=== PATIENT | male | born 1960 | race Caucasian/White ===

== ENCOUNTER 2020-07-29 11:04 | Outpatient (REF) | payer MEDICARE, MEDICAID, SELFPAY | END 2020-07-29 11:05 | disposition home or self-care (01) | LOC: HO.LAB 11:04 | PROVIDERS: Visit Provider Internal Medicine | DX: Z20.828 Contact with and (suspected) exposure to other viral communicable diseases (principal) | CPT/HCPCS: C9803; U0003 ==

== ENCOUNTER 2020-08-12 16:31 | Outpatient (REF) | payer MEDICARE, MEDICAID, SELFPAY | END 2020-08-12 16:32 | disposition home or self-care (01) | LOC: HO.LAB 16:31 | PROVIDERS: Visit Provider Internal Medicine | DX: Z20.828 Contact with and (suspected) exposure to other viral communicable diseases (principal) | CPT/HCPCS: C9803; U0003 ==

== ENCOUNTER 2020-08-29 16:41 | Outpatient (REF) | payer MEDICARE, MEDICAID, SELFPAY | END 2020-08-29 16:42 | disposition home or self-care (01) | LOC: HO.LAB 16:41 | PROVIDERS: Visit Provider Internal Medicine | DX: Z20.828 Contact with and (suspected) exposure to other viral communicable diseases (principal) | CPT/HCPCS: C9803; U0003 ==

== ENCOUNTER 2020-12-27 02:36 | Emergency (ER) | payer MEDICARE, MEDICAID, SELFPAY ==
--- NOTE | ~2020-12-27 | CT_ITS ---
EXAMINATION: NONCONTRAST HEAD CT NONCONTRAST MAXILLOFACIAL CT NONCONTRAST CERVICAL SPINE CT INDICATION INFORMATION: Unwitnessed fall COMPARISON: 05/31/2019 TECHNIQUE: Separate noncontrast CT examinations of the head, maxillofacial bones, and cervical spine were performed. Coronal and sagittal images were created for each examination at the technologist workstation. This CT examination was performed using dose optimization techniques as appropriate, variously including the following: *Automated exposure control *Adjustment of mA and/or kV according to patient size (this includes techniques or standardized protocols for targeted exams where dose is matched to indication/reason for exam; i.e. extremities or head) *Use of iterative reconstruction technique DLP: 2364 mGy-cm FINDINGS: Head: There is no evidence of acute intracranial hemorrhage or territorial infarction. No abnormal mass effect or midline shift is seen. [place] to white matter differentiation is well preserved. No extra-axial fluid collections are identified. No hydrocephalus. Small calcification seen in the fourth ventricle, unchanged from prior. Proportional prominence of the ventricles and sulcal spaces is consistent with mild volume loss. There is no abnormal attenuation within the brain parenchyma. No acute soft tissue abnormality. No calvarial fracture. The mastoid air cells are well aerated. Maxillofacial: No acute maxillofacial fractures are seen. The pterygoid plates are intact. The lamina papyracea are intact. The zygomatic arches are intact. The orbital rims are intact. Radiopaque density in the lower lip soft tissues. The frontal, maxillary, ethmoid, and sphenoid sinuses are well aerated. The uncinate process is normal bilaterally. The infundibula and middle meati are patent. The nasal septum deviates to the right. The mandibular heads are well-seated in the condylar fossa. The orbits demonstrate a normal appearance bilaterally. The globes are intact, and there are no suspicious findings to suggest retrobulbar hemorrhage. Cervical spine: Anterior fusion hardware in place from C4-C7. Hardware is intact. Alignment is maintained. There is anatomic alignment of the vertebral bodies and posterior elements. The atlantoaxial and atlantooccipital articulations are intact. Vertebral body heights are maintained. Disc space narrowing at C3-C4 with endplate sclerosis. Mild multilevel facet arthropathy. No evidence of acute fracture. No prevertebral soft tissue swelling. Visualized portions of the lung apices are unremarkable. The thyroid gland is unremarkable. CT/CT cervical spine wo con IMPRESSION: 1. No acute intracranial finding. 2. No acute maxillofacial fracture. 3. No cervical spine fracture or malalignment. Intact fusion hardware.
--- NOTE | 2020-12-27 02:43 | ECG_ITS ---
Test Reason : FALL Blood Pressure : / mmHG Vent. Rate : 088 BPM Atrial Rate : 088 BPM P-R Int : 144 ms QRS Dur : 104 ms QT Int : 374 ms P-R-T Axes : 053 025 051 degrees QTc Int : 452 ms Normal sinus rhythm with sinus arrhythmia Normal ECG When compared with ECG of 01-JUN-2019 12:30, No significant change was found Referred By: Joan Zamora Electronically Signed By:DANIELLA MARTIN MD
[2020-12-27 02:45] VITALS: BP 100/60; BP 106/73; PULSE 84; PULSE 90; RESP 19; TEMP 36.8; O2SAT 97; BMI 26.9
--- NOTE | 2020-12-27 02:55 | ED_ITS ---
HPI - Fall General Chief Complaint: Fall Stated Complaint: fall Time Seen by Provider: 12/27/20 02:43 Source: patient, family (Daughter) and EMS Mode of arrival: EMS History of Present Illness HPI Narrative: 60-year-old male arrives via EMS from home status post unwitnessed fall. Patient states that he has multiple myeloma, does not recall the fall event. As per the daughter she states that she heard her father groaning and went in the kitchen to find him laying on the ground. She endorses that patient was instructed to stop taking his gabapentin and amitriptyline, however she suspects that he has taken it regardless. Otherwise, patient denies any fever, chills, shortness of breath, chest pain, GI symptoms, or symptoms. Related Data Home Medications Medication Instructions Recorded Confirmed atorvastatin 20 mg PO BEDTIME 12/27/20 12/27/20 fluoxetine 40 mg PO QAM 12/27/20 12/27/20 omeprazole 40 mg PO DAILY 12/27/20 12/27/20 topiramate [Topamax] 50 mg PO QPM 12/27/20 12/27/20 Allergies Allergy/AdvReac Type Severity Reaction Status Date / Time acetaminophen [From PERCOCET] Allergy Unknown RASH Verified 12/27/20 04:28 oxycodone [From PERCOCET] Allergy Unknown RASH Verified 12/27/20 04:28 Review of Systems Review of Systems: Pertinent positives and negatives as stated in HPI 10 point review of systems is otherwise negative. PMFSH Past Medical History Source: nursing notes reviewed Social History Social History Alcohol intake: current Alcohol intake frequency: a few times a month Smoking Status: Never smoker Use of substances other than those prescribed or required for medical reasons: No Advance Directives: No Physical Exam Vital Signs: Vital Signs: Last Vital Signs Temp 98.2 F 12/27/20 03:04 Pulse 87 12/27/20 05:55 Resp 16 12/27/20 05:55 BP 132/80 12/27/20 05:55 Pulse Ox 97 12/27/20 05:55 Body Mass Index 26.9 VITAL SIGNS: Reviewed. GENERAL: Well developed, well nourished, in no acute distress. HEAD: Normocephalic/atraumatic, EYES: PERRLA, EOMI intact without pain, no nystagmus EARS: Ext canals without abnormality NOSE: Nares patent bilateral OROPHARYNX: no oral lesions noted, posterior pharynx clear 2-3 teeth are chipped as well as a laceration at the lower lip and under side of chin. NECK: Supple, no adenopathy LUNGS: Normal breath sounds. No adventitious sounds or accessory muscle use. SpO2<97> CARDIOVASCULAR: Regular rate and rhythm without noted murmurs, ABDOMEN: Soft, non-tender, non-distended with bowel sounds. MUSCULOSKELETAL: No tenderness, deformities, or effusions noted on gross inspection. EXTREMITIES: No cyanosis, clubbing or edema. SKIN: Inspection of the skin reveals avulsion at left dorsum hand, hemostatic NEUROLOGIC: Alert and oriented x 4. Strength and sensation to light touch were grossly intact x 4. Course Course Course Narrative: 60-year-old male with history and clinical presentation suggestive of syncope and unclear if secondary to medication but will rule out infection/anemia/arrhythmia as well as CT head/face/cervical spine. Review of all investigations negative for acute findings. Through and through laceration of the base of the lower lip and laceration of submental repaired without complications. Suspect patient has fall in the absence of any acute medical findings is secondary to medication usage that he had been instructed to avoid. Patient was ambulated at bedside without difficulty prior to discharge. Procedures Laceration Laceration 1: Site: face (Chin) Size (cm): 2 Description: linear Depth: [id number] Local Anesthetic: lidocaine 2% Amount of anesthesia used (mL): 2 Pre-repair: wound explored, irrigated extensively and deep structures intact Skin layer closed with: nylon Size (cm): 3-0 Number of sutures: 3 Technique: simple, interrupted Laceration 2: Site: face (Submental) Size (cm): 2 Description: linear Depth: simple, single layer Local Anesthetic: lidocaine 2% Amount of anesthesia used (mL): 1 Pre-repair: wound explored, irrigated extensively and deep structures intact Skin layer closed with: nylon Size (cm): 3-0 Number of sutures: 2 Laceration 3: Site: other (Mouth) Size (cm): 2 Description: linear Depth: [id number] Local Anesthetic: lidocaine 2% Amount of anesthesia used (mL): 2 Pre-repair: wound explored and irrigated extensively Skin layer closed with: other (Chromic gut) Size (cm): 6-0 Number of sutures: 3 Technique: simple, interrupted MDM - Fall Lab Data Result diagrams: 12/27/20 03:32 12/27/20 03:32 Labs: Lab Results 12/27/20 12/27/20 12/27/20 Range/Units 03:32 03:32 03:32 WBC 10.0 (4.8-10.8) X10*3/uL RBC 4.92 (4.60-5.80) X10*6/uL Hgb 14.0 (14.0-18.0) g/dl Hct 42.8 (42-52) % MCV 87.0 (80-98) fL MCH 28.5 (27.0-33.0) pg MCHC 32.7 (31.0-36.0) g/dl RDW 15.6 (11.0-16.0) % Plt Count 216 (160-400) X10*3/uL MPV 9.2 L (9.4-12.4) fL Immature Gran % (Auto) 0.4 (0.0-0.4) % Neut % (Auto) 81.5 H (45-73) % Lymph % (Auto) 10.7 L (20-40) % Treg[place] % (Auto) 7.2 (2-11) % Eos % (Auto) 0.0 (0-4) % Baso % (Auto) 0.2 (0-2) % Lymph # (Auto) 1.1 L (1.2-4.9) X10*3/uL [place] # (Auto) 0.7 (0.1-1.2) X10*3/uL Eos # (Auto) 0.0 (0.0-0.4) X10*3/uL Baso # (Auto) 0.0 (0.0-0.2) X10*3/uL Abs Immat Gran (auto) 0.04 H (0.00-0.03) X10*3/uL Absolute Neuts (auto) 8.1 (2.0-8.3) X10*3/uL Absolute Nucleated RBC 0.000 (0.0-0.012) X10*3/uL Nucleated RBC % (auto) 0.0 (0.0-0.2) /100WBC PT (10.8-13.0) SEC INR (0.9-1.1) APTT (24.1-38.0) SEC Sodium 142 (135-145) mmol/L Potassium 3.9 (3.3-5.1) mmol/L Chloride 109 H (96-108) mmol/L Carbon Dioxide 21 L (22-29) mmol/L Anion Gap 16 (12-20) BUN 26 H (9-16) mg/dL Creatinine 1.37 (0.5-1.4) mg/dL Estim Creat Clear Calc 48.6 Estimated GFR 53 Random Glucose 120 H (60-115) mg/dL Calcium 9.4 (8.4-10.2) mg/dL Total Bilirubin 0.3 (0.0-1.0) mg/dL AST 21 (5-37) U/L ALT 22 (0-40) U/L Alkaline Phosphatase 85 (39-117) U/L Troponin I High Sens (<3.5-35.0) ng/L Total Protein 6.0 L (6.5-8.0) g/dL Albumin 3.9 (3.5-5.0) g/dL Urine Color Urine Appearance Urine pH (5.0-8.0) Ur Specific [place] (1.005-1.025) Urine Protein (NEG-TRACE) MG/DL Urine Glucose (UA) (NEG) MG/DL Urine Ketones (NEG) MG/DL Urine Blood (NEG) Urine Nitrite (NEG) Ur Leukocyte Esterase (NEG) Urine RBC (0) /HPF Urine WBC (0-4) /HPF Ur Squamous Epith Cells /LPF Urine Bacteria /LPF Urine Mucus /LPF Ethyl Alcohol < 10 mg/dL 12/27/20 12/27/20 12/27/20 Range/Units 03:32 03:32 06:25 WBC (4.8-10.8) X10*3/uL RBC (4.60-5.80) X10*6/uL Hgb (14.0-18.0) g/dl Hct (42-52) % MCV (80-98) fL MCH (27.0-33.0) pg MCHC (31.0-36.0) g/dl RDW (11.0-16.0) % Plt Count (160-400) X10*3/uL MPV (9.4-12.4) fL Immature Gran % (Auto) (0.0-0.4) % Neut % (Auto) (45-73) % Lymph % (Auto) (20-40) % Trego % (Auto) (2-11) % Eos % (Auto) (0-4) % Baso % (Auto) (0-2) % Lymph # (Auto) (1.2-4.9) X10*3/uL [place] # (Auto) (0.1-1.2) X10*3/uL Eos # (Auto) (0.0-0.4) X10*3/uL Baso # (Auto) (0.0-0.2) X10*3/uL Abs Immat Gran (auto) (0.00-0.03) X10*3/uL Absolute Neuts (auto) (2.0-8.3) X10*3/uL Absolute Nucleated RBC (0.0-0.012) X10*3/uL Nucleated RBC % (auto) (0.0-0.2) /100WBC PT 11.9 (10.8-13.0) SEC INR 1.0 (0.9-1.1) APTT 26.7 (24.1-38.0) SEC Sodium (135-145) mmol/L Potassium (3.3-5.1) mmol/L Chloride (96-108) mmol/L Carbon Dioxide (22-29) mmol/L Anion Gap (12-20) BUN (9-16) mg/dL Creatinine (0.5-1.4) mg/dL Estim Creat Clear Calc Estimated GFR Random Glucose (60-115) mg/dL Calcium (8.4-10.2) mg/dL Total Bilirubin (0.0-1.0) mg/dL AST (5-37) U/L ALT (0-40) U/L Alkaline Phosphatase (39-117) U/L Troponin I High Sens < 3.5 (<3.5-35.0) ng/L Total Protein (6.5-8.0) g/dL Albumin (3.5-5.0) g/dL Urine Color DARK YELLOW Urine Appearance CLEAR Urine pH 7.0 (5.0-8.0) Ur Specific [place] 1.020 (1.005-1.025) Urine Protein NEG (NEG-TRACE) MG/DL Urine Glucose (UA) NEG (NEG) MG/DL Urine Ketones 5 (NEG) MG/DL Urine Blood TRACE (NEG) Urine Nitrite NEG (NEG) Ur Leukocyte Esterase NEG (NEG) Urine RBC 1-4 (0) /HPF Urine WBC 0-2 (0-4) /HPF Ur Squamous Epith Cells 1+ /LPF Urine Bacteria NONE /LPF Urine Mucus 1+ /LPF Ethyl Alcohol mg/dL ECG Data Attestation: I personally reviewed and interpreted this ECG as follows: Prior ECG tracings: available for review (06/01/2019 no acute changes on comparison) Interpretation: Normal sinus rhythm, HR-88, no evidence of acute ischemia, DC/QTC are within normal limits Discharge Plan Discharge Clinical Impression: Fall, Laceration Patient Disposition: Home, Self-Care Instructions: Care For Your Stitches (ED), Laceration (ED), Abrasion (ED) Additional Instructions: Resume all home medications as prescribed. STOP gabapentin and amitriptyline as you have previously been instructed to do so. Follow-up with your primary care provider in the next 1-2 days for re- evaluation. Sutures should be removed in 5 days, you may cleanse the area gently with soap and water. YOU MUST FOLLOW-UP WITH A DENTIST TODAY. Return to the emergency department if you have any acute worsening of your symptoms. Prescriptions: No Action fluoxetine 40 mg Capsule 40 mg PO QAM RF: 0 atorvastatin 20 mg Tablet 20 mg PO BEDTIME RF: 0 omeprazole 40 mg Capsule,Delayed Release(Dr/Ec) 40 mg PO DAILY RF: 0 topiramate [Topamax] 50 mg Tablet 50 mg PO QPM RF: 0 Referrals: Physician,Unknown [Primary Care Provider] - 2 days
[2020-12-27 03:04] VITALS: BP 106/73; PULSE 82; RESP 18; TEMP 36.8; O2SAT 96
[2020-12-27 03:37] LABS: Basophils Percent Auto 0.2 % (0-2); Hematocrit 42.8 % (42-52); Imm Gran Abs Auto 0.04 X10*3/uL (0.00-0.03); Imm Gran Pct Auto 0.4 % (0.0-0.4); Lymphocytes Absolute Auto 1.1 X10*3/uL (1.2-4.9); Lymphocytes Percent Auto 10.7 % (20-40); MANUAL DIFF FLAG NO; Mean Corpuscular HGB Conc 32.7 g/dl (31.0-36.0); Mean Corpuscular Hemoglobin 28.5 pg (27.0-33.0); Mean Platelet Volume 9.2 fL (9.4-12.4); Monocytes Absolute Auto 0.7 X10*3/uL (0.1-1.2); Monocytes Percent Auto 7.2 % (2-11); Neutrophils Absolute Auto 8.1 X10*3/uL (2.0-8.3); Neutrophils Percent Auto 81.5 % (45-73); Platelet Count 216 X10*3/uL (160-400); Red Blood Count 4.92 X10*6/uL (4.60-5.80); Red Cell Distribution Width 15.6 % (11.0-16.0)
--- NOTE | 2020-12-27 03:38 | PC.NURSE ---
Pt aaox4, resting on stretcher in NAD, breathing with ease on RA. Pt stretcher rails are padded with pillows as no seizure pads were available. Pt labs, head CT and EKG obtained; awaiting results. 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 Pt VSS. Stretcher in lowest locked position, rails raised, call estrada within reach.
[2020-12-27 03:42] LABS: Prothrombin Time 11.9 SEC (10.8-13.0)
[2020-12-27 03:45] LABS: Partial Thromboplastin Time 26.7 SEC (24.1-38.0)
[2020-12-27 04:01] LABS: Ethanol < 10 mg/dL
[2020-12-27 04:05] LABS: Alanine Aminotransferase 22 U/L (0-40); Albumin Level 3.9 g/dL (3.5-5.0); Alkaline Phosphatase 85 U/L (39-117); Anion Gap 16 (12-20); Aspartate Amino Transferase 21 U/L (5-37); Bilirubin Total 0.3 mg/dL (0.0-1.0); Blood Urea Nitrogen 26 mg/dL (9-16); Calcium 9.4 mg/dL (8.4-10.2); Carbon Dioxide 21 mmol/L (22-29); Chloride 109 mmol/L (96-108); Creatinine Clr Calc Pharmacy 48.6; Estimated Glomerular Filt Rate 53; Glucose Random 120 mg/dL (60-115); Potassium 3.9 mmol/L (3.3-5.1); Sodium 142 mmol/L (135-145)
--- NOTE | 2020-12-27 04:08 | PC.NURSE ---
This RN spoke to pt's daughter, Edilia [phone], who states she woke up to her father making some noise. Daughter found pt on kitchen floor after he had sustained the unwitnessed fall with noticeable injury. Per daughter, she believes pt may have taken both gabapentin and amitriptyline for sleep stating his doctor told him to stop taking those but he still has them from when they were prescribed and I think that he takes them when he can't sleep but they make him unsteady on his feet.
[2020-12-27 04:10] LABS: Troponin-I High Sensitivity < 3.5 ng/L (<3.5-35.0)
[2020-12-27] MEDS: Lidocaine HCl 2 % MPF 5 ML VIAL INFILTRATI (05:11)
--- NOTE | 2020-12-27 05:11 | PC.NURSE ---
lido scanned and given to provider for use
[2020-12-27 05:55] VITALS: BP 132/80; PULSE 87; RESP 16; O2SAT 97
[2020-12-27] MEDS: Bacitracin Oint 14 GM TUBE 1 APPL TOPICAL (06:13)
--- NOTE | 2020-12-27 06:25 | PC.NURSE ---
Pt able to stand to provide urine sample in urinal. Pt denies feelings of lightheadedness/dizziness. Pt states I'm just really, really tired. This RN as standby assist though pt able to ambulate independently. Urine sample sent to lab for processing.
[2020-12-27 06:37] LABS: Glucose Urine UA NEG (NEG); Leukocyte Esterase Urine NEG (NEG); Nitrite Urine NEG (NEG); Urine Blood TRACE (NEG); Urine Ketones 5 MG/DL (NEG); Urine Protein NEG (NEG-TRACE)
[2020-12-27 06:41] LABS: Appearance Urine CLEAR; Color Urine DARK YELLOW
[2020-12-27 06:50] LABS: Mucus Urine 1+ /LPF; Squamous Epithelial Cell Urine 1+ /LPF; WBC Urine 0-2 /HPF (0-4)
[2020-12-27 06:53] LABS: Amphetamine Screen Urine Not Detected (Not Detect); Barbiturates, Urine Not Detected (Not Detect); Benzodiazepines Screen Urine POSITIVE (Not Detect); Cannabinoid Screen Urine POSITIVE (Not Detect); Cocaine Screen Urine Not Detected (Not Detect); Opiate Screen Urine Not Detected (Not Detect); Phencyclidine Screen Urine Not Detected (Not Detect)
--- NOTE | 2020-12-27 06:53 | PC.NURSE ---
This RN called pt's daughter Edilia and gave information regarding pt's need to f/u with PCP for suture removal in 5 days, and need for f/u with dentist today d/t chipped tooth. Edilia expresses understanding. Edilia states she is unable to pick father up from ED, will contact her uncle Rodolfo to rock picker patient.
== END 2020-12-27 07:34 | disposition home or self-care (01) ==
PROVIDERS: Emergency Provider Student in an Organized Health Care Education/Training Program
DX: S01.512A Laceration without foreign body of oral cavity, initial encounter (principal); S01.81XA Laceration without foreign body of other part of head, initial encounter; S60.512A Abrasion of left hand, initial encounter; W18.30XA Fall on same level, unspecified, initial encounter; Y93.9 Activity, unspecified; Y92.010 Kitchen of single-family (private) house as the place of occurrence of the external cause; Y99.9 Unspecified external cause status
CPT/HCPCS: 12054; 36415; 70450; 70486; 72125; 80053; 80307; 80320; 81001; 84484; 85025; 85610; 85730; 93005; 99284; 99285

== ENCOUNTER 2021-02-13 22:03 | Emergency (ER) | payer MEDICARE, MEDICAID, SELFPAY ==
--- NOTE | ~2021-02-13 | US_ITS ---
EXAMINATION: US SCROTUM CLINICAL INFORMATION: Left testicular pain for 4 days. COMPARISON: None TECHNIQUE: A sonogram of the scrotum was performed assessing henley-scale appearance and color Doppler flow. Spectral Doppler analysis of the arterial and venous flow were performed in the testes bilaterally. FINDINGS: RIGHT: Right testicle measures 4.3 x 1.9 x 2.4 cm, volume 10 mL. No focal testicular parenchymal lesions are visualized. Spectral Doppler analysis of the arterial and venous flow is normal in the right testis. Right epididymal head is normal in size. There is a 2 mm cyst within the epididymal head. No right hydrocele or varicocele is seen. Right epididymal Doppler flow is normal. LEFT: Left testicle measures 3.7 x 1.8 x 2.0 cm, volume 7.1 mL. The left testicular parenchyma is slightly heterogeneous. No focal testicular parenchymal lesions are visualized. Spectral Doppler analysis of the arterial and venous flow is normal in the left testis. Left epididymal head is normal in size. There is a 6 mm cyst within the epididymal head and a 5 mm cyst within the epididymal body. No left hydrocele or varicocele is seen. Left epididymal Doppler flow is normal. US/US scrotum IMPRESSION: * Nonspecific mild heterogeneity of the left testicular parenchyma, without corresponding abnormality/asymmetry in blood flow. This could represent parenchymal scarring related to previous infectious/inflammatory or posttraumatic insult, or very mild/early orchitis. * Small bilateral epididymal/epididymal head cysts/spermatocele. * No evidence of testicular torsion
--- NOTE | ~2021-02-13 | CT_ITS ---
EXAMINATION: CT ABDOMEN AND PELVIS WITH CONTRAST CLINICAL INFORMATION: Lower abdominal pain COMPARISON: None TECHNIQUE: Multidetector volumetric images were obtained from the superior aspect of the liver through the pubic symphysis following administration 85 mL of Omnipaque 350 intravenous contrast. Sagittal and coronal reformatted images were obtained on the technologist's workstation. Oral contrast: No This CT examination was performed using dose optimization techniques as appropriate, variously including the following: *Automated exposure control *Adjustment of mA and/or kV according to patient size (this includes techniques or standardized protocols for targeted exams where dose is matched to indication/reason for exam; i.e. extremities or head) *Use of iterative reconstruction technique DLP: 516 mGy-cm FINDINGS: LUNG BASES: The visualized lung bases are unremarkable. LIVER, GALLBLADDER, AND BILIARY TREE: The liver is normal in size, shape, and attenuation. No focal hepatic lesion or biliary ductal dilatation is present. Cholecystectomy. PANCREAS: Unremarkable. SPLEEN: Unremarkable. ADRENAL GLANDS: Unremarkable. KIDNEYS AND URETERS: The kidneys are normal in size, shape, and attenuation. There are bilateral simple renal cysts not requiring additional follow-up. No hydronephrosis, hydroureter, or calculi seen. No perinephric stranding. BLADDER: Mild bladder wall thickening. No perivesicular fat stranding. GASTROINTESTINAL TRACT: No intestinal obstruction or inflammation. Status post appendectomy and sigmoid colectomy. Intact anastomosis within the pelvis. There are loops of small bowel within the mid and lower abdomen demonstrating submucosal fat deposition. No perienteric inflammation. ABDOMINAL WALL: No significant hernia is appreciated. LYMPH NODES: Normal. VASCULAR: Aorta is atherosclerotic but normal caliber. Patent venous structures. PELVIC VISCERA: Prostate and seminal vesicles unremarkable. OSSEOUS STRUCTURES: No acute or suspicious osseous abnormalities. CT/CT abdomen pelvis w con IMPRESSION: * No acute findings within the abdomen or pelvis to explain the patient's symptomatology. * Previous sigmoid colectomy with intact anastomosis within the pelvis. * There are multiple loops of small bowel demonstrating submucosal fat deposition. This can be seen as a normal finding in the setting of obesity, but can also been seen in association with inflammatory bowel disease or prior radiation treatment among other etiologies. * Cholecystectomy. * Appendectomy.
--- NOTE | ~2021-02-13 | US_ITS ---
EXAMINATION: US SCROTUM CLINICAL INFORMATION: Left testicular pain for 4 days. COMPARISON: None TECHNIQUE: A sonogram of the scrotum was performed assessing henley-scale appearance and color Doppler flow. Spectral Doppler analysis of the arterial and venous flow were performed in the testes bilaterally. FINDINGS: RIGHT: Right testicle measures 4.3 x 1.9 x 2.4 cm, volume 10 mL. No focal testicular parenchymal lesions are visualized. Spectral Doppler analysis of the arterial and venous flow is normal in the right testis. Right epididymal head is normal in size. There is a 2 mm cyst within the epididymal head. No right hydrocele or varicocele is seen. Right epididymal Doppler flow is normal. LEFT: Left testicle measures 3.7 x 1.8 x 2.0 cm, volume 7.1 mL. The left testicular parenchyma is slightly heterogeneous. No focal testicular parenchymal lesions are visualized. Spectral Doppler analysis of the arterial and venous flow is normal in the left testis. Left epididymal head is normal in size. There is a 6 mm cyst within the epididymal head and a 5 mm cyst within the epididymal body. No left hydrocele or varicocele is seen. Left epididymal Doppler flow is normal. US/US scrotum doppler IMPRESSION: * Nonspecific mild heterogeneity of the left testicular parenchyma, without corresponding abnormality/asymmetry in blood flow. This could represent parenchymal scarring related to previous infectious/inflammatory or posttraumatic insult, or very mild/early orchitis. * Small bilateral epididymal/epididymal head cysts/spermatocele. * No evidence of testicular torsion
[2021-02-13 22:52] VITALS: BP 126/68; PULSE 91; RESP 14; TEMP 37.1; O2SAT 99; BMI 25.9
[2021-02-13 23:00] LABS: Glucose Urine UA NEG (NEG); Leukocyte Esterase Urine NEG (NEG); Nitrite Urine NEG (NEG); Specific Gravity - Urine >= 1.030 (1.005-1.025); Urine Blood 1+ (NEG); Urine Ketones NEG (NEG); Urine Protein NEG (NEG-TRACE)
[2021-02-13 23:02] LABS: Appearance Urine CLEAR; Color Urine YELLOW
[2021-02-13 23:14] LABS: Squamous Epithelial Cell Urine TRACE /LPF; WBC Urine 0-2 /HPF (0-4)
--- NOTE | 2021-02-13 23:53 | ED_ITS ---
HPI - Male Genitourinary General Chief complaint: Urogenital-Male Stated complaint: diff urinating Time Seen by Provider: 02/13/21 23:47 History of Present Illness HPI Narrative: Patient is a 60-year-old male. Previous history of esophageal surgery. Previous history of hernia surgery. Presents today with having lower abdominal pain. [place] into his testicles. No difficulty urinating. Positive BM. No nausea no vomiting. Pain excruciating. There is no fever no chills. No history of similar pains in the past. No cough no congestion or upper respiratory symptoms. No diaphoresis. Patient is from home. Patient claims that he has pain to his bilateral testicles. Is sexually active 1 partner. No penile discharge. Related Data Home Medications Medication Instructions Recorded Confirmed atorvastatin 20 mg PO BEDTIME 12/27/20 12/27/20 fluoxetine 40 mg PO QAM 12/27/20 12/27/20 omeprazole 40 mg PO DAILY 12/27/20 12/27/20 topiramate [Topamax] 50 mg PO QPM 12/27/20 12/27/20 Previous Rx's Medication Instructions Recorded ibuprofen 400 mg PO Q6H PRN #20 tab 02/14/21 levofloxacin 500 mg PO DAILY #10 tab 02/14/21 Allergies Allergy/AdvReac Type Severity Reaction Status Date / Time acetaminophen [From PERCOCET] Allergy Unknown RASH Verified 12/27/20 04:28 oxycodone [From PERCOCET] Allergy Unknown RASH Verified 12/27/20 04:28 Review of Systems Review of Systems: Constitutional: No Weight loss, No Fever, No Chills, No Night Sweats, No Fatigue, No Malaise ENT/Mouth: No Hearing loss, No Ear Pain, No Nasal Congestion, No Sinus Pain, No Hoarseness, No sore throat, No Rhinorrhea, No Swallowing Difficulty Eyes: No Eye Pain, No Swelling, No Redness, No Foreign Body, No Discharge, No Vision Changes Cardiovascular: No Chest Pain, No SOB, No Dyspnea on Exertion, No Orthopnea, No Edema, No Palpitations Respiratory: No Cough, No Sputum, No Wheezing, No Smoke Exposure, No Dyspnea Gastrointestinal: No Nausea, No Vomiting, No Diarrhea, No Constipation, positive for abdominal Pain, No Hematochezia, No Melena Genitourinary: no irregular bleeding, No Dysuria, No Urinary Frequency, No Hematuria, No Urinary Incontinence, No Urgency, No Flank Pain, No Urinary Flow Changes, No Hesitancy. Positive testicular pain Musculoskeletal: No joint pain, No Myalgias, No Joint Swelling Skin: No Skin Lesions, No rash Neuro: No Weakness, No Numbness, No Paresthesias, No Loss of Consciousness, No Dizziness, No Headache Psych: No Anxiety/Panic, No Depression, No SI/HI/AH/VH, No Social Issues, Heme/Lymph: No Bruising, No Bleeding,No Lymphadenopathy Endocrine: No Polyuria, No Polydipsia, No Temperature Intolerance COUNTS INCLUDE 234 BEDS AT THE [facility] Past Medical History Attestation statement: The following information was validated with the patient. Social History Social History Alcohol intake: current Alcohol intake frequency: a few times a month Advance Directives: No Advance Directives Information Provided: No Physical Exam Vital Signs: Vital Signs: Last Vital Signs Temp 98.8 F 02/13/21 22:52 Pulse 73 02/14/21 01:53 Resp 16 02/14/21 01:53 BP 126/68 02/13/21 22:52 Pulse Ox 99 02/13/21 22:52 Body Mass Index 25.9 Appearance: Alert. Oriented X3. No acute distress. Eyes: Pupils equal, round and reactive to light. ENT: Pharynx normal. Neck: Normal inspection. Neck supple. No lymph nodes noted. No crepitus CVS: Normal heart rate and rhythm. Pulses normal. Normal S1 and S2 Respiratory: No respiratory distress. Breath sounds normal. No Wheezing. No rales Abdomen: Soft and nontender. No rigidity. No distention. good BS x4. Positive lower abdominal pain. Genital exam there is pain on palpation bilateral testicle. Cremasteric reflex is intact. There is no discharge on stripping of the penis. Skin: Skin warm and dry. Normal skin color. Normal skin turgor. Extremities: No lower extremity edema. Neurovascular intact to all extremities. No Lacerations. No Rash Neuro: Oriented X 3. No motor deficit. No sensory deficit. Moving all extermities. No slurred speech MDM - Male Genitourinary MDM Narrative Medical decision making narrative: CT of the abdomen was negative for any acute evidence of obstruction. No abscess no perforation. Ultrasound of the scrotum was negative for torsion. There is question of orchitis. Will start patient on levofloxacin. Will have patient follow-up on an outpatient basis. Elevate scrotum. Ice. Motrin for pain. Patient's urine showed no evidence of infection. In stable condition. Lab Data Result diagrams: 02/14/21 00:04 02/14/21 00:04 Labs: Lab Results 02/13/21 02/14/21 02/14/21 Range/Units 22:52 00:04 00:04 WBC 6.3 (4.8-10.8) X10*3/uL RBC 4.49 L (4.60-5.80) X10*6/uL Hgb 12.9 L (14.0-18.0) g/dl Hct 39.7 L (42-52) % MCV 88.4 (80-98) fL MCH 28.7 (27.0-33.0) pg MCHC 32.5 (31.0-36.0) g/dl RDW 14.6 (11.0-16.0) % Plt Count 244 (160-400) X10*3/uL MPV 9.3 L (9.4-12.4) fL Immature Gran % (Auto) 0.2 (0.0-0.4) % Neut % (Auto) 46.6 (45-73) % Lymph % (Auto) 39.5 (20-40) % [place] % (Auto) 8.0 (2-11) % Eos % (Auto) 4.6 H (0-4) % Baso % (Auto) 1.1 (0-2) % Lymph # (Auto) 2.5 (1.2-4.9) X10*3/uL [place] # (Auto) 0.5 (0.1-1.2) X10*3/uL Eos # (Auto) 0.3 (0.0-0.4) X10*3/uL Baso # (Auto) 0.1 (0.0-0.2) X10*3/uL Abs Immat Gran (auto) 0.01 (0.00-0.03) X10*3/uL Absolute Neuts (auto) 2.9 (2.0-8.3) X10*3/uL Absolute Nucleated RBC 0.000 (0.0-0.012) X10*3/uL Nucleated RBC % (auto) 0.0 (0.0-0.2) /100WBC Sodium (135-145) mmol/L Potassium (3.3-5.1) mmol/L Chloride (96-108) mmol/L Carbon Dioxide (22-29) mmol/L Anion Gap (12-20) BUN (9-16) mg/dL Creatinine (0.5-1.4) mg/dL Estim Creat Clear Calc Estimated GFR Random Glucose (60-115) mg/dL Calcium (8.4-10.2) mg/dL Total Bilirubin (0.0-1.0) mg/dL AST (5-37) U/L ALT (0-40) U/L Alkaline Phosphatase (39-117) U/L Total Protein (6.5-8.0) g/dL Albumin (3.5-5.0) g/dL Lipase 40 (8-78) U/L Urine Color YELLOW Urine Appearance CLEAR Urine pH 6.0 (5.0-8.0) Ur Specific [place] >= 1.030 H (1.005-1.025) Urine Protein NEG (NEG-TRACE) MG/DL Urine Glucose (UA) NEG (NEG) MG/DL Urine Ketones NEG (NEG) MG/DL Urine Blood 1+ H (NEG) Urine Nitrite NEG (NEG) Ur Leukocyte Esterase NEG (NEG) Urine RBC 5-9 H (0) /HPF Urine WBC 0-2 (0-4) /HPF Ur Squamous Epith Cells TRACE /LPF Urine Bacteria NONE /LPF 02/14/21 Range/Units 00:04 WBC (4.8-10.8) X10*3/uL RBC (4.60-5.80) X10*6/uL Hgb (14.0-18.0) g/dl Hct (42-52) % MCV (80-98) fL MCH (27.0-33.0) pg MCHC (31.0-36.0) g/dl RDW (11.0-16.0) % Plt Count (160-400) X10*3/uL MPV (9.4-12.4) fL Immature Gran % (Auto) (0.0-0.4) % Neut % (Auto) (45-73) % Lymph % (Auto) (20-40) % [place] % (Auto) (2-11) % Eos % (Auto) (0-4) % Baso % (Auto) (0-2) % Lymph # (Auto) (1.2-4.9) X10*3/uL [place] # (Auto) (0.1-1.2) X10*3/uL Eos # (Auto) (0.0-0.4) X10*3/uL Baso # (Auto) (0.0-0.2) X10*3/uL Abs Immat Gran (auto) (0.00-0.03) X10*3/uL Absolute Neuts (auto) (2.0-8.3) X10*3/uL Absolute Nucleated RBC (0.0-0.012) X10*3/uL Nucleated RBC % (auto) (0.0-0.2) /100WBC Sodium 146 H (135-145) mmol/L Potassium 4.9 D (3.3-5.1) mmol/L Chloride 111 H (96-108) mmol/L Carbon Dioxide 26 (22-29) mmol/L Anion Gap 14 (12-20) BUN 18 H (9-16) mg/dL Creatinine 1.03 (0.5-1.4) mg/dL Estim Creat Clear Calc 64.6 Estimated GFR > 60 Random Glucose 94 (60-115) mg/dL Calcium 9.0 (8.4-10.2) mg/dL Total Bilirubin 0.2 (0.0-1.0) mg/dL AST 23 (5-37) U/L ALT 13 (0-40) U/L Alkaline Phosphatase 77 (39-117) U/L Total Protein 5.8 L (6.5-8.0) g/dL Albumin 3.6 (3.5-5.0) g/dL Lipase (8-78) U/L Urine Color Urine Appearance Urine pH (5.0-8.0) Ur Specific [place] (1.005-1.025) Urine Protein (NEG-TRACE) MG/DL Urine Glucose (UA) (NEG) MG/DL Urine Ketones (NEG) MG/DL Urine Blood (NEG) Urine Nitrite (NEG) Ur Leukocyte Esterase (NEG) Urine RBC (0) /HPF Urine WBC (0-4) /HPF Ur Squamous Epith Cells /LPF Urine Bacteria /LPF Discharge Plan Discharge Clinical Impression: Orchitis Patient Disposition: Home, Self-Care Instructions: Orchitis (ED) Prescriptions: New levofloxacin 500 mg tablet 500 mg PO DAILY Qty: 10 RF: 0 ibuprofen 400 mg tablet 400 mg PO Q6H PRN (Reason: pain) Qty: 20 RF: 0 No Action fluoxetine 40 mg Capsule 40 mg PO QAM RF: 0 atorvastatin 20 mg Tablet 20 mg PO BEDTIME RF: 0 omeprazole 40 mg Capsule,Delayed Release(Dr/Ec) 40 mg PO DAILY RF: 0 topiramate [Topamax] 50 mg Tablet 50 mg PO QPM RF: 0 Referrals: Vianca Estrada MD [Primary Care Provider] - 2 days
[2021-02-14 00:08] VITALS: RESP 16
[2021-02-14] MEDS: HYDROmorphone HCl 0.5 MG/0.5 ML SYRINGE IVPUSH ×2 (00:08→02:46)
[2021-02-14 00:10] LABS: MANUAL DIFF FLAG NO
[2021-02-14 00:11] LABS: Basophils Absolute Auto 0.1 X10*3/uL (0.0-0.2); Basophils Percent Auto 1.1 % (0-2); Eosinophils Absolute Auto 0.3 X10*3/uL (0.0-0.4); Eosinophils Percent Auto 4.6 % (0-4); Hematocrit 39.7 % (42-52); Hemoglobin 12.9 g/dl (14.0-18.0); Imm Gran Abs Auto 0.01 X10*3/uL (0.00-0.03); Imm Gran Pct Auto 0.2 % (0.0-0.4); Lymphocytes Absolute Auto 2.5 X10*3/uL (1.2-4.9); Lymphocytes Percent Auto 39.5 % (20-40); Mean Corpuscular HGB Conc 32.5 g/dl (31.0-36.0); Mean Corpuscular Hemoglobin 28.7 pg (27.0-33.0); Mean Corpuscular Volume 88.4 fL (80-98); Mean Platelet Volume 9.3 fL (9.4-12.4); Monocytes Absolute Auto 0.5 X10*3/uL (0.1-1.2); Neutrophils Absolute Auto 2.9 X10*3/uL (2.0-8.3); Neutrophils Percent Auto 46.6 % (45-73); Platelet Count 244 X10*3/uL (160-400); Red Blood Count 4.49 X10*6/uL (4.60-5.80); Red Cell Distribution Width 14.6 % (11.0-16.0); White Blood Count 6.3 X10*3/uL (4.8-10.8)
[2021-02-14] MEDS: 0.9 % Sodium Chloride 1,000 ML 999 ML IV (00:12)
[2021-02-14 00:32] LABS: Lipase 40 U/L (8-78)
[2021-02-14 00:34] LABS: Alanine Aminotransferase 13 U/L (0-40); Albumin Level 3.6 g/dL (3.5-5.0); Alkaline Phosphatase 77 U/L (39-117); Anion Gap 14 (12-20); Aspartate Amino Transferase 23 U/L (5-37); Bilirubin Total 0.2 mg/dL (0.0-1.0); Blood Urea Nitrogen 18 mg/dL (9-16); Carbon Dioxide 26 mmol/L (22-29); Chloride 111 mmol/L (96-108); Creatinine Clr Calc Pharmacy 64.6; Estimated Glomerular Filt Rate > 60; Glucose Random 94 mg/dL (60-115); Potassium 4.9 mmol/L (3.3-5.1); Sodium 146 mmol/L (135-145); Total Protein 5.8 g/dL (6.5-8.0)
[2021-02-14] MEDS: iohexoL 350 MG/ML 100 ML INFUS..BTL 85 ML IV (01:05)
[2021-02-14 01:53] VITALS: PULSE 73; RESP 16
[2021-02-14] MEDS: levoFLOXacin 500 MG TABLET PO (02:45)
[2021-02-14 02:46] VITALS: RESP 16
== END 2021-02-14 03:03 | disposition home or self-care (01) ==
PROVIDERS: Emergency Provider Emergency Medicine Emergency Medical Services; PCP Internal Medicine
DX: N45.2 Orchitis (principal); R10.30 Lower abdominal pain, unspecified; N50.812 Left testicular pain; N50.811 Right testicular pain
CPT/HCPCS: 36415; 74177; 76870; 80053; 81001; 81003; 83690; 85025; 93975; 96361; 96374; 99284; J1170; Q9967

== ENCOUNTER 2021-09-19 12:59 | Outpatient (REF) | payer MEDICARE, MEDICAID, SELFPAY | END 2021-09-19 13:00 | disposition home or self-care (01) | LOC: HO.LAB 12:59 | PROVIDERS: PCP Nurse Practitioner Acute Care; Visit Provider Nurse Practitioner Acute Care | DX: Z13.89 Encounter for screening for other disorder (principal) ==

== ENCOUNTER 2021-09-25 11:06 | Outpatient (REF) | payer MEDICARE, MEDICAID, SELFPAY ==
[2021-09-25 11:34] LABS: MANUAL DIFF FLAG NO
[2021-09-25 11:47] LABS: Basophils Absolute Auto 0.1 X10*3/uL (0.0-0.2); Basophils Percent Auto 0.8 % (0-2); Eosinophils Absolute Auto 0.2 X10*3/uL (0.0-0.4); Eosinophils Percent Auto 3.5 % (0-4); Hematocrit 46.1 % (42.0-52.0); Hemoglobin 14.8 g/dl (14.0-18.0); Imm Gran Abs Auto 0.02 X10*3/uL (0.00-0.03); Imm Gran Pct Auto 0.3 % (0.0-0.4); Lymphocytes Absolute Auto 1.8 X10*3/uL (1.2-4.9); Lymphocytes Percent Auto 27.2 % (20-40); Mean Corpuscular HGB Conc 32.1 g/dl (31.0-36.0); Mean Corpuscular Hemoglobin 28.8 pg (27.0-33.0); Mean Corpuscular Volume 89.7 fL (80.0-98.0); Mean Platelet Volume 9.3 fL (9.4-12.4); Monocytes Absolute Auto 0.4 X10*3/uL (0.1-1.2); Monocytes Percent Auto 5.9 % (2-11); Neutrophils Percent Auto 62.3 % (45-73); Platelet Count 239 X10*3/uL (160-400); Red Blood Count 5.14 X10*6/uL (4.60-5.80); Red Cell Distribution Width 14.6 % (11.0-16.0); White Blood Count 6.5 X10*3/uL (4.8-10.8)
[2021-09-25 11:52] LABS: Estimated Average Glucose 100 mg/dL; Hemoglobin A1c % 5.1 %
[2021-09-25 12:21] LABS: Alanine Aminotransferase 19 U/L (0-40); Alkaline Phosphatase 80 U/L (39-117); Anion Gap 11 (12-20); Aspartate Amino Transferase 19 U/L (5-37); Bilirubin Total 0.5 mg/dL (0.0-1.0); Blood Urea Nitrogen 15 mg/dL (9-16); Calcium 9.7 mg/dL (8.4-10.2); Carbon Dioxide 29 mmol/L (22-29); Chloride 106 mmol/L (96-108); Cholesterol 220 mg/dL; Estimated Glomerular Filt Rate > 60; Glucose Fasting 94 mg/dL (60-99); HDL Cholesterol 43 mg/dL; LDL Cholesterol Calculated 143 mg/dl; Potassium 4.4 mmol/L (3.3-5.1); Sodium 142 mmol/L (135-145); Total Protein 6.7 g/dL (6.5-8.0); Triglycerides 170 mg/dL
[2021-09-25 12:42] LABS: Prostate Specific Antigen Scr 2.12 ng/mL (<0.05-4.0)
[2021-09-25 13:15] LABS: Folate 16.6 ng/mL (> or = 4.0); Vitamin B12 491 pg/mL (200-900)
[2021-09-30 13:15] LABS: Vitamin D 25-OH, D2 <4 ng/mL; Vitamin D 25-OH, D3 14 ng/mL; Vitamin D 25-OH, Total 14 ng/mL (30-100)
== END 2021-09-25 11:07 | disposition home or self-care (01) ==
LOC: HO.LAB 11:06
PROVIDERS: Visit Provider Nurse Practitioner Acute Care
DX: Z12.5 Encounter for screening for malignant neoplasm of prostate (principal); E78.00 Pure hypercholesterolemia, unspecified
CPT/HCPCS: 36415; 80053; 80061; 82306; 82607; 82746; 83036; 84153; 84443; 85025

== ENCOUNTER 2021-10-13 09:03 | Outpatient (REF) | payer MEDICARE, MEDICAID, SELFPAY ==
--- NOTE | ~2021-10-13 | XR_ITS ---
EXAMINATION: XR RIBS, BILATERAL CLINICAL INFORMATION: Chondrocostal junction syndrome. COMPARISON: Chest x-ray 05/31/2019 TECHNIQUE: A frontal radiograph of the chest and 4 views of the bilateral ribs were acquired. FINDINGS: Lungs are clear. No consolidation, pneumothorax, or pleural effusion. The cardiomediastinal silhouette and pulmonary vasculature are normal. There is a healed fracture of the right ninth posterolateral rib. The remainder of the osseous structures are intact. Degenerative changes are present in the dorsal spine and postsurgical changes are evident in the lower cervical spine. XR/XR ribs BI min 4V w CXR1V IMPRESSION: 1. Healed fracture of the right posterior lateral ninth rib. 2. No active cardiopulmonary disease. 3. Degenerative changes in the dorsal spine and postsurgical changes in the cervical spine.
== END 2021-10-13 09:04 | disposition home or self-care (01) ==
LOC: HO.XRAY 09:03
PROVIDERS: PCP Nurse Practitioner Acute Care; Visit Provider Nurse Practitioner Acute Care
DX: M94.0 Chondrocostal junction syndrome [Tietze] (principal)
CPT/HCPCS: 71111

== ENCOUNTER 2022-03-06 10:46 | Outpatient (REF) | payer MEDICARE, MEDICAID, SELFPAY ==
--- NOTE | ~2022-03-06 | XR_ITS ---
EXAMINATION: XR SHOULDER, LEFT CLINICAL INFORMATION: M25.512 - Pain in left shoulder COMPARISON: None TECHNIQUE: Left shoulder is imaged in 4 views. FINDINGS: No fracture, dislocation, or destructive process. The glenohumeral joint appears normal. The acromioclavicular alignment is normal. There are degenerative changes acromioclavicular joint with some mineralization in the superior joint capsular structures. No erosive change. No visible rotator cuff calcifications. XR/XR shoulder LT min 2V IMPRESSION: -Degenerative changes acromioclavicular joint. -Glenohumeral joint unremarkable. No visible rotator cuff calcifications.
== END 2022-03-06 10:47 | disposition home or self-care (01) ==
LOC: HO.XRAY 10:46
PROVIDERS: PCP Internal Medicine; Visit Provider Internal Medicine
DX: M25.512 Pain in left shoulder (principal)
CPT/HCPCS: 73030

== ENCOUNTER → 2022-04-04 13:41 | Outpatient (BNVA) | payer MEDICARE, MEDICAID, SELFPAY | PROVIDERS: PCP Internal Medicine; Visit Provider Anesthesiology | DX: C90.01 Multiple myeloma in remission (principal); M54.50 Low back pain, unspecified; M96.1 Postlaminectomy syndrome, not elsewhere classified; G89.4 Chronic pain syndrome; M54.2 Cervicalgia; M47.816 Spondylosis without myelopathy or radiculopathy, lumbar region | CPT/HCPCS: 99202 ==

== ENCOUNTER 2022-05-01 21:40 | Emergency (ER) | payer MEDICARE, MEDICAID, SELFPAY ==
[2022-05-01 21:47] VITALS: BP 133/85; PULSE 80; RESP 18; TEMP 36.4; O2SAT 96; BMI 20.6
== END 2022-05-02 00:43 | disposition left against medical advice (07) ==
PROVIDERS: Emergency Provider Emergency Medicine; PCP Internal Medicine
DX: M54.50 Low back pain, unspecified (principal)
CPT/HCPCS: 99281

== ENCOUNTER 2022-05-25 10:35 | Day surgery (SDC) | payer MEDICARE, MEDICAID, SELFPAY ==
--- NOTE | 2022-05-24 10:21 | P.CONAN_ITS ---
Documented by User: Parul Rothman NP 05/24/22 10:30 HPI - Anesthesia Eval Consult details Narrative: 61yo M for Bilateral Diagnostic Lumar Medial Branch Block L3-L4-DR L5 Hx of multiple myeloma, repeat bone marrow bx in December shows no sign of disease. PMFSH Active Problems Active Problems: All Active Problems (Updated 04/04/22 @ 15:27 by Wolfgang Garibay MD) Gout (Acute) Spondylosis of lumbar region without myelopathy or radiculopathy (Acute) Chronic pain syndrome (Acute) Postlaminectomy syndrome, lumbar (Acute) Multiple myeloma in remission (Acute) Left shoulder pain (Acute) Nicotine dependence (Acute) Anxiety (Acute) Severe lumbar pain (Acute) Allergic rhinitis (Acute) Cervical pain (neck) (Acute) Severe chronic rhinitis (Acute) Costal chondritis (Acute) Persistent insomnia (Acute) Vitamin D deficiency (Acute) Encounter to establish care (Acute) Rheumatoid arthritis (Acute) Multiple myeloma (Acute) Generalized anxiety disorder (Acute) GERD (gastroesophageal reflux disease) (Acute) Disc degeneration, lumbosacral (Acute) Hypercholesterolemia (Acute) Migraines (Acute) Depression (Acute) Sciatica associated with disorder of lumbar spine (Acute) Past Medical History Medical History Depression Disc degeneration, lumbosacral Generalized anxiety disorder GERD (gastroesophageal reflux disease) Gout Hypercholesterolemia Migraines Multiple myeloma Rheumatoid arthritis Family History Family History Mother Diabetes mellitus Father Stroke Surgical History Surgical History History of cataract surgery History of esophageal surgery History of lumbar laminectomy for spinal cord decompression History of surgery on right wrist Social History Social History Housing: Apartment Alcohol intake: never Patient Tobacco Use Status: Current everyday Tobacco user Tobacco use type: Cigarette Cigarettes Per Day: 10 Years Smoked: 30 Smoked in Last 30 Days: Yes e-Cigarette/Vaping Use: Never Used Second Hand Smoke Exposure: No Use of substances other than those prescribed or required for medical reasons: No Are you DNR?: No Advance Directives: No Advance Directives Information Provided: Yes service: No Current occupational status: disabled Cognitive needs: No Hearing needs: No Vision needs: Yes (pt had eye surg. so he doesnt need glasses) Meds Allergies Allergy/AdvReac Type Severity Reaction Status Date / Time oxycodone [From PERCOCET] Allergy Unknown RASH Verified 05/22/22 14:25 Home Medications Medication Instructions Recorded Confirmed Last Taken Type acetaminophen 650 mg 650 mg PO Q12H PRN Pain 02/22/22 05/22/22 Unknown History tablet,extended release (Mapap Arthritis Pain) quetiapine 100 mg tablet 100 - 200 mg PO BEDTIME PRN anxiety 02/22/22 05/22/22 Unknown History sertraline 100 mg tablet (Zoloft) 1.5 tab PO DAILY 05/22/22 05/22/22 Unknown History Exam Exam Date and Time: May 24, 2022 1021 Pertinent Lab Results Pertinent Lab Results: Laboratory Tests 09/25/21 09/25/21 11:32 11:32 WBC 6.5 Hgb 14.8 Hct 46.1 Plt Count 239 Sodium 142 Potassium 4.4 Chloride 106 Carbon Dioxide 29 BUN 15 Creatinine 0.81 Labs at outside facility 12/2021 CBC and WNL Assessment and Plan Assessment Anesthesia Assessment: Chart Reviewed Documented by User: Chad Starr MD 05/25/22 13:12 [facility] Past Medical History Medical History Depression Disc degeneration, lumbosacral Generalized anxiety disorder GERD (gastroesophageal reflux disease) Gout Hypercholesterolemia Migraines Multiple myeloma Rheumatoid arthritis Family History Family History Mother Diabetes mellitus Father Stroke Family history of problems with anesthesia: No Surgical History Surgical History History of cataract surgery History of esophageal surgery History of lumbar laminectomy for spinal cord decompression History of surgery on right wrist History of Problems with Anesthesia: No Social History Social History Housing: Apartment Alcohol intake: never Patient Tobacco Use Status: Current everyday Tobacco user Tobacco use type: Cigarette Cigarettes Per Day: 10 Years Smoked: 30 Smoked in Last 30 Days: Yes e-Cigarette/Vaping Use: Never Used Second Hand Smoke Exposure: No Use of substances other than those prescribed or required for medical reasons: No Are you DNR?: No Advance Directives: No Advance Directives Information Provided: Yes service: No Current occupational status: disabled Cognitive needs: No Hearing needs: No Vision needs: Yes (pt had eye surg. so he doesnt need glasses) Meds Allergies Allergy/AdvReac Type Severity Reaction Status Date / Time oxycodone [From PERCOCET] Allergy Unknown RASH Verified 05/22/22 14:25 Home Medications Medication Instructions Recorded Confirmed Last Taken Type acetaminophen 650 mg 650 mg PO Q12H PRN Pain 02/22/22 05/22/22 Unknown History tablet,extended release (Mapap Arthritis Pain) quetiapine 100 mg tablet 100 - 200 mg PO BEDTIME PRN anxiety 02/22/22 05/22/22 Unknown History sertraline 100 mg tablet (Zoloft) 1.5 tab PO DAILY 05/22/22 05/22/22 Unknown History Exam Airway Mallampati Class: I TM Dist: >3cm Neck ROM: Full Loose/Missing/Broken Teeth: Yes and Upper (Rrr) Heart: rrr Lungs: clear Assessment and Plan Final Anesthetic Review Family History of Problems with Anesthesia: No History of Problems with Anesthesia: No NPO: Yes ASA Class: III Final Preanesthetic Review: No Changes in Pt Med Stat, Meds/Allgs Chart Reviewed, Consent Obtained/Reviewed and Anes Risks/Benef Reviewed Patient Risk: Intermediate Procedure Risk: Low Anesthetic Plan Anesthetic Plan: MAC: Disposition: Standard PACU
--- NOTE | ~2022-05-25 | FL_ITS ---
EXAMINATION: XR FLUOROSCOPY WITH IMAGES CLINICAL INFORMATION: Diagnostic Lumbar Medial Branch Block COMPARISON: CT abdomen and pelvis 02/14/2021 TECHNIQUE: Fluoroscopy performed by Dr. Wolfgang Garibay. Fluoroscopy time: 0.6 minutes. Cumulative Dose: 4.90 mGy. DAP: 1.33 Gy-cm2. Images: 7. FINDINGS: There are spinal needles overlying the bilateral outer L3, L4, and L5 neural foramen. There is contrast seen in the respective nerve sheaths. Some early transforaminal epidural extension is suggested. No visible vascular communication. There are degenerative disc changes lumbar spine with variable disc narrowing and vertebral spurring. FL/FL guidance in OR IMPRESSION: Fluoroscopy for pain management procedures.
--- NOTE | 2022-05-25 07:52 | MHC.SHP ---
Pre-Procedural Eval Section A Date of Service: 05/25/22 The patient is an INPATIENT: No Changes since office visit: Yes Patient answered all questions The History & Physical has been completed within 30 days and I have reviewed it.: No Section B Chief Complaint: Spondylosis without myelopathy or radiculopathy, Details of Present Illness: as above Relevant Family History (Specify if Yes): No Relevant Social History: None Present Medications: see Short Stay Collaborative assessment Medical History: No relevant PMH History of Previous Operations: Relevant previous surgery/procedure and date(s) Allergies: Allergies Allergy/AdvReac Type Severity Reaction Status Date / Time oxycodone [From PERCOCET] Allergy Unknown RASH Verified 05/22/22 14:25 Review of Systems Sugical H&P ROS: Negative: Constitution, Cardiovascular, Respiratory, Neurological, Psychiatric, Hem-Onc, Allergic/Immunologic, Gastrointestinal, Genitourinary, Musculoskeletal, Integumentary, Endocrine and Eyes/Ears/Nose/Throat Exam Surgical H&P Exam: Normal: HEENT, Normal: Heart, Normal: Lungs, Normal: Extremities, Normal: Abdomen, Normal: Skin and Normal: Neurological Plan Diagnosis/Plan: Unchanged I have reviewed the history and physical and performed a pertinent physical examination on my patient. No changes have occurred unless specified.
[2022-05-25 11:43] VITALS: BMI 20.6
[2022-05-25 11:49] VITALS: BP 121/74; PULSE 63; RESP 16; TEMP 36.7; O2SAT 99
[2022-05-25] MEDS: Lactated Ringers 1,000 ML 100 ML IVCONT (12:04)
--- NOTE | 2022-05-25 13:49 | PM.OP ---
Brief Operative Note Date of Service: 05/25/22 Pre-op diagnosis: spondylosis lumbar without myelopathy or radiculopathy Post-op diagnosis: same Procedure: Diagnostic MBB L3- L4 -DRL5 bilateral Surgeon: Wolfgang Garibay MD Anesthesia: MAC Was an Public [employer] Commissioner used for this Procedure?: No Estimated blood loss (mL): 1 Pathology: none sent Condition: stable Disposition: PACU
[2022-05-25 13:52] VITALS: BP 104/64; PULSE 78; RESP 16; TEMP 36.6; O2SAT 96
--- NOTE | 2022-05-25 13:52 | P.OP_ITS ---
Operative Note Operative Note Date of Service: 05/25/22 Narrative: diagnostic bilateral medial branch block L3-L4 does ramus L5. After explaining informed consent of the patient he was taking to the operating room where she was positioned prone rupture thickening able. [employer] [place] [employer] monitors were applied and the patient was deeply sedated. Time-out was performed delineating the name and date of of the patient site and side of the procedure risk inherited to procedure and Operating room. The lower back of the patient was Prepped with ChloraPrep and draped with utility drapes. C-arm was brought over the operating field and square picture o
[2022-05-25 14:08] VITALS: BP 125/83; PULSE 62; RESP 16; TEMP 36.6; O2SAT 100
== END 2022-05-25 14:35 | disposition home or self-care (01) ==
PROVIDERS: PCP Internal Medicine; Visit Provider Anesthesiology
PROC: (CPT 64493; principal; 2022-05-25 12:10)
DX: M47.816 Spondylosis without myelopathy or radiculopathy, lumbar region (principal); M54.50 Low back pain, unspecified; M96.1 Postlaminectomy syndrome, not elsewhere classified; G89.4 Chronic pain syndrome; M54.2 Cervicalgia; M79.605 Pain in left leg; M79.604 Pain in right leg; F32.A Depression, unspecified; F41.1 Generalized anxiety disorder; C90.01 Multiple myeloma in remission; M06.9 Rheumatoid arthritis, unspecified; E78.00 Pure hypercholesterolemia, unspecified; G43.909 Migraine, unspecified, not intractable, without status migrainosus; Z79.899 Other long term (current) drug therapy; Z88.8 Allergy status to other drugs, medicaments and biological substances; F17.210 Nicotine dependence, cigarettes, uncomplicated
CPT/HCPCS: 64493; 64494; J2250; J2795; J3300

== ENCOUNTER → 2022-05-28 10:42 | Outpatient (BNVA) | payer MEDICARE, MEDICAID, SELFPAY | PROVIDERS: PCP Internal Medicine; Visit Provider Anesthesiology | DX: C90.01 Multiple myeloma in remission (principal); M54.50 Low back pain, unspecified; M96.1 Postlaminectomy syndrome, not elsewhere classified; G89.4 Chronic pain syndrome; M54.2 Cervicalgia; M47.816 Spondylosis without myelopathy or radiculopathy, lumbar region | CPT/HCPCS: 99212 ==

== ENCOUNTER 2022-06-04 14:00 | Outpatient (RCR) | payer MEDICARE, MEDICAID, SELFPAY ==
--- NOTE | 2022-05-18 13:53 | MHC.PT.EP ---
[facility] [place] [facility] [place] [facility] [place] Office [address] [phone] F: [phone] F: [phone] F: [phone] F: [phone] Physical Therapy Plan of Care Date of Evaluation: Date of Surgery: NA Diagnosis: Pain in L shoulder Assessment: Robert is a 61 year old male who is referred to PT for pain in L shoulder . He reports of having pain in B shoulder, neck and L UE for the last 2 years. He denies any trauma or fall however states that his pain has gotten worse with time. On PT examination he presents with TTP over B UT, B levator scap, cervical spine, B AC joint and R shoulder joint line, 9/10 pain at rest which gets worse activities, decreased shoulder ROM, decreased shoulder and scap muscle strength, and altered posture. Due to these impairments he has pain with ADLs and takes longer to complete them. He would benefit from skilled PT to address the aforementioned impairments and improve tolerance to functional activities. Frequency and Duration: The patient will be seen 2/week for 6 weeks Short Term Goals: 1. Pt will have 50% decrease in pain which will enable him to sleep through the night and wake up with a pain no more than 5/10 in 2 weeks. 2. Pt will be able to move shoulder through all planes of motion with a pain no more than 3/10 which will enable him to dress his upper body in 3 weeks. Nursing Home Goals: 1. Pt will demonstrate an increase in shoulder and scap muscle strength by 1 grade which will enable him to reach without pain in 5 weeks. 2. Pt will be independent with HEP for symptom management and maintenance following d/c in 6 weeks. Treatment Plan: Modalities to reduce pain, spasms and effusion. Manual therapy to restore motion and function. Therapeutic exercise to improve strength and flexibility. Neuromuscular re-education for posture and balance. Therapeutic activities to return to functional activities of daily living. Electronically signed by: Colleen Keller PT DPT Please sign and return to therapist. Thank you for your referral.
--- NOTE | 2022-06-18 08:35 | MHC.PT.DC ---
[facility] [place] Office [place] Office [place] Office [address] Cheyanne Maradiaga [address] [facility] [phone] F: [phone] F: [phone] F: [phone] F: [phone] Physical Therapy Discharge Report Diagnosis: Pain in L shoulder Date of Surgery: NA Date of Evaluation: 05/18/22 Date of Discharge: 06/18/22 Treatments to Date: 5 Cancellations to Date: 0 No Shows to Date: Discharge Status: Patient Elected to Stop Discharge Summary: Robert wilson/jose himself from his PT stating his pain has changed and thinks there is a nerve involvement. Electronically signed by: Colleen Keller, PT DPT Please sign and return to therapist. Thank you for your referral.
== END 2022-06-18 08:36 | disposition home or self-care (01) ==
LOC: HO.PT 14:00
PROVIDERS: PCP Internal Medicine; Visit Provider Internal Medicine
DX: M25.512 Pain in left shoulder (principal)
CPT/HCPCS: 97110; 97112; 97161

== ENCOUNTER 2022-11-01 09:31 | Day surgery (SDC) | payer MEDICARE, MEDICAID, SELFPAY ==
--- NOTE | ~2022-11-01 | FL_ITS ---
EXAMINATION: XR FLUOROSCOPY WITH IMAGES CLINICAL INFORMATION: Spinal cord stimulator trial COMPARISON: Chest and rib radiographs 10/13/2021 TECHNIQUE: Fluoroscopy Supervised By: Dr. Wolfgang Garibay. Fluoroscopy Time: 4.9 minutes. Cumulative Dose: 77.7 mGy. DAP: 16.0 Gycm2. Images: 4. FINDINGS: There are 2 spinal stimulator electrodes seen ascending the posterior spinal canal. The electrode tips are at level of mid thoracic spine. There is no visible kinking or defect of the leads. AP view has additional wire-like artifacts presumably gauze pads overlying the patient, not seen on lateral view. There are multilevel degenerative changes thoracic spine again noted and mild wedging mid thoracic vertebrae. FL/FL guidance in OR IMPRESSION: Fluoroscopy for pain management procedure.
--- NOTE | 2022-11-01 08:35 | MHC.SHP ---
Pre-Procedural Eval Section A Date of Service: 11/01/22 The patient is an INPATIENT: No Changes since office visit: Yes Patient answered all questions The History & Physical has been completed within 30 days and I have reviewed it.: No Section B Chief Complaint: Postlaminectomy syndrome, Multiple myeloma Details of Present Illness: As above Relevant Family History (Specify if Yes): No Relevant Social History: None Present Medications: see Short Stay Collaborative assessment Medical History: Significant History (Multiple myeloma) History of Previous Operations: Relevant previous surgery/procedure and date(s) Allergies: Allergies Allergy/AdvReac Type Severity Reaction Status Date / Time oxycodone [From PERCOCET] Allergy Unknown RASH Verified 10/22/22 09:24 gabapentin AdvReac Mild inadequate Verified 10/22/22 09:24 response meloxicam AdvReac Mild inadequate Verified 10/22/22 09:24 response pregabalin AdvReac Mild inadequate Verified 10/22/22 09:24 response Review of Systems Sugical H&P ROS: Negative: Constitution, Cardiovascular, Respiratory, Neurological, Psychiatric, Hem-Onc, Allergic/Immunologic, Gastrointestinal, Genitourinary, Musculoskeletal, Integumentary, Endocrine and Eyes/Ears/Nose/Throat Exam Surgical H&P Exam: Normal: HEENT, Normal: Heart, Normal: Lungs, Normal: Extremities, Normal: Abdomen, Normal: Skin and Normal: Neurological Exam Comment: Recent mid- September CBC-normal platelets, recent PT/ INR, PTT-normal coagulation profile. Plan Diagnosis/Plan: Unchanged I have reviewed the history and physical and performed a pertinent physical examination on my patient. No changes have occurred unless specified. Time Spent With Patient Time: Total time managing care of this patient today ____ minutes.
[2022-11-01 10:13] VITALS: BMI 23.3
[2022-11-01 10:23] VITALS: BP 102/65; PULSE 58; RESP 16; TEMP 36.5; O2SAT 96
[2022-11-01] MEDS: Lactated Ringers 1,000 ML 50 ML IVCONT (10:44)
--- NOTE | 2022-11-01 11:53 | PC.NURSE ---
PER MD ALEJO DOESNT WANT THE MRSA SCREEN
[2022-11-01 13:30] VITALS: BP 135/81; PULSE 55; RESP 16; TEMP 36.6; O2SAT 99
--- NOTE | 2022-11-01 13:30 | P.CONAN_ITS ---
HPI - Anesthesia Eval Consult details Narrative: 61 M for SCS trial REPLACED BY [facility] Active Problems Active Problems: All Active Problems (Updated 10/29/22 @ 11:49 by Valeria Cason PA-C) Multiple myeloma in remission (Acute) Bilateral carotid artery stenosis (Acute) Pure hypercholesterolemia (Acute) Barretts esophagus (Acute) GERD (gastroesophageal reflux disease) (Acute) SUSAN (obstructive sleep apnea) (Acute) Nicotine dependence, cigarettes, uncomplicated (Acute) Allergic rhinitis (Acute) Gout (Acute) Vitamin D deficiency (Acute) Anxiety (Acute) Mild recurrent major depression (Acute) Persistent insomnia (Acute) Migraines (Acute) Chronic pain syndrome (Acute) Postlaminectomy syndrome, lumbar (Acute) Spondylosis of lumbar region without myelopathy or radiculopathy (Acute) Left shoulder pain (Acute) Cervical pain (neck) (Acute) Hyperhidrosis (Acute) Past Medical History Medical History Anxiety Barretts esophagus Chronic pain syndrome GERD (gastroesophageal reflux disease) Gout Migraines Mild recurrent major depression Multiple myeloma in remission Nicotine dependence, cigarettes, uncomplicated SUSAN (obstructive sleep apnea) Postlaminectomy syndrome, lumbar Pure hypercholesterolemia Family History Family History Mother Diabetes mellitus Father Stroke Family history of problems with anesthesia: No Surgical History Surgical History History of appendectomy (~2012) History of bone marrow biopsy (~12/2021) History of cataract surgery (~01/2021) History of cholecystectomy (~01/2017) History of colonoscopy History of colostomy reversal (~2012) History of endoscopy History of esophageal hernia repair History of fusion of cervical spine (~07/2012) History of lumbar laminectomy for spinal cord decompression (~10/2021) History of surgery on right wrist (~1989) History of tonsillectomy History of Problems with Anesthesia: No Social History Social History Housing: Apartment Alcohol intake: never Patient Tobacco Use Status: Current everyday Tobacco user Tobacco use type: Cigarette Cigarettes Per Day: 10 Years Smoked: 30 e-Cigarette/Vaping Use: Never Used Second Hand Smoke Exposure: No Use of substances other than those prescribed or required for medical reasons: No Are you DNR?: No Advance Directives: No Advance Directives Information Provided: Yes Recently lost weight without trying: Yes How much weight loss: 24-33 pounds Nutrition Risks: No Nutritional Risk service: No Current occupational status: disabled Cognitive needs: No Hearing needs: No Vision needs: Yes (pt had eye surg. so he doesnt need glasses) Meds Allergies Allergy/AdvReac Type Severity Reaction Status Date / Time oxycodone [From PERCOCET] Allergy Intermediate RASH Verified 11/01/22 10:12 Active Medications: Current Medications Lactated Ringer's (Lr) 1,000 mls @ 50 mls/hr IVCONT .Q20H TRINIDAD Last Admin: 11/01/22 10:44 Dose: 50 mls/hr Exam Exam Date and Time: November 01, 2022 1330 Height,Weight and Vital Signs: Height 5 ft 5 in Weight 140 lb Last Vital Signs Temp 98 F 11/01/22 13:30 Pulse 55 11/01/22 13:30 Resp 16 11/01/22 13:30 BP 135/81 11/01/22 13:30 Pulse Ox 99 11/01/22 13:30 O2 Del Method 11/01/22 13:30 Airway Mallampati Class: II TM Dist: >3cm Neck ROM: Full Loose/Missing/Broken Teeth: Yes Assessment and Plan Assessment Anesthesia Assessment: Anesthesia Plan Discussed and Chart Reviewed Final Anesthetic Review Family History of Problems with Anesthesia: No History of Problems with Anesthesia: No NPO: Yes ASA Class: III Final Preanesthetic Review: No Changes in Pt Med Stat, Meds/Allgs Chart Reviewed, Consent Obtained/Reviewed and Anes Risks/Benef Reviewed Patient Risk: Intermediate Procedure Risk: Low Anesthetic Plan Anesthetic Plan: MAC: Disposition: Standard PACU
--- NOTE | 2022-11-01 13:32 | P.BOP_ITS ---
Brief Operative Note Date of Service: 11/01/22 Pre-op diagnosis: postlaminectomy syndrome, lower back pain, multiple myeloma in remission. Post-op diagnosis: same Procedure: Trial of [employer] SCS. Implants: none permanent Surgeon: Wolfgang Garibay MD Anesthesia: MAC Was an Dance Entertainer used for this Procedure?: No Estimated blood loss (mL): 3 Condition: stable Disposition: PACU
--- NOTE | 2022-11-01 13:34 | W.PM.OPN ---
Operative Note Operative Note Date of Service: 11/01/22 Narrative: Robert is a very pleasant 61 y.o. gentleman who came today into the operating room for trial of spinal cord stimulator [employer] for the treatment of postlaminectomy syndromeand pain in the axial spine with radiation into b/l LE secondary to multiple myeloma. Preoperatively patient received cefazolin 2 g approximately 10 minutes before the procedure. After obtaining informed consent the patient was brought to the operating room, HE was positioned prone on operating table, [place] [employer] monitors were applied and the patient was moderately sedated. Time-out was performed delineating correct site, side, the nature of the procedure, patient's allergy, preoperative antibiotic if needed. All operating room staff was participating in OR time-out procedure. Patient's entire back was prepped with Chloraprep twice and draped with full body fenestrated laparoscopy drape. Sterilely draped C-arm was brought over operating field and square picture of the T12-L1 L2 and L3 vertebrae were demonstrated on the screen. Attention FIRST was concentrated on the L1-L2 epidural interspace. The location of the projection of the right pedicle center of the L3 vertebra was found on the skin using C-arm. This location was injected with mixture of lidocaine 2% and ropivaciane 0.5% - 5 cc. After that 11 blade was used to make a marck on the skin. 10 cm 14 gauge introducer epidural needle was inserted through the marck and advanced to L1-L2 epidural interspace. The advancement of the needle was performed on anterior posterior and lateral views. Loss of resistance to air technique were used to locate epidural space., epidural lead was inserted through the needle and it was advanced to top of T7 vertebra projection slightly right to the midline. . After that the location of the projection of the LEFT pedicle center of the L3 vertebra was found on the skin using C-arm. This location was injected with mixture of lidocaine 2% and Marcaine 0.5% 5 cc. After that 11 blade was used to make a marck on the skin. 10 cm 14 gauge introducer epidural needle was inserted through the marck and advanced to L1- L2 epidural interspace. The advancement of the needle was performed on anterior posterior and lateral views. Guitar wire and loss of resistance to air technique were used to locate epidural space. When guitar wire was spread in the epidural fashion, epidural lead was inserted through the needle and advanced to the top of T7 epidural interspace slightly left to the existing electrode. On the lateral view the patient had the leads positioned in the posterior epidural space. Impedance was checked and was satisfactory . at this moment patient was awaken of the epidural leads were connected to the testing wires and trial stimulation was performed. Patient was reporting stimulation corresponding to his low back and b/l lower extremity pain. some adjustment of the epidural leads position was made and we ended up eventually with the left side inserted electrode sitting slightly left of the midline and the right inserted electrode was positioned slightly right to the spinous process. Impedance was checked and it was found to be satisfactory. Posterior lead placement was verified by lateral x-ray The stimulation was found to be corresponding to the patient's pain. The needles were withdrawn, the stylette wires were removed from the epidural leads. The anchoring devices were dislodged on the leads and advanced to the level of the skin. The anchoring devices were sutured with two 0-0 Silk sutures per each anchor to the skin of the patient. The central fixation screw of each anchor was rotated until three clicks were heard. The leads were connected to testing device. Bacitracin ointment was applied to the entrance point of bilateral wires. Sterile dressing was applied to the patient's back. The testing device was also taped to the patient's back. the patient tolerated procedure well he was awaken and taken outside of the operating room to recovery room. he recovered uneventfully.
[2022-11-01 13:45] VITALS: BP 136/76; PULSE 56; RESP 14; O2SAT 100
[2022-11-01 14:00] VITALS: BP 132/76; PULSE 53; RESP 14; TEMP 36.7; O2SAT 99
== END 2022-11-01 14:20 | disposition home or self-care (01) ==
PROVIDERS: PCP Internal Medicine; Visit Provider Anesthesiology
PROC: (CPT 63650; principal; 2022-11-01 11:50)
DX: M96.1 Postlaminectomy syndrome, not elsewhere classified (principal); M47.816 Spondylosis without myelopathy or radiculopathy, lumbar region; M54.50 Low back pain, unspecified; C90.01 Multiple myeloma in remission; G89.4 Chronic pain syndrome; M10.9 Gout, unspecified; G43.909 Migraine, unspecified, not intractable, without status migrainosus; F32.A Depression, unspecified; F41.1 Generalized anxiety disorder; Z88.8 Allergy status to other drugs, medicaments and biological substances; F17.210 Nicotine dependence, cigarettes, uncomplicated; E78.00 Pure hypercholesterolemia, unspecified; M54.2 Cervicalgia
CPT/HCPCS: 63650 ×2; C1713; C1778; J0690; J2795

== ENCOUNTER → 2022-11-07 10:45 | Outpatient (BNVA) | payer MEDICARE, MEDICAID, SELFPAY | PROVIDERS: PCP Internal Medicine; Visit Provider Anesthesiology | DX: C90.01 Multiple myeloma in remission (principal); M54.50 Low back pain, unspecified; M96.1 Postlaminectomy syndrome, not elsewhere classified; M54.2 Cervicalgia; M47.816 Spondylosis without myelopathy or radiculopathy, lumbar region; G89.4 Chronic pain syndrome | CPT/HCPCS: 99212 ==

== ENCOUNTER 2022-11-16 22:00 | Emergency (ER) | payer MEDICARE, MEDICAID, SELFPAY ==
--- NOTE | ~2022-11-16 | XR_ITS ---
EXAMINATION: XR SHOULDER, RIGHT CLINICAL INFORMATION: Injury COMPARISON: None available. TECHNIQUE: Three views of the right shoulder. FINDINGS: No fracture or dislocation. The glenohumeral joint is well aligned. The acromioclavicular joint is intact. Chronic appearing fragmentation. The visualized lung is clear. The visualized ribs are intact. Partially visualized cervical fusion hardware. XR/XR shoulder RT min 2V IMPRESSION: No acute fracture or malalignment.
[2022-11-16 22:04] VITALS: BP 113/72; PULSE 84; RESP 16; TEMP 36.4; O2SAT 95; BMI 23.6
[2022-11-17] MEDS: oxyCODONE HCl Immed Release 5 MG TABLET PO (00:32)
--- NOTE | 2022-11-17 00:39 | ED_ITS ---
HPI - Extremity Problem General Chief complaint: Extremity Injury, Upper Stated complaint: Shoulder inj Time Seen by Provider: 11/16/22 23:24 Source: patient Mode of arrival: ambulatory Limitations: no limitations History of Present Illness HPI Narrative: Patient comes to the emergency room complaining of a right upper arm pain. Patient states that he was at work, lifting something heavy, suddenly he heard a loud pop and since then he has been having trouble moving his arm. Patient states that after the initial injury, he worked for 3 more hours. Got home, pain got worse. Patient states the pain is mostly over the typical area, but the pain radiates towards the elbow and the shoulder Related Data Previous Rx's Medication Instructions Recorded gabapentin 800 mg tablet 800 mg PO TID 30 days #90 tabs 10/08/22 orthopedic mattress #1 ea 10/10/22 pregabalin 75 mg capsule 75 mg PO BID 30 days #60 caps 10/26/22 cephalexin 500 mg capsule 1,000 mg PO Q8H 6 days #36 caps 11/01/22 oxycodone 5 mg tablet 5 mg PO BID PRN pain #7 tabs 11/17/22 Allergies Allergy/AdvReac Type Severity Reaction Status Date / Time oxycodone [From PERCOCET] Allergy Intermediate RASH Verified 11/07/22 11:38 Review of Systems Review of Systems: Constitutional : No Weight loss, No Fever, No Chills, No Night Sweats, No Fatigue, No Malaise ENT/Mouth : No Hearing loss, No Ear Pain, No Nasal Congestion, No Sinus Pain, No Hoarseness, No sore throat, No Rhinorrhea, No Swallowing Difficulty Eyes: No Eye Pain, No Swelling, No Redness, No Foreign Body, No Discharge, No Vision Changes Cardiovascular : No Chest Pain, No SOB, No Dyspnea on Exertion, No Orthopnea, No Edema, No Palpitations Respiratory : No Cough, No Sputum, No Wheezing, No Smoke Exposure, No Dyspnea Gastrointestinal : No Nausea, No Vomiting, No Diarrhea, No Constipation, No abdominal Pain, No Hematochezia, No Melena Genitourinary : no irregular bleeding, No Dysuria, No Urinary Frequency, No Hematuria, No Urinary Incontinence, No Urgency, No Flank Pain, No Urinary Flow Changes, No Hesitancy Musculoskeletal : Complaining of right biceps muscle pain Skin : No Skin Lesions, No rash Neuro : No Weakness, No Numbness, No Paresthesias, No Loss of Consciousness, No Dizziness, No Headache Psych : No Anxiety/Panic, No Depression, No SI/HI/AH/VH, No Social Issues, Heme/Lymph: No Bruising, No Bleeding,No Lymphadenopathy Endocrine : No Polyuria, No Polydipsia, No Temperature Intolerance [facility] Past Medical History Medical History Anxiety Barretts esophagus Chronic pain syndrome GERD (gastroesophageal reflux disease) Gout Migraines Mild recurrent major depression Multiple myeloma in remission Nicotine dependence, cigarettes, uncomplicated SUSAN (obstructive sleep apnea) Postlaminectomy syndrome, lumbar Pure hypercholesterolemia Surgical History History of appendectomy (~2012) History of bone marrow biopsy (~12/2021) History of cataract surgery (~01/2021) History of cholecystectomy (~01/2017) History of colonoscopy History of colostomy reversal (~2012) History of endoscopy History of esophageal hernia repair History of fusion of cervical spine (~07/2012) History of lumbar laminectomy for spinal cord decompression (~10/2021) History of surgery on right wrist (~1989) History of tonsillectomy Family History Family History Mother Diabetes mellitus Father Stroke Social History Social History Housing: Apartment Alcohol intake: never Patient Tobacco Use Status: Current everyday Tobacco user Tobacco use type: Cigarette Cigarettes Per Day: 10 Years Smoked: 30 e-Cigarette/Vaping Use: Never Used Second Hand Smoke Exposure: No Advance Directives: No Advance Directives Information Provided: No service: No Current occupational status: disabled Cognitive needs: No Hearing needs: No Vision needs: Yes (pt had eye surg. so he doesnt need glasses) Physical Exam Vital Signs: Vital Signs: Last Vital Signs Temp 97.6 F 11/16/22 22:04 Pulse 84 11/16/22 22:04 Resp 16 11/16/22 22:04 BP 113/72 11/16/22 22:04 Pulse Ox 95 11/16/22 22:04 O2 Del Method 11/16/22 22:04 BMI result Body Mass Index 23.6 Const: Other: Appearance: Alert. Oriented X3. No acute distress. Eyes: Pupils equal, round and reactive to light. ENT: Pharynx normal. Neck: Normal inspection. Neck supple. No lymph nodes noted. No crepitus CVS: Normal heart rate and rhythm. Pulses normal. Normal S1 and S2 Respiratory: No respiratory distress. Breath sounds normal. No Wheezing. No rales Abdomen: Soft and nontender. No rigidity. No distention. Skin: Skin warm and dry. Normal skin color. Normal skin turgor. Extremities: Patient unable to extend fully the right arm due to pain in the biceps. The right bicipital muscle look contracted. Neuro: Oriented X 3. No motor deficit. No sensory deficit. Moving all extremities. No slurred speech. CN 2 through 12 grossly intact Psych: calm, cooperative, normal affect Course Course Course Narrative: -I discussed the physical exam with the patient, bicipital tendon rupture is suspected. Patient was given p.o. oxycodone, a sling, patient instructed to follow-up with orthopedics. Medications Administered Discontinued Medications Generic Name Dose Route Start Last Admin Trade Name Freq PRN Reason Stop Dose Admin Oxycodone HCl 5 mg 11/17/22 00:26 11/17/22 00:32 Oxycodone Hcl Immed Release 5 Mg Tablet PO 11/17/22 00:27 5 mg ONCE ONE Administration Medical Decision Making Medical Decision Making [facility] Narrative: Patient likely has a bicipital tendon rupture. Differential Diagnosis Differential Diagnoses: The differential diagnosis associated with the presentation includes (Both muscle, bicipital tendon rupture, contusion) Independent Interpretation I performed an independent interpretation of an: Plain X-Ray (Interpretation of x-ray of the shoulder: No acute abnormality, no dislocation or fracture) Radiology Impression Discussion of test interpretation with radiology: I have reviewed the radiologist's reading. Radiologist Impression: No fracture or dislocation. The glenohumeral joint is well aligned. The acromioclavicular joint is intact. Chronic appearing fragmentation. The visualized lung is clear. The visualized ribs are intact. Partially visualized cervical fusion hardware.? XR/XR shoulder RT min 2V IMPRESSION: No acute fracture or malalignment. Discharge Plan Discharge Clinical Impression: Biceps tendon rupture Patient Disposition: Home, Self-Care Instructions: Tendon Rupture (ED) Additional Instructions: Please follow-up with your primary care physician tomorrow. If you have any worsening or new symptoms, please return to the emergency room or call 911 Prescriptions: New oxycodone 5 mg tablet 5 mg PO BID PRN (Reason: pain) Qty: 7 0RF Rx Instructions: Partial Fill upon patient request. No Action gabapentin 800 mg tablet 800 mg PO TID 30 Days Qty: 90 1RF (DME) orthopedic mattress See Rx Instructions .Route .MEDSUPPLY Qty: 1 0RF Rx Instructions: As directed pregabalin 75 mg capsule 75 mg PO BID 30 Days Qty: 60 0RF cephalexin 500 mg capsule 1,000 mg PO Q8H 6 Days Qty: 36 0RF Rx Instructions: take OTC probiotics 25 billion cultures in between the doses of the antibiotics Referrals: Nabeel Hernandez PA-C [[employer] [employer]] - 11/19/22 Stand Alone Forms: Work/School Release
== END 2022-11-17 01:01 | disposition home or self-care (01) ==
PROVIDERS: Emergency Provider Emergency Medicine; PCP Internal Medicine
DX: S46.211A Strain of muscle, fascia and tendon of other parts of biceps, right arm, initial encounter (principal); X50.0XXA Overexertion from strenuous movement or load, initial encounter; F17.210 Nicotine dependence, cigarettes, uncomplicated; Y93.9 Activity, unspecified; Y92.9 Unspecified place or not applicable; Y99.0 Civilian activity done for income or pay
CPT/HCPCS: 73030; 99283

== ENCOUNTER → 2022-11-22 09:56 | Outpatient (BNVA) | payer MEDICARE, SELFPAY | PROVIDERS: PCP Internal Medicine; Visit Provider Physician Assistant | DX: S46.211A Strain of muscle, fascia and tendon of other parts of biceps, right arm, initial encounter (principal) | CPT/HCPCS: 99202 ==

== ENCOUNTER 2022-11-23 08:56 | Day surgery (SDC) | payer MEDICARE, MEDICAID, SELFPAY ==
[2022-11-20 14:55] VITALS: BMI 23.3
--- NOTE | 2022-11-22 10:33 | HO.ANESPROP2 ---
Documented by User: Parul Rothman NP 11/22/22 10:34 HPI - Anesthesia Eval Consult details Narrative: 62yo M for Spinal cord Stimulator Implant PMF Active Problems Active Problems: All Active Problems (Updated 11/18/22 @ 00:01 by Genaro Cuello) Multiple myeloma in remission (Acute) Bilateral carotid artery stenosis (Acute) Pure hypercholesterolemia (Acute) Barretts esophagus (Acute) GERD (gastroesophageal reflux disease) (Acute) SUSAN (obstructive sleep apnea) (Acute) Nicotine dependence, cigarettes, uncomplicated (Acute) Allergic rhinitis (Acute) Gout (Acute) Vitamin D deficiency (Acute) Anxiety (Acute) Mild recurrent major depression (Acute) Persistent insomnia (Acute) Migraines (Acute) Chronic pain syndrome (Acute) Postlaminectomy syndrome, lumbar (Acute) Spondylosis of lumbar region without myelopathy or radiculopathy (Acute) Left shoulder pain (Acute) Cervical pain (neck) (Acute) Hyperhidrosis (Acute) Past Medical History Medical History Anxiety Barretts esophagus Chronic pain syndrome GERD (gastroesophageal reflux disease) Gout Migraines Mild recurrent major depression Multiple myeloma in remission Nicotine dependence, cigarettes, uncomplicated SUSAN (obstructive sleep apnea) Postlaminectomy syndrome, lumbar Pure hypercholesterolemia Family History Family History Mother Diabetes mellitus Father Stroke Family history of problems with anesthesia: No Surgical History Surgical History History of appendectomy (~2012) History of bone marrow biopsy (~12/2021) History of cataract surgery (~01/2021) History of cholecystectomy (~01/2017) History of colonoscopy History of colostomy reversal (~2012) History of endoscopy History of esophageal hernia repair History of fusion of cervical spine (~07/2012) History of lumbar laminectomy for spinal cord decompression (~10/2021) History of surgery on right wrist (~1989) History of tonsillectomy History of Problems with Anesthesia: No Social History Social History Housing: Apartment Alcohol intake: never Patient Tobacco Use Status: Current everyday Tobacco user Tobacco use type: Cigarette Cigarettes Per Day: 7 Years Smoked: 30 e-Cigarette/Vaping Use: Never Used Date Education Initiated: 11/23/22 Second Hand Smoke Exposure: No Use of substances other than those prescribed or required for medical reasons: No Are you DNR?: No Advance Directives: No Advance Directives Information Provided: Yes service: No Current occupational status: disabled Cognitive needs: No Hearing needs: No Vision needs: Yes (pt had eye surg. so he doesnt need glasses) Meds Allergies Allergy/AdvReac Type Severity Reaction Status Date / Time oxycodone [From PERCOCET] Allergy Intermediate RASH Verified 11/22/22 10:25 Exam Exam Date and Time: November 22, 2022 1033 Height,Weight and Vital Signs: Height 5 ft 5 in Weight 63.503 kg Assessment and Plan Assessment Anesthesia Assessment: Chart Reviewed Final Anesthetic Review Family History of Problems with Anesthesia: No History of Problems with Anesthesia: No Documented by User: Liliya Malagon MD 11/23/22 10:16 PMF Past Medical History Medical History Anxiety Barretts esophagus Chronic pain syndrome GERD (gastroesophageal reflux disease) Gout Migraines Mild recurrent major depression Multiple myeloma in remission Nicotine dependence, cigarettes, uncomplicated SUSAN (obstructive sleep apnea) Postlaminectomy syndrome, lumbar Pure hypercholesterolemia Family History Family History Mother Diabetes mellitus Father Stroke Surgical History Surgical History History of appendectomy (~2012) History of bone marrow biopsy (~12/2021) History of cataract surgery (~01/2021) History of cholecystectomy (~01/2017) History of colonoscopy History of colostomy reversal (~2012) History of endoscopy History of esophageal hernia repair History of fusion of cervical spine (~07/2012) History of lumbar laminectomy for spinal cord decompression (~10/2021) History of surgery on right wrist (~1989) History of tonsillectomy Social History Social History Housing: Apartment Alcohol intake: never Patient Tobacco Use Status: Current everyday Tobacco user Tobacco use type: Cigarette Cigarettes Per Day: 7 Years Smoked: 30 e-Cigarette/Vaping Use: Never Used Date Education Initiated: 11/23/22 Second Hand Smoke Exposure: No Use of substances other than those prescribed or required for medical reasons: No Are you DNR?: No Advance Directives: No Advance Directives Information Provided: Yes service: No Current occupational status: disabled Cognitive needs: No Hearing needs: No Vision needs: Yes (pt had eye surg. so he doesnt need glasses) Meds Allergies Allergy/AdvReac Type Severity Reaction Status Date / Time oxycodone [From PERCOCET] Allergy Intermediate RASH Verified 11/22/22 10:25 Exam Airway Mallampati Class: II TM Dist: >3cm Neck ROM: Full Heart: rrr Lungs: cta Assessment and Plan Assessment Anesthesia Assessment: Anesthesia Plan Discussed Final Anesthetic Review NPO: Yes ASA Class: III Final Preanesthetic Review: No Changes in Pt Med Stat, Meds/Allgs Chart Reviewed, Consent Obtained/Reviewed and Anes Risks/Benef Reviewed Patient Risk: Intermediate Procedure Risk: Intermediate Anesthetic Plan Anesthetic Plan: MAC: Disposition: Standard PACU
--- NOTE | ~2022-11-23 | FL_ITS ---
EXAMINATION: XR FLUOROSCOPY WITH IMAGES CLINICAL INFORMATION: Spinal cord stimulator implant. COMPARISON: None available. TECHNIQUE: Fluoroscopy Supervised By: Dr. Wolfgang Garibay. Fluoroscopy Time: 4.2 minutes Cumulative Dose: 52 mGy-cm DAP: 13 uGy-cm2 Images: 5 FINDINGS: Images demonstrate leads projecting over the lower thoracic spinal canal. FL/FL guidance in OR IMPRESSION: Fluoroscopy guidance for spinal cord stimulator implant.
[2022-11-23 09:54] VITALS: BMI 23.6
[2022-11-23 09:57] VITALS: BP 107/58; PULSE 63; RESP 19; TEMP 36.3; O2SAT 97
--- NOTE | 2022-11-23 10:05 | HO.ANESPROP2 ---
HPI - Anesthesia Eval Consult details Narrative: 62 yr old for scs implant PMFSH Active Problems Active Problems: All Active Problems (Updated 11/22/22 @ 10:38 by Norma Ferris) Rupture of right proximal biceps tendon (Acute) Multiple myeloma in remission (Acute) Bilateral carotid artery stenosis (Acute) Pure hypercholesterolemia (Acute) Barretts esophagus (Acute) GERD (gastroesophageal reflux disease) (Acute) SUSAN (obstructive sleep apnea) (Acute) Nicotine dependence, cigarettes, uncomplicated (Acute) Allergic rhinitis (Acute) Gout (Acute) Vitamin D deficiency (Acute) Anxiety (Acute) Mild recurrent major depression (Acute) Persistent insomnia (Acute) Migraines (Acute) Chronic pain syndrome (Acute) Postlaminectomy syndrome, lumbar (Acute) Spondylosis of lumbar region without myelopathy or radiculopathy (Acute) Left shoulder pain (Acute) Cervical pain (neck) (Acute) Hyperhidrosis (Acute) Past Medical History Medical History Anxiety Barretts esophagus Chronic pain syndrome GERD (gastroesophageal reflux disease) Gout Migraines Mild recurrent major depression Multiple myeloma in remission Nicotine dependence, cigarettes, uncomplicated SUSAN (obstructive sleep apnea) Postlaminectomy syndrome, lumbar Pure hypercholesterolemia Family History Family History Mother Diabetes mellitus Father Stroke Family history of problems with anesthesia: No Surgical History Surgical History History of appendectomy (~2012) History of bone marrow biopsy (~12/2021) History of cataract surgery (~01/2021) History of cholecystectomy (~01/2017) History of colonoscopy History of colostomy reversal (~2012) History of endoscopy History of esophageal hernia repair History of fusion of cervical spine (~07/2012) History of lumbar laminectomy for spinal cord decompression (~10/2021) History of surgery on right wrist (~1989) History of tonsillectomy History of Problems with Anesthesia: No Social History Social History Housing: Apartment Alcohol intake: never Patient Tobacco Use Status: Current everyday Tobacco user Tobacco use type: Cigarette Cigarettes Per Day: 7 Years Smoked: 30 e-Cigarette/Vaping Use: Never Used Date Education Initiated: 11/23/22 Second Hand Smoke Exposure: No Use of substances other than those prescribed or required for medical reasons: No Are you DNR?: No Advance Directives: No Advance Directives Information Provided: Yes service: No Current occupational status: disabled Cognitive needs: No Hearing needs: No Vision needs: Yes (pt had eye surg. so he doesnt need glasses) Meds Allergies Allergy/AdvReac Type Severity Reaction Status Date / Time oxycodone [From PERCOCET] Allergy Intermediate RASH Verified 11/22/22 10:25 Active Medications: Current Medications Albuterol Sulfate (Albuterol Sulfate (0.083%) 2.5 Mg/3 Ml Vial.Neb) 2.5 mg INHALE ONCE PRN PRN Reason: Shortness of Breath/Wheezing Lactated Ringer's (Lr) 1,000 mls @ 100 mls/hr IVCONT .Q10H [place] Exam Exam Date and Time: November 23, 2022 1005 Height,Weight and Vital Signs: Height 5 ft 5 in Weight 64.41 kg Last Vital Signs Temp 97.4 F 11/23/22 09:57 Pulse 63 11/23/22 09:57 Resp 19 11/23/22 09:57 BP 107/58 L 11/23/22 09:57 Pulse Ox 97 11/23/22 09:57 O2 Del Method Room Air 11/23/22 09:57 Airway Mallampati Class: II TM Dist: >3cm Neck ROM: Full Heart: nrrr Lungs: cta Assessment and Plan Assessment Anesthesia Assessment: Anesthesia Plan Discussed and Chart Reviewed Final Anesthetic Review Family History of Problems with Anesthesia: No History of Problems with Anesthesia: No NPO: Yes ASA Class: III Final Preanesthetic Review: No Changes in Pt Med Stat, Meds/Allgs Chart Reviewed, Consent Obtained/Reviewed and Anes Risks/Benef Reviewed Patient Risk: Intermediate Procedure Risk: Intermediate Anesthetic Plan Anesthetic Plan: MAC: Disposition: Standard PACU
[2022-11-23] MEDS: Lactated Ringers 1,000 ML 100 ML IVCONT (10:11)
--- NOTE | 2022-11-23 10:55 | P.HPSUR_ITS ---
Pre-Procedural Eval Section A Date of Service: 11/23/22 The patient is an INPATIENT: No Changes since office visit: Yes Patient answered all questions The History & Physical has been completed within 30 days and I have reviewed it.: No Section B Chief Complaint: Multiple myeloma in remission,Chronic pain syndrom Details of Present Illness: as above Relevant Family History (Specify if Yes): No Relevant Social History: None Present Medications: see Short Stay Collaborative assessment Medical History: Significant History History of Previous Operations: No relevant previous surgery Allergies: Allergies Allergy/AdvReac Type Severity Reaction Status Date / Time oxycodone [From PERCOCET] Allergy Intermediate RASH Verified 11/22/22 10:25 Review of Systems Sugical H&P ROS: Negative: Constitution, Cardiovascular, Respiratory, Neurological, Psychiatric, Hem-Onc, Allergic/Immunologic, Gastrointestinal, Genitourinary, Integumentary, Endocrine and Eyes/Ears/Nose/Throat and Yes, Specify: Musculoskeletal (multiple myeloma in remission) Exam Surgical H&P Exam: Normal: HEENT, Normal: Heart, Normal: Lungs, Normal: Ext remities, Normal: Abdomen, Normal: Skin and Normal: Neurological Plan I have reviewed the history and physical and performed a pertinent physical examination on my patient. No changes have occurred unless specified. Time Spent With Patient Time: Total time managing care of this patient today ____ minutes.
--- NOTE | 2022-11-23 11:06 | P.OP_ITS ---
Operative Note Operative Note Date of Service: 11/23/22 Narrative: Robert is a very pleasant 62 y.o male who came today into the operating room for implantation of spinal cord stimulator for the treatment of chronic pain syndrome secondary multiple myeloma. Although his disease is in remission now he is suffering from lower back pain with radiation of the pain in bilateral lower extremities more to the left and less to the right. Preoperatively? patient received ?cefazolin 2 g approximately 30 minutes before the procedure. After obtaining informed consent the patient was brought to the operating room, HE was positioned prone on theOR table, ? [place] [employer] monitors were applied and patient was sedated. ?Time-out was performed delineating correct site, side, the nature of the procedure, patient's allergy, preoperative antibiotic if needed.? All operating room staff was participating in OR time-out procedure. Patient's entire back was prepped with ChloraPrep twice and draped with full body fenestrated drape and ioban film.? Sterilely draped C-arm was brought over operating field and square picture of? T12-L1 and [id number] as were demonstrated on the screen.? The skin was? infiltrated with the mixture of lidocaine 2% and ropivacaine 0.5% in the projection of m L2 and L3? spinouse procesess.?? After that? number 10 Blade scalpel was used to perform strict midline 7 cm? long incision.? the incision was widened and deepened until the pr evertebral fascia was reached. Thorough hemostasis was obtained,? After that attention? was concentrated on the L1-L2 epidural interspace.? The location of the projection of the right pedicle center of the? L3 vertebra was found on the fascia using C-arm.? This location was injected with mixture of lidocaine 2% and Marcaine 0.5% 5 cc.? ? 10 cm 14 gauge? introducer epidural needle was inserted through the prevertebral fascia and advanced to? L1- L2 epidural interspace.? The advancement of the needle was performed on anterior posterior and lateral views.? Guitar wire and loss of resistance technique were used to locate epidural space.? When guitar wire was spread in the epidural fashion, epidural lead was inserted through the needle and it was advanced to the posterior epidural space.The lead was advanced strictly on the midline? approximately to the? top of T8 vertebra in the posterior epidural space. ? After that location of the projection of the LEFT pedicle center of the L3 vertebra was found using C-arm.? This location was injected with mixture of lidocaine 2% and Marcaine 0.5% 5 cc.?10 cm 14 gauge? introducer epidural needle was inserted through the fascia and advanced to L1- L2 epidural interspace.? The advancement of the needle was performed on anterior posterior and lateral views.? Guitar wire and loss of resistance technique were used to locate epidural space.? When guitar wire was spread in the epidural fashion, epidural lead was inserted through the needle and it was advanced to the posterior epidural space.The lead was advanced strictly on the midline? approximately to the?top of T8 vertebra in the posterior epidural space. .?On the lateral view the leads were demonstrated in the posterior epidural space. At this moment the patient was awaken, the cables were connected to the epidural leads and testing was performed. The minor adjustment of the electrodes positions were made based on the tests results until the stimulation pattern was satisfactory and corresponding to the patient's sensation of pain. ? After satisfactory position of the leads were established the needles were withdrawn, the stylette wires were removed from the epidural leads.? The anchoring devices were dislodged on the leads and advanced to the level of the prevertebral fascia.?After that the anchoring devices were sutured to the prevertebral fascia using Tycron 0-0 sutures - 2 sutures per each anchoroing device?. The fixation scews were locked until 3 clicks heard. The wound was irrigated with vancomycin containing saline and packed with the 4x4 soaked with the same saline solution. After that attention was concentrated on the right? upper buttock of the patient ? were the decision was made to implant the battery.? 3 cm below the top of the right iliac crest horizontal incision was made 6.5 cm long using 10 blade scalpel, hemostasis was performed using? electric cautery..? Using sharp and dull dissection pocket for the battery was formed in caudad direction from the incision.? Thorough hemostasis was performed.? After that the? wound pocket was? irrigated with vancomycin containing normal saline and tunneling device was used to connect midline incision and upper buttock incision.? The epidural leads were dislodged from midline incision to the buttock incision through the tunneling device.? After that they were connected to the [employer] battery? and impedance was checked? and found to be satisfactory with all leads connected.? There were no electrodes with low impedance noted.? Anchoring? screws were fixed on the back of the battery.? Tycron of 0- 0 sutures were applied to the superior lateral and superior medial corners of the upper portion of the pocket? wound and after that the anchoring sutures were connected to the anchoring orifices on the battery.? The leads were gathered behind the body of the battery and battery was dislodged into the? subcutaneous pocket wound.? The sutures were tied and? irrigation was repeated.? After that?0-0 Polysorb sutures?were used to close the? both wounds and the 0-2 polisorb sutures were used to apptoximate the level of the skin , [place] were applied to the skin and bacitracin ointment was applied to the staple lines. The sterile dressing comprised of several 4x4 for each wound was affixed to the skin using tegaderm. The patient was transfered supine on the stretcher,? awaken, transferred stable to the PACU.? ?
[2022-11-23 13:30] VITALS: BP 123/71; PULSE 59; RESP 17; TEMP 37; O2SAT 99
[2022-11-23 13:45] VITALS: BP 130/87; PULSE 54; RESP 18; O2SAT 99
--- NOTE | 2022-11-23 13:59 | P.BOP_ITS ---
Brief Operative Note Date of Service: 11/23/22 Pre-op diagnosis: multiple myeloma Post-op diagnosis: same Procedure: implantation of [employer] SCS Implants: 2 epidural 8 contact leads and IPG alpha Surgeon: Wolfgang Garibay MD Anesthesia: MAC Was an Agricultural Education Instructor used for this Procedure?: No Estimated blood loss (mL): 12 Pathology: none sent Condition: stable Disposition: PACU
== END 2022-11-23 14:15 | disposition home or self-care (01) ==
PROVIDERS: PCP Internal Medicine; Visit Provider Anesthesiology
PROC: (CPT 63685; principal; 2022-11-23 10:20)
DX: C90.01 Multiple myeloma in remission (principal); G89.4 Chronic pain syndrome; M96.1 Postlaminectomy syndrome, not elsewhere classified; M47.816 Spondylosis without myelopathy or radiculopathy, lumbar region; M54.50 Low back pain, unspecified; M79.662 Pain in left lower leg; M79.661 Pain in right lower leg; M54.2 Cervicalgia; M10.9 Gout, unspecified; R06.02 Shortness of breath; F41.1 Generalized anxiety disorder; F33.0 Major depressive disorder, recurrent, mild; G43.909 Migraine, unspecified, not intractable, without status migrainosus; G47.33 Obstructive sleep apnea (adult) (pediatric); E78.00 Pure hypercholesterolemia, unspecified; K21.9 Gastro-esophageal reflux disease without esophagitis; K22.70 Barrett's esophagus without dysplasia; Z79.899 Other long term (current) drug therapy; Z88.8 Allergy status to other drugs, medicaments and biological substances; Z79.890 Hormone replacement therapy; F17.210 Nicotine dependence, cigarettes, uncomplicated
CPT/HCPCS: 63685; 63650 ×2; C1713; C1778; C1787; C1820; J0690; J2795; J3370

== ENCOUNTER → 2022-11-29 11:15 | Outpatient (BNVA) | payer MEDICARE, SELFPAY | PROVIDERS: PCP Internal Medicine; Visit Provider Nurse Practitioner Family | DX: Z48.01 Encounter for change or removal of surgical wound dressing (principal); M96.1 Postlaminectomy syndrome, not elsewhere classified; G89.4 Chronic pain syndrome; M54.50 Low back pain, unspecified; M54.2 Cervicalgia; M47.816 Spondylosis without myelopathy or radiculopathy, lumbar region; C90.01 Multiple myeloma in remission; Z96.82 Presence of neurostimulator | CPT/HCPCS: 99212 ==

== ENCOUNTER → 2022-12-06 08:30 | Outpatient (BNVA) | payer MEDICARE, MEDICAID, SELFPAY | PROVIDERS: PCP Internal Medicine; Visit Provider Nurse Practitioner Family | DX: M54.50 Low back pain, unspecified (principal); M96.1 Postlaminectomy syndrome, not elsewhere classified; M54.2 Cervicalgia; M47.816 Spondylosis without myelopathy or radiculopathy, lumbar region; S46.211D Strain of muscle, fascia and tendon of other parts of biceps, right arm, subsequent encounter; C90.01 Multiple myeloma in remission; G89.4 Chronic pain syndrome; Z96.89 Presence of other specified functional implants | CPT/HCPCS: 99212 ==

== ENCOUNTER 2022-12-14 14:05 | Outpatient (REF) | payer MEDICARE, SELFPAY ==
--- NOTE | ~2022-12-14 | CT_ITS ---
EXAMINATION: CT CHEST SCREENING CLINICAL INFORMATION: F17.210 - Nicotine dependence, cigarettes, uncomplicated. Current smoker. 44 pack years. COMPARISON: CT chest noncontrast 05/11/2018, CT abdomen and pelvis with contrast 02/14/2021. TECHNIQUE: Multidetector volumetric CT imaging of the chest is performed without contrast using low dose technique. Additional 2D coronal and sagittal reformatted images and axial 3D maximum intensity projection (MIP) images are generated on the CT workstation. This CT examination was performed using dose optimization techniques as appropriate, variously including the following: *Automated exposure control *Adjustment of mA and/or kV according to patient size (this includes techniques or standardized protocols for targeted exams where dose is matched to indication/reason for exam; i.e. extremities or head) *Use of iterative reconstruction technique DLP: 59.0 mGy-cm FINDINGS: LUNGS: Central airways are clear and there is no endobronchial lesion or bronchiectasis. No airspace consolidation or groundglass opacity. No mass or nodule. There is linear stranding adjacent to the lower left cardiac border consistent with areolar tissue. MEDIASTINUM: Heart size normal. No pericardial effusion. Thoracic aorta normal in caliber. No hilar or mediastinal adenopathy. CORONARY ARTERY CALCIFICATION: Present. PLEURA: There is no pleural effusion. No pleural mass or thickening. AXILLA: No lymphadenopathy. UPPER ABDOMEN: Left upper pole cyst water attenuation for each view 5 x 6 cm, prior measurement 4.5 x 5.1 cm 2018. No significant change in exophytic left upper pole hyperdense hemorrhagic cyst 1.9 cm, 85 HU on non-contrast exam (2018: 1.4 cm and 81 HU). No additional imaging follow-up recommended. OSSEOUS STRUCTURES: No acute bony abnormality. Spinal stimulator leads present mid thoracic region. Fusion hardware cervical spine. CT/CT lung screening IMPRESSION: -No pulmonary mass, nodule, or adenopathy. ASSESSMENT: Lung-RADS category 1: Negative RECOMMENDATION: Routine annual low-dose CT screening in 12 months.
== END 2022-12-14 14:06 | disposition home or self-care (01) ==
LOC: HO.CT 14:05
PROVIDERS: PCP Internal Medicine; Visit Provider Physician Assistant Medical
DX: Z12.2 Encounter for screening for malignant neoplasm of respiratory organs (principal); F17.210 Nicotine dependence, cigarettes, uncomplicated
CPT/HCPCS: 71271; G0296

== ENCOUNTER → 2022-12-19 11:23 | Outpatient (BNVA) | payer MEDICARE, SELFPAY | PROVIDERS: PCP Internal Medicine; Visit Provider Anesthesiology | DX: M96.1 Postlaminectomy syndrome, not elsewhere classified (principal); M47.816 Spondylosis without myelopathy or radiculopathy, lumbar region; M54.2 Cervicalgia; G89.4 Chronic pain syndrome; C90.01 Multiple myeloma in remission | CPT/HCPCS: 99212 ==

== ENCOUNTER → 2022-12-31 15:27 | Outpatient (BNVA) | payer MEDICARE, MEDICAID, SELFPAY | PROVIDERS: PCP Internal Medicine; Visit Provider Anesthesiology | DX: M54.50 Low back pain, unspecified (principal); M54.2 Cervicalgia; M47.816 Spondylosis without myelopathy or radiculopathy, lumbar region; M96.1 Postlaminectomy syndrome, not elsewhere classified; G06.1 Intraspinal abscess and granuloma; G89.4 Chronic pain syndrome; C90.01 Multiple myeloma in remission | CPT/HCPCS: 99212 ==

== ENCOUNTER 2023-01-01 14:19 | Outpatient (REF) | payer MEDICARE, MEDICAID, SELFPAY ==
--- NOTE | ~2023-01-01 | CT_ITS ---
EXAMINATION: CT THORACIC SPINE CLINICAL INFORMATION: CT imaging of thoracic spine requested for evaluation of intraspinal abscess and granuloma. COMPARISON: Noncontrast lung cancer screening chest CT from 12/14/2022. TECHNIQUE: Multidetector CT imaging examination of the thoracic spine performed with intravenous administration of 85 mL Omnipaque 350. This CT examination was performed using dose optimization techniques as appropriate, variously including the following: *Automated exposure control *Adjustment of mA and/or kV according to patient size (this includes techniques or standardized protocols for targeted exams where dose is matched to indication/reason for exam; i.e. extremities or head) *Use of iterative reconstruction technique DLP: 432 mGy-cm FINDINGS: Streak artifact is produced by the C4-C7 anterior fusion hardware. Also, there are spinal electrodes that enter the posterior canal at L1-L2 and ascend along the posterior canal, electrodes located at T7/T8 level. Thoracic vertebra have well preserved height and alignment. No fracture or subluxation. No erosions at vertebral endplates. No suspicious lytic or osteoblastic lesion. There is skeletal hyperostosis with bulky multilevel anterior ligament ossification of the thoracic spine. The paraspinal muscles have normal attenuation. No paraspinal fluid collection or abscess. Also, no evidence of epidural abscess. No evidence of thoracic disc herniation. No thoracic spinal canal stenosis. Mild centrilobular and paraseptal emphysema. The lungs are partially included in [id number]-[id number] and were more thoroughly evaluated on the recent chest CT of 12/14/2022. No pleural effusion. No acute findings in the visualized portion of the mediastinum. There is three-vessel coronary artery atherosclerotic calcification. Thyroid gland is unremarkable. Small hiatal hernia is noted. 3.9 cm simple cyst of the upper pole of the left kidney is partially included in the [id number]. No renal imaging follow-up is recommended for a simple cyst. 2 cm proteinaceous cyst of the left kidney is partially included in the doluc-ce-ydad. No renal imaging follow-up recommended. CT/CT thoracic spine w IV con IMPRESSION: No acute abnormalities in the thoracic spine compared to 12/14/2022. No evidence of discitis, osteomyelitis or spinal abscess.
[2023-01-01 14:54] LABS: Anion Gap 9 (12-20); Blood Urea Nitrogen 17 mg/dL (9-16); Calcium 9.6 mg/dL (8.4-10.2); Carbon Dioxide 30 mmol/L (22-29); Chloride 107 mmol/L (96-108); Estimated Glomerular Filt Rate > 60; Glucose Random 105 mg/dL (60-115); Potassium 4.1 mmol/L (3.3-5.1); Sodium 142 mmol/L (135-145)
[2023-01-01] MEDS: iohexoL 350 MG/ML 100 ML INFUS..BTL IV (16:39)
== END 2023-01-01 14:20 | disposition home or self-care (01) ==
LOC: HO.CT 14:19
PROVIDERS: PCP Internal Medicine; Visit Provider Anesthesiology
DX: C90.01 Multiple myeloma in remission (principal); G06.1 Intraspinal abscess and granuloma
CPT/HCPCS: 36415; 72129; 80048; Q9967

== ENCOUNTER → 2023-01-02 12:04 | Outpatient (BNVA) | payer MEDICARE, SELFPAY | PROVIDERS: PCP Internal Medicine; Visit Provider Anesthesiology | DX: G89.4 Chronic pain syndrome (principal); M96.1 Postlaminectomy syndrome, not elsewhere classified; M47.816 Spondylosis without myelopathy or radiculopathy, lumbar region; M54.50 Low back pain, unspecified; M54.2 Cervicalgia; G06.1 Intraspinal abscess and granuloma; C90.01 Multiple myeloma in remission | CPT/HCPCS: 99212 ==

== ENCOUNTER → 2023-01-04 08:52 | Outpatient (BNVA) | payer MEDICARE, MEDICAID, SELFPAY | PROVIDERS: PCP Internal Medicine; Visit Provider Physician Assistant | DX: S46.211D Strain of muscle, fascia and tendon of other parts of biceps, right arm, subsequent encounter (principal) | CPT/HCPCS: 99212 ==

== ENCOUNTER → 2023-01-30 14:26 | Outpatient (BNVA) | payer MEDICARE, MEDICAID, SELFPAY | PROVIDERS: PCP Internal Medicine; Visit Provider Anesthesiology | DX: G89.4 Chronic pain syndrome (principal); M96.1 Postlaminectomy syndrome, not elsewhere classified; M47.816 Spondylosis without myelopathy or radiculopathy, lumbar region; M54.2 Cervicalgia; M54.50 Low back pain, unspecified; G06.1 Intraspinal abscess and granuloma; C90.01 Multiple myeloma in remission | CPT/HCPCS: 99212 ==

== ENCOUNTER 2023-11-27 13:01 | Outpatient (AMB) | payer OTHER, MEDICAID, SELFPAY ==
--- NOTE | 2023-11-27 16:05 | MHC.OFFVIS ---
Intake Vital Signs 11/27/23 16:11 Height 5 ft 5 in Weight 140 lb BMI 23.3 BP 138/82 Blood Pressure Location Lt brachial Position Sitting Respiration 16 Pulse 95 Pulse Source Pulse Oximeter Pulse Oximetry (%) 97 Oxygen Delivery Method Room Air Intake Visit Reasons: Increasing Pain Intake Note: Patient comes in for increasing pain. Allergies oxycodone [From PERCOCET] Allergy (Intermediate, Verified 11/27/23 16:08) RASH HPI HPI Comments History of Present Illness Details Robert is here in my office after 1 year of absence. He reported continuous moderate improvement of the bilateral lower extremities pain after the adjustment he received from [facility] in 2022. However recently he stated that his pain in bilateral lower extremities starting to get worse. At the same time he reports severe widespread pain all over the body with pain in the cervical area/cervical spine pain in bilateral shoulders as well as stiffness of bilateral hands in the morning. He was told by his PCP that he is most likely suffering from gout however he does not remember if any confirmatory studies were ordered for him. He also reports numbness and bilateral tingling in bilateral upper extremities, weakness and awkwardness of bilateral upper extremities including hands. He requests me to send him for MRI of the cervical spine. The patient is claustrophobic. I would have to send him to open MRI at [facility]. Abdirahman from [employer] was working today on the patient's device. He explained to the patient the best way to charge the device. He also adjusted the stimulation the way patient feels good stimulation in bilateral lower extremities. The patient reported more acceptable level of pain after session with the [employer] motor vehicle field representative. In the past she received [employer] SCS and he reported good coverage on the left and less substantial coverage on the right. Third electrode insertion was offered to the patient however now it is on the background because I might need in the future those 2 outlets in his battery which are vacant to use for the cervical spine stimulation in the future. Prior: 61 years old gentleman who presents in my office with complains on lower back pain with radiation into bilateral lower extremities. He reports severity of the pain 9/10 He reports that pain starts in the lower back and radiates on the posterior surfaces of bilateral lower legs to the level of the lower ankles. Does not report radiation of the pain into the feet. He reports that he has problem started and 8 months ago. H This patient reports that he cannot go to MRI because of his anxiety however referral note from Dr. Walton office consists of multiple referrals to the MRIs in the past. He was subject of the epidural steroid injections in the past 1 in the neck and 1 in the back. Reports that none of the epidural steroid injections were helpful for him. He reports that he had surgery with Dr. Parrish which was related to lumbar spinal stenosis of the says surgery actually aggravated his pain and did not help his pain at all. His past medical history is very extensive, he has headaches he is suffering from migraines he has shortness of breath the history of pancreatitis he was suffering from gout arthritis however never received treatment for gout and he is under observational oncologist with multiple myeloma since 2008 therefore he has a cancer patient. Reports that his multiple myeloma at this time is stable per he smokes cigarettes half a pack a day for many years. [facility] Medical History Anxiety Barretts esophagus Chronic pain syndrome GERD (gastroesophageal reflux disease) Gout Migraines Mild recurrent major depression Multiple myeloma in remission Nicotine dependence, cigarettes, uncomplicated SUSAN (obstructive sleep apnea) Postlaminectomy syndrome, lumbar Pure hypercholesterolemia Surgical History History of appendectomy (~2012) History of bone marrow biopsy (~12/2021) History of cataract surgery (~01/2021) History of cholecystectomy (~01/2017) History of colonoscopy History of colostomy reversal (~2012) History of endoscopy History of esophageal hernia repair History of fusion of cervical spine (~07/2012) History of lumbar laminectomy for spinal cord decompression (~10/2021) History of surgery on right wrist (~1989) History of tonsillectomy Family History Mother Diabetes mellitus Father Stroke Social History Housing: Apartment Alcohol intake: never Patient Tobacco Use Status: Current everyday Tobacco user Tobacco use type: Cigarette Cigarettes Per Day: 7 Years Smoked: (onset 23yo, x 39yrs, max 2ppd, mainly 1ppd, now 1/2ppd - 40pyh) e-Cigarette/Vaping Use: Never Used Second Hand Smoke Exposure: No service: No Current occupational status: disabled Cognitive needs: No Hearing needs: No Vision needs: Yes (pt had eye surg. so he doesnt need glasses) Review of Systems Const All systems reviewed & are unremarkable except as noted in HPI and below ENT Reports Normal hearing present Neuro Reports Normal hearing present, Denies Abnormal speech present, Denies confusion and Denies Sensory deficit (Neuro) Psych Denies confusion Physical Exam Vital Signs: Last Vital Signs Pulse 95 11/27/23 16:11 Resp 16 11/27/23 16:11 BP 138/82 11/27/23 16:11 Pulse Ox 97 11/27/23 16:11 Oxygen Delivery Method Room Air 11/27/23 16:11 BMI result Body Mass Index 23.3 Const General: No confusion Nutritional Appearance: average body habitus Orientation/consciousness: No confusion Limitations: no limitations Eyes General: appearance normal, both eyes and all related structures Pupils: Equal, round and reactive pupils present EOM: EOMs intact bilaterally Neck Neck: Yes full ROM Chest Chest palpation & inspection: normal inspection of the chest Resp Effort & Inspection: normal respiratory effort, able to speak in complete sentences, normal respiratory pattern, no audible wheezes and no cough Cardio Jugular venous distension: no JVD GI Inspection: Yes normal to inspection Back/Spine/Pelvis Other: Able to stand on bilateral tiptoes in bilateral feet without difficulties. Able to stand on heels without difficulty. tenderness on percussion and palpation of spinous processes T8 through T11. Unable to take a deep breath. Neuro General: No confusion Cranial nerves: Yes Equal, round and reactive pupils present and Yes Normal hearing present Speech: No Abnormal speech present Gait exam (Neuro): Normal gait present Motor exam (neuro): 5/5 motor strength present throughout Sensory Exam: No Sensory deficit (Neuro) Extrem General: No pedal edema Results Reviewed Results Reviewed: EXAMINATION: CT THORACIC SPINE 01/01/2023 CLINICAL INFORMATION: CT imaging of thoracic spine requested for evaluation of intraspinal abscess and granuloma.? COMPARISON: Noncontrast lung cancer screening chest CT from 12/14/2022.? ? FINDINGS: Streak artifact is produced by the C4-C7 anterior fusion hardware. Also, there are spinal electrodes that enter the posterior canal at L1-L2 and ascend along the posterior canal, electrodes located at T7/T8 level. Thoracic vertebra have well preserved height and alignment. No fracture or subluxation. No erosions at vertebral endplates. No suspicious lytic or osteoblastic lesion. There is skeletal hyperostosis with bulky multilevel anterior ligament ossification of the thoracic spine. The paraspinal muscles have normal attenuation. No paraspinal fluid collection or abscess. Also, no evidence of epidural abscess.? No evidence of thoracic disc herniation. No thoracic spinal canal stenosis.? Mild centrilobular and paraseptal emphysema. The lungs are partially included in [id number]-ec-[id number] and were more thoroughly evaluated on the recent chest CT of 12/14/2022. No pleural effusion. No acute findings in the visualized portion of the mediastinum. There is three-vessel coronary artery atherosclerotic calcification. Thyroid gland is unremarkable. Small hiatal hernia is noted. 3.9 cm simple cyst of the upper pole of the left kidney is partially included in the uqgpy-ib-swhx. No renal imaging follow-up is recommended for a simple cyst. 2 cm proteinaceous cyst of the left kidney is partially included in the fwrat-hl-iswf. No renal imaging follow-up recommended. Impression: No acute abnormalities in the thoracic spine compared to 12/14/2022. No evidence of discitis, osteomyelitis or spinal abscess. 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) Code(s): C90.01 - Multiple myeloma in remission (4) Severe lumbar pain: Code(s): M54.50 - Low back pain, unspecified (5) Postlaminectomy syndrome, lumbar: Code(s): M96.1 - Postlaminectomy syndrome, not elsewhere classified (6) Chronic pain syndrome: Code(s): G89.4 - Chronic pain syndrome (7) Cervical pain (neck): Code(s): M54.2 - Cervicalgia (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 In 2022 he had complaints on pain in the right lower extremity while good pain relieve on the left lower extremity by action of the spinal cord stimulator. Unfortunately the procedure was performed to treat the left-sided pain. However [employer] SCS motor vehicle field representative was able today to spread the stimulation bilaterally. At the same time today he complains on widespread pain and stiffness in bilateral upper hands. He complains on pain in the neck. He is multiple myeloma patient although in remission. Rheumatoid arthritis versus gout arthritis come to my mind to explain widespread pain in morning stiffness of the hands. I will refer him to Rheumatology. He requests me to send him to MRI of the cervical spine. I will send him to [facility] for open MRI because he has claustrophobia. At the same time he can not go for 3 [facility] MRI because of the [employer] SCS. He needs to make sure that the devices fully charged before going to the MRI machine. If open MRI at [facility] is more than 1.5 [place] we need to find another facility with open MRI and appropriate power level. Orders: Orders MR cervical spine wo con Today C90.01 - Multiple myeloma in remission, M50.20 - Other cervical disc displacement, unspecified cervical region, M50.30 - Other cervical disc degeneration, unspecified cervical region Referrals Rheumatology Referral M06.9 - Rheumatoid arthritis, unspecified, M10.9 - Gout, unspecified Patient Instructions: I here by testify that I spent 45 minutes in conversation with this patient as well as planning his care evaluating his prior records and organizing this note. 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
[2023-11-27 16:11] VITALS: BP 138/82; PULSE 95; RESP 16; O2SAT 97; BMI 23.3
== END 2023-11-27 13:41 | disposition home or self-care (01) ==
PROVIDERS: PCP Internal Medicine; Visit Provider Anesthesiology
DX: M06.9 Rheumatoid arthritis, unspecified (principal); M10.9 Gout, unspecified; C90.01 Multiple myeloma in remission; M54.50 Low back pain, unspecified; M96.1 Postlaminectomy syndrome, not elsewhere classified; G89.4 Chronic pain syndrome; M54.2 Cervicalgia; M47.816 Spondylosis without myelopathy or radiculopathy, lumbar region; M50.20 Other cervical disc displacement, unspecified cervical region; M50.30 Other cervical disc degeneration, unspecified cervical region
CPT/HCPCS: 99215

== ENCOUNTER → 2023-11-27 13:01 | Outpatient (BNVA) | payer OTHER, MEDICAID, SELFPAY | PROVIDERS: PCP Internal Medicine; Visit Provider Anesthesiology | DX: M06.9 Rheumatoid arthritis, unspecified (principal); M50.30 Other cervical disc degeneration, unspecified cervical region; M47.816 Spondylosis without myelopathy or radiculopathy, lumbar region; M54.50 Low back pain, unspecified; G89.4 Chronic pain syndrome; M96.1 Postlaminectomy syndrome, not elsewhere classified; M10.9 Gout, unspecified; C90.01 Multiple myeloma in remission | CPT/HCPCS: 99212 ==

== ENCOUNTER 2023-12-11 08:42 | Outpatient (AMB) | payer OTHER, MEDICAID, SELFPAY ==
--- NOTE | 2023-12-11 08:52 | A.OFFVIS_ITS ---
Intake Vital Signs 12/11/23 09:24 Height 5 ft 5 in Weight 127 lb 4 oz BMI 21.2 BP 122/66 Blood Pressure Location Lt brachial Position Sitting Respiration 16 Pulse 71 Pulse Source Pulse Oximeter Pulse Oximetry (%) 99 Oxygen Delivery Method Room Air Intake Visit Reasons: OPIOID CONTRACT Intake Note: Patient comes in to discuss opioid contract. Reports 01/09. Allergies oxycodone [From PERCOCET] Allergy (Intermediate, Verified 12/11/23 09:24) RASH HPI HPI Comments History of Present Illness Details Robert is here in my office to sign opioid contract. Prolonged and very difficult conversation was held with the patient. He had multiple questions to ask. I explained to him opioid consent, opioid contract, opioid information page. He appears to be interested in Belbuca. I will prescribe him Belbuca 75 micro g b.i.d. after his admits his UDS and UDS will be ready. I will see him 1st time in this office 2 weeks after prescription. I will continue to see him once in 2 months while on Belbuca. We will see if he has no side effects. Adherence to dental hygiene was explained to him. Careful explanation was given to him about side effects and complications of chronic opioid therapy. As of the MRI of the cervical spine the only place where he canhave this procedure to be done is actually in [facility]. He told me that he will look for another facility closer to his home here in [facility], but if he will not find appropriate place he will go there Javed king reported continuous moderate improvement of the bilateral lower extremities pain after the adjustment he received from [employer] in 2022. However recently he stated that his pain in bilateral lower extremities starting to get worse. At the same time he reports severe widespread pain all over the body with pain in the cervical area/cervical spine pain in bilateral shoulders as well as stiffness of bilateral hands in the morning. He was told by his PCP that he is most likely suffering from gout however he does not remember if any confirmatory studies were ordered for him. He also reports numbness and bilateral tingling in bilateral upper extremities, weakness and awkwardness of bilateral upper extremities including hands. He requests me to send him for MRI of the cervical spine. The patient is claustrophobic. I would have to send him to open MRI at [facility]. In the past she received [employer] and he reported good coverage on the left and less substantial coverage on the right. Third electrode insertion was offered to the patient however now it is on the background because I might need in the future those 2 outlets in his battery which are vacant to use for the cervical spine stimulation in the future. Prior: 61 years old gentleman who presents in my office with complains on lower back pain with radiation into bilateral lower extremities. He reports severity of the pain 10 He reports that pain starts in the lower back and radiates on the posterior surfaces of bilateral lower legs to the level of the lower ankles. Does not report radiation of the pain into the feet. He reports that he has problem started and 8 months ago. H This patient reports that he cannot go to MRI because of his anxiety however referral note from Dr. Walton office consists of multiple referrals to the MRIs in the past. He was subject of the epidural steroid injections in the past 1 in the neck and 1 in the back. Reports that none of the epidural steroid injections were helpful for him. He reports that he had surgery with Dr. Parrish which was related to lumbar spinal stenosis of the says surgery actually aggravated his pain and did not help his pain at all. His past medical history is very extensive, he has headaches he is suffering from migraines he has shortness of breath the history of pancreatitis he was suffering from gout arthritis however never received treatment for gout and he is under observational oncologist with multiple myeloma since 2008 therefore he has a cancer patient. Reports that his multiple myeloma at this time is stable per he smokes cigarettes half a pack a day for many years. [facility] Medical History Anxiety Barretts esophagus Chronic pain syndrome GERD (gastroesophageal reflux disease) Gout Migraines Mild recurrent major depression Multiple myeloma in remission Nicotine dependence, cigarettes, uncomplicated SUSAN (obstructive sleep apnea) Postlaminectomy syndrome, lumbar Pure hypercholesterolemia Surgical History History of appendectomy (~2012) History of bone marrow biopsy (~12/2021) History of cataract surgery (~01/2021) History of cholecystectomy (~01/2017) History of colonoscopy History of colostomy reversal (~2012) History of endoscopy History of esophageal hernia repair History of fusion of cervical spine (~07/2012) History of lumbar laminectomy for spinal cord decompression (~10/2021) History of surgery on right wrist (~1989) History of tonsillectomy Family History Mother Diabetes mellitus Father Stroke Social History Housing: Apartment Alcohol intake: never Patient Tobacco Use Status: Current everyday Tobacco user Tobacco use type: Cigarette Cigarettes Per Day: 7 Years Smoked: (onset 23yo, x 39yrs, max 2ppd, mainly 1ppd, now 1/2ppd - 40pyh) e-Cigarette/Vaping Use: Never Used Second Hand Smoke Exposure: No service: No Current occupational status: disabled Cognitive needs: No Hearing needs: No Vision needs: Yes (pt had eye surg. so he doesnt need glasses) Review of Systems Const All systems reviewed & are unremarkable except as noted in HPI and below ENT Reports Normal hearing present Neuro Reports Normal hearing present, Denies Abnormal speech present, Denies confusion and Denies Sensory deficit (Neuro) Psych Denies confusion Physical Exam Vital Signs: Last Vital Signs Pulse 71 12/11/23 09:24 Resp 16 12/11/23 09:24 BP 122/66 12/11/23 09:24 Pulse Ox 99 12/11/23 09:24 Oxygen Delivery Method Room Air 12/11/23 09:24 BMI result Body Mass Index 21.2 Const General: No confusion Nutritional Appearance: average body habitus Orientation/consciousness: No confusion Limitations: no limitations Eyes General: appearance normal, both eyes and all related structures Pupils: Equal, round and reactive pupils present EOM: EOMs intact bilaterally Neck Neck: Yes full ROM Chest Chest palpation & inspection: normal inspection of the chest Resp Effort & Inspection: normal respiratory effort, able to speak in complete sentences, normal respiratory pattern, no audible wheezes and no cough Cardio Jugular venous distension: no JVD GI Inspection: Yes normal to inspection Back/Spine/Pelvis Other: Able to stand on bilateral tiptoes in bilateral feet without difficulties. Able to stand on heels without difficulty. tenderness on percussion and palpation of spinous processes T8 through T11. Unable to take a deep breath. Neuro General: No confusion Cranial nerves: Yes Equal, round and reactive pupils present and Yes Normal hearing present Speech: No Abnormal speech present Gait exam (Neuro): Normal gait present Motor exam (neuro): 5/5 motor strength present throughout Sensory Exam: No Sensory deficit (Neuro) Extrem General: No pedal edema Results Reviewed Results Reviewed: EXAMINATION: CT THORACIC SPINE 01/01/2023 CLINICAL INFORMATION: CT imaging of thoracic spine requested for evaluation of intraspinal abscess and granuloma.? COMPARISON: Noncontrast lung cancer screening chest CT from 12/14/2022.? ? FINDINGS: Streak artifact is produced by the C4-C7 anterior fusion hardware. Also, there are spinal electrodes that enter the posterior canal at L1-L2 and ascend along the posterior canal, electrodes located at T7/T8 level. Thoracic vertebra have well preserved height and alignment. No fracture or subluxation. No erosions at vertebral endplates. No suspicious lytic or osteoblastic lesion. There is skeletal hyperostosis with bulky multilevel anterior ligament ossification of the thoracic spine. The paraspinal muscles have normal attenuation. No paraspinal fluid collection or abscess. Also, no evidence of epidural abscess.? No evidence of thoracic disc herniation. No thoracic spinal canal stenosis.? Mild centrilobular and paraseptal emphysema. The lungs are partially included in [id number] and were more thoroughly evaluated on the recent chest CT of 12/14/2022. No pleural effusion. No acute findings in the visualized portion of the mediastinum. There is three-vessel coronary artery atherosclerotic calcification. Thyroid gland is unremarkable. Small hiatal hernia is noted. 3.9 cm simple cyst of the upper pole of the left kidney is partially included in the [id number]. No renal imaging follow-up is recommended for a simple cyst. 2 cm proteinaceous cyst of the left kidney is partially included in the [id number]. No renal imaging follow-up recommended. Impression: No acute abnormalities in the thoracic spine compared to 12/14/2022. No evidence of discitis, osteomyelitis or spinal abscess. 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) Code(s): C90.01 - Multiple myeloma in remission (4) Severe lumbar pain: Code(s): M54.50 - Low back pain, unspecified (5) Postlaminectomy syndrome, lumbar: Code(s): M96.1 - Postlaminectomy syndrome, not elsewhere classified (6) Chronic pain syndrome: Code(s): G89.4 - Chronic pain syndrome (7) Cervical pain (neck): Code(s): M54.2 - Cervicalgia (8) Spondylosis of lumbar region without myelopathy or radiculopathy: Code(s): M47.816 - Spondylosis without myelopathy or radiculopathy, lumbar region (9) 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 In 2022 he had complaints on pain in the right lower extremity while good pain relieve on the left lower extremity by action of the spinal cord stimulator. At the same time today he complains on widespread pain and stiffness in bilateral upper hands. He complains on pain in the neck. He is multiple myeloma patient although in remission. Rheumatoid arthritis versus gout arthritis come to my mind to explain widespread pain in morning stiffness of the hands. I will refer him to Rheumatology. He came today for opioid contract initiation. See description above. I will start him on Belbuca 75 micro g b.i.d. as soon as UDS is ready. Appointment after the prescription in 2 weeks. He requests me to send him to MRI of the cervical spine. He wants open MRI because he has claustrophobia. Local facility at [facility] does not have appropriate MRI for me and him. He needs to travel to [facility] to get the procedure done at [facility] facility. He stated today that he will look for facility nearby, if he will not be able to find it he will travel to the address provided to him. Patient Instructions: I here by testify that I spent 55 minutes in conversation with this patient as well as evaluating his prior records, evaluating his prior diagnostic studies, organizing his note and planning his future care. 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
[2023-12-11 09:24] VITALS: BP 122/66; PULSE 71; RESP 16; O2SAT 99; BMI 21.2
== END 2023-12-11 09:55 | disposition home or self-care (01) ==
PROVIDERS: PCP Internal Medicine; Visit Provider Anesthesiology
DX: M06.9 Rheumatoid arthritis, unspecified (principal); M10.9 Gout, unspecified; C90.01 Multiple myeloma in remission; M54.50 Low back pain, unspecified; M96.1 Postlaminectomy syndrome, not elsewhere classified; G89.4 Chronic pain syndrome; M54.2 Cervicalgia; M47.816 Spondylosis without myelopathy or radiculopathy, lumbar region; M50.20 Other cervical disc displacement, unspecified cervical region; M50.30 Other cervical disc degeneration, unspecified cervical region
CPT/HCPCS: 99215

== ENCOUNTER → 2023-12-11 08:42 | Outpatient (BNVA) | payer OTHER, MEDICAID, SELFPAY | PROVIDERS: PCP Internal Medicine; Visit Provider Anesthesiology | DX: M06.9 Rheumatoid arthritis, unspecified (principal); M10.9 Gout, unspecified; M54.50 Low back pain, unspecified; M96.1 Postlaminectomy syndrome, not elsewhere classified; M54.2 Cervicalgia; M47.816 Spondylosis without myelopathy or radiculopathy, lumbar region; M50.20 Other cervical disc displacement, unspecified cervical region; M50.30 Other cervical disc degeneration, unspecified cervical region; C90.01 Multiple myeloma in remission; G89.4 Chronic pain syndrome | CPT/HCPCS: 99212 ==

== ENCOUNTER 2023-12-18 10:06 | Outpatient (AMB) | payer OTHER, MEDICAID, SELFPAY ==
[2023-12-18 10:11] VITALS: BP 124/70; PULSE 73; O2SAT 98; BMI 20.5
--- NOTE | 2023-12-18 10:11 | MHC.OFFVIS ---
Intake Vital Signs 12/18/23 10:11 Height 5 ft 5 in Weight 123 lb 0.287 oz BMI 20.5 BP 124/70 Blood Pressure Location Rt brachial Position Sitting Pulse 73 Pulse Source Pulse Oximeter Pulse Oximetry (%) 98 Oxygen Delivery Method Room Air Intake Visit Reasons: RA/CM Intake Note: New pt presents today for RA consult, internally referred by pain mgmt. Lots of nerve pain from neck down to arms. MRI recommended pt is claustrophobic States pain mgmt could find big machine so he was referred here. Reports gout bl hand pain, xrays done at [facility]. Constantly dropping things [employer] Re[employer] Operator Required: No Accompanied by: Self / Same As Patient Allergies oxycodone [From PERCOCET] Allergy (Intermediate, Verified 12/18/23 10:15) RASH Medication List - Last Reconciled 12/18/23 by Yoni Hough MD cyclobenzaprine 5 mg PO TID PRN duloxetine 60 mg PO DAILY gabapentin 800 mg PO TID glycopyrrolate 1 mg PO BID mirtazapine 15 mg PO BEDTIME pregabalin 75 mg PO BID 30 days tamsulosin mg PO DAILY trazodone 150 mg PO BEDTIME HPI HPI Comments History of Present Illness Details This is a 63-year-old male who presents for evaluation of bilateral hand pain and stiffness. He was evaluated before by Dr. Hernandez in 2019 and no evidence of an autoimmune rheumatic disease was found. States that he gets bilateral hand pain and swelling intermittently. Most severe is the left 3rd and 4th fingers. States that he had an x-ray and was told that he has some kind of pseudogout he states that he is constantly dropping things. He is s/p carpal tunnel release left hand a while ago and it did not help and he did not pursue it for the right hand. He denies any history of kidney stones. He is unaware of any family history of an autoimmune rheumatic disease [facility] Medical History SUSAN (obstructive sleep apnea) Barretts esophagus Nicotine dependence, cigarettes, uncomplicated Pure hypercholesterolemia Mild recurrent major depression Gout Chronic pain syndrome Postlaminectomy syndrome, lumbar Multiple myeloma in remission Anxiety Migraines GERD (gastroesophageal reflux disease) Surgical History History of esophageal hernia repair History of colonoscopy History of fusion of cervical spine (~07/2012) History of colostomy reversal (~2012) History of endoscopy History of tonsillectomy History of cholecystectomy (~01/2017) History of appendectomy (~2012) History of bone marrow biopsy (~12/2021) History of lumbar laminectomy for spinal cord decompression (~10/2021) History of cataract surgery (~01/2021) History of surgery on right wrist (~1989) Family History Mother Diabetes mellitus Father Stroke Social History Housing: Apartment Alcohol intake: never Patient Tobacco Use Status: Current everyday Tobacco user Tobacco use type: Cigarette Cigarettes Per Day: 7 Years Smoked: (onset 23yo, x 39yrs, max 2ppd, mainly 1ppd, now 1/2ppd - 40pyh) e-Cigarette/Vaping Use: Never Used Second Hand Smoke Exposure: No service: No Current occupational status: disabled Cognitive needs: No Hearing needs: No Vision needs: Yes (pt had eye surg. so he doesnt need glasses) Review of Systems Const Reports fatigue, Denies fever(s), Reports weakness and Reports weight loss Eyes Reports dry eyes and Reports itchy eyes ENT Reports dry mouth, Reports hearing loss and Reports hoarseness Musc Reports arthralgias and Reports stiffness Skin/Breast Reports unusual bruising Neuro Reports Sensory deficit (Neuro) and Reports weakness Psych Reports abnormal sleep pattern, Reports anxiety and Reports depression Endo Reports fatigue Aller/Immun Reports itchy eyes Physical Exam Vital Signs: Last Vital Signs Pulse 73 12/18/23 10:11 BP 124/70 12/18/23 10:11 Pulse Ox 98 12/18/23 10:11 Oxygen Delivery Method Room Air 12/18/23 10:11 BMI result Body Mass Index 20.5 Const General: cooperative, healthy appearing and comfortable Nutritional Appearance: thin Orientation/consciousness: patient oriented x3 Limitations: no limitations HEENT Head: Yes normocephalic and Yes atraumatic Mouth: moist mucous membranes Resp Effort & Inspection: normal respiratory effort and able to speak in complete sentences Skin General skin exam: no rashes or lesions noted Neuro General: patient oriented x3 Sensory Exam: Sensory deficit (Neuro) Extrem Other: Significant osteoarthritic changes of both hands with no active synovitis Prominent Heberden's and Dion's nodes 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 On exam he has prominent osteoarthritis of both hands. Per patient he was told that his x-rays showed pseudogout I reviewed patient's bilateral hand x-rays from 2019 which showed chondrocalcinosis which is a sign of generalized osteoarthritis as well as pseudogout. Patient does not give a clear history suggestive of pseudogout. Previous serologies and inflammatory markers were normal. Referred patient to occupational therapy. Patient can consider evaluation by hand surgeon Discussed symptoms and signs that are suggestive of pseudogout and patient can return as needed Plan I spent 29 minutes reviewing patient's chart, evaluating patient, placing orders,, counseling patient and documenting in the chart Orders: Orders OT Evaluation and Treatment Today M19.041 - Primary osteoarthritis, right hand, M19.042 - Primary osteoarthritis, left hand Coding Level of Care Code New Pt Level 3 (32991) Diagnoses Primary osteoarthritis of both hands M19.041; M19.042 Osteoarthritis type: primary
== END 2023-12-18 10:51 | disposition home or self-care (01) ==
PROVIDERS: PCP Internal Medicine; Visit Provider Student in an Organized Health Care Education/Training Program
DX: M19.041 Primary osteoarthritis, right hand (principal); M19.042 Primary osteoarthritis, left hand
CPT/HCPCS: 99203

== ENCOUNTER → 2023-12-18 10:06 | Outpatient (BNVA) | payer OTHER, MEDICAID, SELFPAY | PROVIDERS: PCP Internal Medicine; Visit Provider Student in an Organized Health Care Education/Training Program | DX: M19.041 Primary osteoarthritis, right hand (principal); M19.042 Primary osteoarthritis, left hand; F40.240 Claustrophobia | CPT/HCPCS: 99202 ==

== ENCOUNTER 2024-01-06 08:12 | Outpatient (AMB) | payer OTHER, SELFPAY ==
--- NOTE | 2024-01-06 08:38 | A.OFFVIS_ITS ---
Vital Signs 01/06/24 08:43 Height 5 ft 5 in Weight 123 lb BMI 20.5 BP 132/76 Blood Pressure Location Lt brachial Position Sitting Respiration 16 Pulse 66 Pulse Source Pulse Oximeter Pulse Oximetry (%) 98 Oxygen Delivery Method Room Air Intake Visit Reasons: risk assessment/ uds results Intake Note: Patient comes in for follow up. Reports pain 04/11. Allergies oxycodone [From PERCOCET] Allergy (Intermediate, Verified 01/06/24 08:43) RASH HPI Comments Details: Robert is here in my office to sign opioid contract. We performed Opioid Assessment addiction risk today as well as PHQ score. He is total score is 32 and therefore it is elevated, his risk of addiction is severe. I explained to him that Belbuca or tramadol, maybe even tapentadol the only medications we will be able to prescribe him. I explained to him that straight forward me opioid agonists such as morphine and hydrocodone hydromorphone would be a poor choice for him. Also we discussed his cannabis consumption. [place] is a legal state for cannabis consumption therefore the only requirement for him I would have is that when he purchase cannabis a dispensary to provide me a receipt if his UDS will be scheduled. Again prolonged conversation was held with the patient. We decided that I will start him on Belbuca 75 micro g b.i.d. for 1 month only and see how this will or will not affect his pain and more importantly to see if he has any side effects of the medication. I explained to him about dental hygiene with this medication. I also explained to him about side effects of this medications other than dental issues. I explained to him the nature of opioid therapy. I explained to him that we possibly can gently escalate medication Belbuca if he has no side effects of the medication. As of the MRI of the cervical spine the only place where he can have this procedure to be done is actually in [facility]. He told me that he will look for another facility closer to his home here in [facility], but if he will not find appropriate place he will go there Javed king reported continuous moderate improvement of the bilateral lower extremities pain after the adjustment he received from [employer] in 2022. However recently he stated that his pain in bilateral lower extremities starting to get worse. At the same time he reports severe widespread pain all over the body with pain in the cervical area/cervical spine pain in bilateral shoulders as well as stiffness of bilateral hands in the morning. He was told by his PCP that he is most likely suffering from gout however he does not remember if any confirmatory studies were ordered for him. He also reports numbness and bilateral tingling in bilateral upper extremities, weakness and awkwardness of bilateral upper extremities including hands. He requests me to send him for MRI of the cervical spine. The patient is claustrophobic. I would have to send him to open MRI at [facility]. In the past she received [employer] SCS and he reported good coverage on the left and less substantial coverage on the right. Third electrode insertion was offered to the patient however now it is on the background because I might need in the future those 2 outlets in his battery which are vacant to use for the cervical spine stimulation in the future. Prior: 61 years old gentleman who presents in my office with complains on lower back pain with radiation into bilateral lower extremities. He reports severity of the pain 9/10 He reports that pain starts in the lower back and radiates on the posterior surfaces of bilateral lower legs to the level of the lower ankles. Does not report radiation of the pain into the feet. He reports that he has problem started and 8 months ago. H This patient reports that he cannot go to MRI because of his anxiety however referral note from Dr. Walton office consists of multiple referrals to the MRIs in the past. He was subject of the epidural steroid injections in the past 1 in the neck and 1 in the back. Reports that none of the epidural steroid injections were helpful for him. He reports that he had surgery with Dr. Parrish which was related to lumbar spinal stenosis of the says surgery actually aggravated his pain and did not help his pain at all. His past medical history is very extensive, he has headaches he is suffering from migraines he has shortness of breath the history of pancreatitis he was suffering from gout arthritis however never received treatment for gout and he is under observational oncologist with multiple myeloma since 2008 therefore he has a cancer patient. Reports that his multiple myeloma at this time is stable per he smokes cigarettes half a pack a day for many years. [facility] Medical History SUSAN (obstructive sleep apnea) Barretts esophagus Nicotine dependence, cigarettes, uncomplicated Pure hypercholesterolemia Mild recurrent major depression Gout Chronic pain syndrome Postlaminectomy syndrome, lumbar Multiple myeloma in remission Anxiety Migraines GERD (gastroesophageal reflux disease) Surgical History History of esophageal hernia repair History of colonoscopy History of fusion of cervical spine (~07/2012) History of colostomy reversal (~2012) History of endoscopy History of tonsillectomy History of cholecystectomy (~01/2017) History of appendectomy (~2012) History of bone marrow biopsy (~12/2021) History of lumbar laminectomy for spinal cord decompression (~10/2021) History of cataract surgery (~01/2021) History of surgery on right wrist (~1989) Family History Mother Diabetes mellitus Father Stroke Social History Housing: Apartment Alcohol intake: never Patient Tobacco Use Status: Current everyday Tobacco user Tobacco use type: Cigarette Cigarettes Per Day: 7 Years Smoked: (onset 23yo, x 39yrs, max 2ppd, mainly 1ppd, now 1/2ppd - 40pyh) e-Cigarette/Vaping Use: Never Used Second Hand Smoke Exposure: No service: No Current occupational status: disabled Cognitive needs: No Hearing needs: No Vision needs: Yes (pt had eye surg. so he doesnt need glasses) Review of Systems Const All systems reviewed & are unremarkable except as noted in HPI and below ENT Reports Normal hearing present Neuro Reports Normal hearing present, Denies Abnormal speech present, Denies confusion and Denies Sensory deficit (Neuro) Psych Denies confusion Physical Exam Vital Signs: Last Vital Signs Pulse 66 01/06/24 08:43 Resp 16 01/06/24 08:43 BP 132/76 01/06/24 08:43 Pulse Ox 98 01/06/24 08:43 Oxygen Delivery Method Room Air 01/06/24 08:43 BMI result Body Mass Index 20.5 Const General: No confusion Nutritional Appearance: average body habitus Orientation/consciousness: No confusion Limitations: no limitations Eyes General: appearance normal, both eyes and all related structures Pupils: Equal, round and reactive pupils present EOM: EOMs intact bilaterally Neck Neck: Yes full ROM Chest Chest palpation & inspection: normal inspection of the chest Resp Effort & Inspection: normal respiratory effort, able to speak in complete sentences, normal respiratory pattern, no audible wheezes and no cough Cardio Jugular venous distension: no JVD GI Inspection: Yes normal to inspection Back/Spine/Pelvis Other: Able to stand on bilateral tiptoes in bilateral feet without difficulties. Able to stand on heels without difficulty. tenderness on percussion and palpation of spinous processes T8 through T11. Unable to take a deep breath. 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) Code(s): C90.01 - Multiple myeloma in remission Category: Medical (4) Severe lumbar pain: Code(s): M54.50 - Low back pain, unspecified Category: Medical (5) Postlaminectomy syndrome, lumbar: Code(s): M96.1 - Postlaminectomy syndrome, not elsewhere classified Category: Medical (6) Chronic pain syndrome: Code(s): G89.4 - Chronic pain syndrome Category: Medical (7) Cervical pain (neck): Code(s): M54.2 - Cervicalgia Category: Medical (8) Spondylosis of lumbar region without myelopathy or radiculopathy: Code(s): M47.816 - Spondylosis without myelopathy or radiculopathy, lumbar region Category: Medical (9) 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 In 2022 he had complaints on pain in the right lower extremity while good pain relieve on the left lower extremity by action of the spinal cord stimulator. At the same time today he complains on widespread pain and stiffness in bilateral upper hands. He complains on pain in the neck. He is multiple myeloma patient although in remission. He went to [facility] and he was diagnosed with degenerative osteoarthritis. He came today for opioid contract initiation. See descriptionabove. I will start him on Belbuca 75 micro g b.i.d. his UDS is ready and negative for illicit substances. His opioid addiction score is elevated to 32 and other opioid medications but Belbuca would not be indicated for him. I might consider Nucynta or tramadol in the future if Belbuca has side effects however I would not be interested in prescribing him regular opioid medications such as hydromorphone, hydrocodone, morphine. All of this was carefully explained to the patient. He expressed understanding. We will see him in 14 days. We will perform film count and we will make a next prescription for 2 months. Medications: New buprenorphine HCl (Belbuca) 75 mcg buccal Q12H 30 days PRN 60 ea 0RF pain MDD 2 films Patient Instructions: I here by testify that I spent 35 minutes in conversation with this patient as well as planning his care and organizing this note. 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
[2024-01-06 08:43] VITALS: BP 132/76; PULSE 66; RESP 16; O2SAT 98; BMI 20.5
== END 2024-01-06 09:28 | disposition home or self-care (01) ==
PROVIDERS: PCP Internal Medicine; Visit Provider Anesthesiology
DX: M06.9 Rheumatoid arthritis, unspecified (principal); M10.9 Gout, unspecified; C90.01 Multiple myeloma in remission; M54.50 Low back pain, unspecified; M96.1 Postlaminectomy syndrome, not elsewhere classified; G89.4 Chronic pain syndrome; M54.2 Cervicalgia; M47.816 Spondylosis without myelopathy or radiculopathy, lumbar region; M50.20 Other cervical disc displacement, unspecified cervical region; M50.30 Other cervical disc degeneration, unspecified cervical region
CPT/HCPCS: 99214

== ENCOUNTER → 2024-01-06 08:12 | Outpatient (BNVA) | payer OTHER, SELFPAY | PROVIDERS: PCP Internal Medicine; Visit Provider Anesthesiology | DX: M06.9 Rheumatoid arthritis, unspecified (principal); M10.9 Gout, unspecified; M54.50 Low back pain, unspecified; M96.1 Postlaminectomy syndrome, not elsewhere classified; M54.2 Cervicalgia; M47.816 Spondylosis without myelopathy or radiculopathy, lumbar region; M50.20 Other cervical disc displacement, unspecified cervical region; M50.30 Other cervical disc degeneration, unspecified cervical region; C90.01 Multiple myeloma in remission; G89.4 Chronic pain syndrome | CPT/HCPCS: 99212 ==

== ENCOUNTER 2024-01-06 14:00 | Outpatient (RCR) | payer OTHER, SELFPAY ==
--- NOTE | 2023-12-25 15:16 | MHC.OT.EP ---
[address] [phone] Occupational Therapy Plan of Care Patient Name: Robert Anguiano Date of Evaluation: 12/25/23 Diagnosis: OA OF B/L HANDS Pain Location: L D3/D4 PIPj > ALL DIGITS 7/10 AT REST 10/10 WITH USE R MF > ALL DIGITS 9/10 AT REST, 10/10 WITH USE Pain Score: 7-10/10 Pain Scale Used: Numeric (0 - 10) Aggravating Factors: LIFTING/ GRABBING AND HOLDING ITEMS Alleviating Factors: HAS TRIED DICLOFENAC WITHOUT SIGNIFICANT IMPROVEMENTS, TYLENOL, GABBAPENTON Assessment: MR ANGUIANO REPORTS ABOUT A ONE YEAR HISTORY OF B/L HAND PAIN AND STIFFNESS. HE HAS OA IN B/L HANDS WITH VISIBLE HERBERDEN NODULES. HE EXPERIENCES DIFFICULTIES WITH ENGAGING IN DAILY ACTIVITIES WITH HIGH PAIN, >7/10. HE STATES HE ENJOYS CLEANING HIS HOME ON A DAILY BASIS YET HAS PAIN. A 100% LIMITATION IS REPORTED PER THE QUICK DASH ASSESSMENT. ONGOING SKILLED OT IS WARRANTED TO ADDRESS PATIENT EDUCATION, INCLUDING JOINT PROTECTION STRATEGIES WELL EXPLORING ADAPTIVE EQUIPMENT AND ADAPTIVE TECHNIQUES. OT WILL ALSO ADDRESS AREAS MENTIONED BELOW TO MAXIMIZE INDEPENDENCE. Frequency and Duration: The patient will be seen 1X/WEEK FOR 6 WEEKS Short Term Goals: IND HEP IND EDEMA MANAGEMENT STRATEGIES Pt TO PRACTICE WITH AE/AT FOR IMPROVING IND WITH ADLs IND JT PROTECTION STRATEGIES/ ACTIVITY MODIFICATIONS IND USE OF HEAT MODALITIES, EXPLORE HOME PARAFFIN UNIT Intermediate Goals: INCREASE B/L HAND STRENGTH ( R 35, L 25 ) POUNDS QUICK DASH <70% REPORT <5/10 PAIN WITH LIFTING >5 POUNDS FOR ADLs/IADLs Treatment Plan: Therapeutic Exercise Therapeutic Activity Home Exercise Program Splinting Neuro Re-ed Patient Education Desensitization/Sensory Re-ed Edema Control ADL Training Ultrasound NMES Iontophoresis Paraffin Fluidotherapy MHP Cold Packs Joint Mobilization Soft Tissue Mobilization Kinesiotaping Other (see comments) Electronically Signed By: BEENA MOSS OTR/L Please Sign and return to therapist. Thank you once again for your referral.
--- NOTE | 2024-01-22 14:20 | MHC.OT.DC ---
[address] [phone] F: [phone] Occupational Therapy Discharge Note Patient Name: Robert Anguiano Provider: Yoni Hough Diagnosis: OA OF B/L HANDS Date of Evaluation: 12/25/23 Date of Discharge: 01/22/24 Treatments to Date: 2 Cancellations to Date: 0 No Shows to Date: 0 Discharge Status: Patient Elected to Stop Discharge Summary: MR ANGUIANO WAS SEEN FOR OA OF B/L HANDS. HE REPORTED RELIEF WITH USE OF HEAT. NO EDEMA WAS NOTED. Pt WISHING TO DISCONTINUE OT SERVICES AFTER TWO SESSIONS. RECOMMEND MD FOLLOW-UP. Electronically Signed By: BEENA MOSS OTR/Valeria Reviewed/agree with student documentation: N/A Therapist: Please Sign and return to therapist, thank you for your referral.
== END 2024-01-22 14:20 | disposition home or self-care (01) ==
LOC: HO.OT 14:00
PROVIDERS: PCP Internal Medicine; Visit Provider Student in an Organized Health Care Education/Training Program
DX: M19.041 Primary osteoarthritis, right hand (principal); M19.042 Primary osteoarthritis, left hand
CPT/HCPCS: 97018; 97110; 97166

== ENCOUNTER 2024-01-23 09:23 | Outpatient (AMB) | payer OTHER, SELFPAY ==
--- NOTE | 2024-01-23 09:42 | MHC.OFFVIS ---
Vital Signs 01/23/24 09:52 Height 5 ft 5 in Weight 122 lb 2 oz BMI 20.3 BP 110/60 Blood Pressure Location Lt brachial Position Sitting Respiration 14 Pulse 70 Pulse Source Pulse Oximeter Pulse Oximetry (%) 99 Oxygen Delivery Method Room Air Intake Visit Reasons: 2 week opioid follow up Intake Note: Patient comes in for two weeks follow up. Reports pain /. Allergies oxycodone [From PERCOCET] Allergy (Intermediate, Verified 01/23/24 09:51) RASH HPI Comments Details: Robert is back in my office to discuss continuation of the opioid contract. He reports that buprenorphine causes blotches on his arms and forearms. He reports no help from buprenorphine. Unfortunately because his total opioid addiction risk score is equal to 32 I will not be able to prescribe him any other opioids. I offered him duloxetine, unfortunately patient reported upset stomach on duloxetine. I discussed with him possibility of in the future prescribing ketamine oral for his pain control provided that our compounding pharmacy will go back online. He will not be prescribed anything today. He will be calling this office and ask if compounding pharmacy will be back online. Then I will be able to prescribe him ketamine pills. Prior: As of the MRI of the cervical spine the only place where he can have this procedure to be done is actually in [facility]. He told me that he will look for another facility closer to his home here in [facility], but if he will not find appropriate place he will go there Javed king reported continuous moderate improvement of the bilateral lower extremities pain after the adjustment he received from [employer] in 2022. However recently he stated that his pain in bilateral lower extremities starting to get worse. At the same time he reports severe widespread pain all over the body with pain in the cervical area/cervical spine pain in bilateral shoulders as well as stiffness of bilateral hands in the morning. He was told by his PCP that he is most likely suffering from gout however he does not remember if any confirmatory studies were ordered for him. He also reports numbness and bilateral tingling in bilateral upper extremities, weakness and awkwardness of bilateral upper extremities including hands. He requests me to send him for MRI of the cervical spine. The patient is claustrophobic. I would have to send him to open MRI at [facility]. In the past she received [employer] SCS and he reported good coverage on the left and less substantial coverage on the right. Third electrode insertion was offered to the patient however now it is on the background because I might need in the future those 2 outlets in his battery which are vacant to use for the cervical spine stimulation in the future. Prior: 61 years old gentleman who presents in my office with complains on lower back pain with radiation into bilateral lower extremities. He reports severity of the pain 9/10 He reports that pain starts in the lower back and radiates on the posterior surfaces of bilateral lower legs to the level of the lower ankles. Does not report radiation of the pain into the feet. He reports that he has problem started and 8 months ago. H This patient reports that he cannot go to MRI because of his anxiety however referral note from Dr. Walton office consists of multiple referrals to the MRIs in the past. He was subject of the epidural steroid injections in the past 1 in the neck and 1 in the back. Reports that none of the epidural steroid injections were helpful for him. He reports that he had surgery with Dr. Parrish which was related to lumbar spinal stenosis of the says surgery actually aggravated his pain and did not help his pain at all. His past medical history is very extensive, he has headaches he is suffering from migraines he has shortness of breath the history of pancreatitis he was suffering from gout arthritis however never received treatment for gout and he is under observational oncologist with multiple myeloma since 2008 therefore he has a cancer patient. Reports that his multiple myeloma at this time is stable per he smokes cigarettes half a pack a day for many years. [facility] Medical History SUSAN (obstructive sleep apnea) Barretts esophagus Nicotine dependence, cigarettes, uncomplicated Pure hypercholesterolemia Mild recurrent major depression Gout Chronic pain syndrome Postlaminectomy syndrome, lumbar Multiple myeloma in remission Anxiety Migraines GERD (gastroesophageal reflux disease) Surgical History History of esophageal hernia repair History of colonoscopy History of fusion of cervical spine (~07/2012) History of colostomy reversal (~2012) History of endoscopy History of tonsillectomy History of cholecystectomy (~01/2017) History of appendectomy (~2012) History of bone marrow biopsy (~12/2021) History of lumbar laminectomy for spinal cord decompression (~10/2021) History of cataract surgery (~01/2021) History of surgery on right wrist (~1989) Family History Mother Diabetes mellitus Father Stroke Social History Housing: Apartment Alcohol intake: never Patient Tobacco Use Status: Current everyday Tobacco user Tobacco use type: Cigarette Cigarettes Per Day: 7 Years Smoked: (onset 23yo, x 39yrs, max 2ppd, mainly 1ppd, now 1/2ppd - 40pyh) e-Cigarette/Vaping Use: Never Used Second Hand Smoke Exposure: No service: No Current occupational status: disabled Cognitive needs: No Hearing needs: No Vision needs: Yes (pt had eye surg. so he doesnt need glasses) Review of Systems Const All systems reviewed & are unremarkable except as noted in HPI and below ENT Reports Normal hearing present Neuro Reports Normal hearing present, Denies Abnormal speech present, Denies confusion and Denies Sensory deficit (Neuro) Psych Denies confusion Physical Exam Vital Signs: Last Vital Signs Pulse 70 01/23/24 09:52 Resp 14 01/23/24 09:52 BP 110/60 01/23/24 09:52 Pulse Ox 99 01/23/24 09:52 Oxygen Delivery Method Room Air 01/23/24 09:52 BMI result Body Mass Index 20.3 Const General: No confusion Nutritional Appearance: average body habitus Orientation/consciousness: No confusion Limitations: no limitations Eyes General: appearance normal, both eyes and all related structures Pupils: Equal, round and reactive pupils present EOM: EOMs intact bilaterally Neck Neck: Yes full ROM Chest Chest palpation & inspection: normal inspection of the chest Resp Effort & Inspection: normal respiratory effort, able to speak in complete sentences, normal respiratory pattern, no audible wheezes and no cough Cardio Jugular venous distension: no JVD GI Inspection: Yes normal to inspection Back/Spine/Pelvis Other: Able to stand on bilateral tiptoes in bilateral feet without difficulties. Able to stand on heels without difficulty. tenderness on percussion and palpation of spinous processes T8 through T11. Unable to take a deep breath. 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) Code(s): C90.01 - Multiple myeloma in remission Category: Medical (4) Severe lumbar pain: Code(s): M54.50 - Low back pain, unspecified Category: Medical (5) Postlaminectomy syndrome, lumbar: Code(s): M96.1 - Postlaminectomy syndrome, not elsewhere classified Category: Medical (6) Chronic pain syndrome: Code(s): G89.4 - Chronic pain syndrome Category: Medical (7) Cervical pain (neck): Code(s): M54.2 - Cervicalgia Category: Medical (8) Spondylosis of lumbar region without myelopathy or radiculopathy: Code(s): M47.816 - Spondylosis without myelopathy or radiculopathy, lumbar region Category: Medical (9) 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. In 2022 he had complaints on pain in the right lower extremity while good pain relieve on the left lower extremity by action of the spinal cord stimulator. Currently his multiple myeloma is in remission. I started him on Belbuca but he had side effects. His opioid addiction score is elevated to 32 and I will not be able to prescribe him any other opioid medications. I certainly would stay away from mu agonist. I offered him duloxetine but he stated that he has severe stomach upset on this medication. Ketamine oral was discussed with the patient. That only can happen when compounding pharmacy will go back online. On top of everything his insurance company does not cover the cost of Belbuca. Unfortunately at this time I can not offer this patient anything else. Patient Instructions: I here by testify that I spent 33 minutes in conversation with this patient as well as planning his care and organizing this note. 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
[2024-01-23 09:52] VITALS: BP 110/60; PULSE 70; RESP 14; O2SAT 99; BMI 20.3
== END 2024-01-23 10:26 | disposition home or self-care (01) ==
PROVIDERS: PCP Internal Medicine; Visit Provider Anesthesiology
DX: M06.9 Rheumatoid arthritis, unspecified (principal); M10.9 Gout, unspecified; C90.01 Multiple myeloma in remission; M54.50 Low back pain, unspecified; M96.1 Postlaminectomy syndrome, not elsewhere classified; G89.4 Chronic pain syndrome; M54.2 Cervicalgia; M47.816 Spondylosis without myelopathy or radiculopathy, lumbar region; M50.20 Other cervical disc displacement, unspecified cervical region; M50.30 Other cervical disc degeneration, unspecified cervical region
CPT/HCPCS: 99214

== ENCOUNTER → 2024-01-23 09:23 | Outpatient (BNVA) | payer OTHER, SELFPAY | PROVIDERS: PCP Internal Medicine; Visit Provider Anesthesiology | DX: Z51.81 Encounter for therapeutic drug level monitoring (principal); F11.20 Opioid dependence, uncomplicated; M06.9 Rheumatoid arthritis, unspecified; M10.9 Gout, unspecified; M54.50 Low back pain, unspecified; M96.1 Postlaminectomy syndrome, not elsewhere classified; M54.2 Cervicalgia; M47.816 Spondylosis without myelopathy or radiculopathy, lumbar region; M50.20 Other cervical disc displacement, unspecified cervical region; M50.30 Other cervical disc degeneration, unspecified cervical region; C90.01 Multiple myeloma in remission; G89.4 Chronic pain syndrome | CPT/HCPCS: 99212 ==

== ENCOUNTER 2025-02-25 13:50 | Outpatient (AMB) | payer OTHER, SELFPAY ==
[2025-02-25 14:15] VITALS: BP 128/72; PULSE 68; RESP 18; O2SAT 100; BMI 19.6
--- NOTE | 2025-02-25 14:15 | MHC.OFFVIS ---
Vital Signs 02/25/25 14:15 Height 5 ft 5 in Weight 118 lb BMI 19.6 BP 128/72 Blood Pressure Location Lt brachial Position Sitting Respiration 18 Pulse 68 Pulse Source Pulse Oximeter Pulse Oximetry (%) 100 Oxygen Delivery Method Room Air Intake Visit Reasons: Uncontrolled Chronic pain/[employer] Required: No Allergies oxycodone (From PERCOCET) Allergy (Intermediate, Verified 02/25/25 14:16) RASH HPI Comments Details: Robert is back in my office with a reports that his spinal cord stimulator is no longer functions. He reports that he has pain in the lower back aggravated when his spinal cord stimulator is working however it helps him tolerate his pain in the lower extremities better. When he turns of the spinal cord stimulator the pain in bilateral lower extremities becomes unbearable. We discussed situation at hands. Currently he allowed his device to be completely lost with the charge. There is no possibility to recharge this device in the office. It would be requiring 2 days of continuous charging to bring the charge of the device close to the numbers needed for effective stimulation. I explained to the patient that he has to do the charges and then try to turn the machine on. If the issue of the axial back pain is getting aggravated with machine action we can offer him non opioid intrathecal pain pump. I am thinking about bupivacaine pain pump in the abdominal positioned. Unfortunately patient is still a smoker and this reduces the effectiveness of neuromodulation devices for him. In the past we tried to admit him to the opioid program. Unfortunately because his total opioid addiction risk score is equal to 32 I will not be able to prescribe him any other opioids. I offered him duloxetine, unfortunately patient reported upset stomach on duloxetine. Ketamine pills were offered to the patient however it is impractical and impossible to prescribe those to the patient. Prior: As of the MRI of the cervical spine the only place where he can have this procedure to be done is actually in [facility]. He told me that he will look for another facility closer to his home here in [facility], but if he will not find appropriate place he will go there H In the past she received [employer] SCS and he reported good coverage on the left and less substantial coverage on the right. Third electrode insertion was offered to the patient however now it is on the background because I might need in the future those 2 outlets in his battery which are vacant to use for the cervical spine stimulation in the future. complains on lower back pain with radiation into bilateral lower extremities. He reports severity of the pain 9/10 He reports that pain starts in the lower back and radiates on the posterior surfaces of bilateral lower legs to the level of the lower ankles. Does not report radiation of the pain into the feet. He reports that he has problem started and 8 months ago. H This patient reports that he cannot go to MRI because of his anxiety however referral note from Dr. Walton office consists of multiple referrals to the MRIs in the past. He was subject of the epidural steroid injections in the past 1 in the neck and 1 in the back. Reports that none of the epidural steroid injections were helpful for him. He reports that he had surgery with Dr. Parrish which was related to lumbar spinal stenosis of the says surgery actually aggravated his pain and did not help his pain at all. [facility] Medical History SUSAN (obstructive sleep apnea) Barretts esophagus Nicotine dependence, cigarettes, uncomplicated Pure hypercholesterolemia Mild recurrent major depression Gout Chronic pain syndrome Postlaminectomy syndrome, lumbar Multiple myeloma in remission Anxiety Migraines GERD (gastroesophageal reflux disease) Surgical History History of esophageal hernia repair History of colonoscopy History of fusion of cervical spine (~07/2012) History of colostomy reversal (~2012) History of endoscopy History of tonsillectomy History of cholecystectomy (~01/2017) History of appendectomy (~2012) History of bone marrow biopsy (~12/2021) History of lumbar laminectomy for spinal cord decompression (~10/2021) History of cataract surgery (~01/2021) History of surgery on right wrist (~1989) Family History Mother Diabetes mellitus Father Stroke Social History Housing: Apartment Alcohol intake: never Patient Tobacco Use Status: Current everyday Tobacco user Tobacco use type: Cigarette Cigarettes Per Day: 7 Years Smoked: (onset 23yo, x 39yrs, max 2ppd, mainly 1ppd, now 1/2ppd - 40pyh) e-Cigarette/Vaping Use: Never Used Second Hand Smoke Exposure: No service: No Current occupational status: disabled Cognitive needs: No Hearing needs: No Vision needs: Yes (pt had eye surg. so he doesnt need glasses) Review of Systems Const All systems reviewed & are unremarkable except as noted in HPI and below ENT Reports Normal hearing present Neuro Reports Normal hearing present, Denies Abnormal speech present, Denies confusion and Denies Sensory deficit (Neuro) Psych Denies confusion Physical Exam Vital Signs: Last Vital Signs Pulse 68 02/25/25 14:15 Resp 18 02/25/25 14:15 BP 128/72 02/25/25 14:15 Pulse Ox 100 02/25/25 14:15 Oxygen Delivery Method Room Air 02/25/25 14:15 BMI result Body Mass Index 19.6 Const General: No confusion Nutritional Appearance: average body habitus Orientation/consciousness: No confusion Limitations: no limitations Eyes General: appearance normal, both eyes and all related structures Pupils: Equal, round and reactive pupils present EOM: EOMs intact bilaterally Neck Neck: Yes full ROM Chest Chest palpation & inspection: normal inspection of the chest Resp Effort & Inspection: normal respiratory effort, able to speak in complete sentences, normal respiratory pattern, no audible wheezes and no cough Cardio Jugular venous distension: no JVD GI Inspection: Yes normal to inspection Back/Spine/Pelvis Other: Able to stand on bilateral tiptoes in bilateral feet without difficulties. Able to stand on heels without difficulty. tenderness on percussion and palpation of spinous processes T8 through T11. Unable to take a deep breath. 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) Code(s): C90.01 - Multiple myeloma in remission Category: Medical (4) Severe lumbar pain: Code(s): M54.50 - Low back pain, unspecified Category: Medical (5) Postlaminectomy syndrome, lumbar: Code(s): M96.1 - Postlaminectomy syndrome, not elsewhere classified Category: Medical (6) Chronic pain syndrome: Code(s): G89.4 - Chronic pain syndrome Category: Medical (7) Cervical pain (neck): Code(s): M54.2 - Cervicalgia Category: Medical (8) Spondylosis of lumbar region without myelopathy or radiculopathy: Code(s): M47.816 - Spondylosis without myelopathy or radiculopathy, lumbar region Category: Medical (9) 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 Currently he complains on axial back pain getting exacerbated on stimulation and alleviation of the pain in the bilateral lower extremities with stimulation . This is very unfortunate: Patient turned this device off and did not charge it for long period of time, now it is completely ineffective. He may try to charge the device over the course of the 2 days to bring the numbers of the charge effective enough to stimulate. If it happens we would need to turn the stimulation on. If the device is not working need to replace the battery. The treatment of axial back pain while stimulation takes care of the lower extremities pain be done with non opioid intrathecal pain pump. He was attempted to be admitted in the chronic opioid program because of the high-risk of the addiction score. However I may consider addition of the opioids the pain pump since it is very little the patient can not do with the pain pump to administer himself medications more than they are prescribed. He has no history of opioid use disorder. Patient Instructions: I here by testify that I spent 30 minutes in conversation with this patient as well as planning his care and organizing this note. 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
--- OUTSIDE RECORDS SUMMARY | 2025-02-25 16:40 | XMS_ITS | Patient Health Record ---
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 Oral for 10 Active HYDROmorphone HCl 2 MG Oral for 3 Active Fluticasone Propionate HFA 110 MCG/ACT INHALE 1 PUFF TWICE A DAY Inhalation for 60 Active busPIRone HCl 15 MG Oral for 30 Active Social History Tobacco use other than smoking: Question Answer Notes Are you an other tobacco user? Yes Problems Problem Type SNOMED Code ICD Code Onset Dates Problem Status W/U Status Risk Notes Problem Spinal cord stimulator dysfunction (T85.192A) Active confirmed Problem Lumbar post-laminectomy syndrome (497487634) Lumbar postlaminectomy syndrome (M96.1) Active confirmed Problem Neurostimulation of spinal cord tissue (090673458) Spinal cord stimulator status (Z96.89) Active confirmed Problem Lumbar radicular pain (5439653526) Lumbar radicular pain (M54.16) Active confirmed Plan Of Treatment No Information Insurance Providers Payer Name Payer Address Payer Phone Subscriber Number Group Number Insured Name Patient Relationship to Insured Coverage Start Date Coverage End Date AARP MEDICARE ADVANTAGE FROM [facility] [id number] (PPO) [address] [address] [place] [address] [phone] [id number] BRIANNA ANGUIANO Self - patient is the insured Medical (General) History Medical History History ICD Code severe depression severe anxiety cancer bone sciatic nerve athritis Surgical History Surgery Date(Month/Year) sciatic 3 sufugus hernia
== END 2025-02-25 14:34 | disposition home or self-care (01) ==
LOC: HO.PMC 13:50
PROVIDERS: PCP Internal Medicine; Visit Provider Anesthesiology
DX: M06.9 Rheumatoid arthritis, unspecified (principal); M10.9 Gout, unspecified; C90.01 Multiple myeloma in remission; M54.50 Low back pain, unspecified; M96.1 Postlaminectomy syndrome, not elsewhere classified; G89.4 Chronic pain syndrome; M54.2 Cervicalgia; M47.816 Spondylosis without myelopathy or radiculopathy, lumbar region; M50.20 Other cervical disc displacement, unspecified cervical region; M50.30 Other cervical disc degeneration, unspecified cervical region
CPT/HCPCS: 99214

== ENCOUNTER → 2025-02-25 13:50 | Outpatient (BNVA) | payer OTHER, SELFPAY | PROVIDERS: PCP Internal Medicine; Visit Provider Anesthesiology | DX: M47.816 Spondylosis without myelopathy or radiculopathy, lumbar region (principal); M54.2 Cervicalgia; G89.4 Chronic pain syndrome; M96.1 Postlaminectomy syndrome, not elsewhere classified; M54.50 Low back pain, unspecified; C90.01 Multiple myeloma in remission; M10.9 Gout, unspecified; M06.9 Rheumatoid arthritis, unspecified | CPT/HCPCS: 99212 ==

== ENCOUNTER 2025-03-18 08:49 | Outpatient (AMB) | payer OTHER, SELFPAY ==
--- OUTSIDE RECORDS SUMMARY | 2018-04-02 07:40 | XMS_ITS | Continuity of Care Document ---
Author Organization [facility] Address [address] [place] [address] Care Team Providers Care Supervisor Estimator And Drafter Name Role Phone Griffin Box DO Unavailable Unavailable Allergies, Adverse Reactions, Alerts Substance Reaction Status Criticality OXYCODONE HCL Active No Information acetaminophen Active No Information Medications Medication Instructions Dosage Effective Dates (start - stop) Status Comments ondansetron HCl 4 mg tablet take 2 tablet by oral route every 8 hours for 2 days 8 MG - Active fluoxetine 40 mg capsule take 1 capsule by oral route every day in the morning 40 MG - Active doxepin 50 mg capsule take 1 capsule by oral route every day at bedtime 50 MG - Active baclofen 10mg BUCCAL CAPSULE - Active Protonix 40 mg tablet,delayed release take 1 tablet by oral route every day 40 MG - Active Procedures Procedure Date OFFICE/OUTPATIENT VISIT, [facility] DRUG TEST PRSMV CHEM ANLYZR Results Test Name Date and Time Measure Units Reference Range Abnormal Flag Status Comments Panel Description: Urine Drug Screen Final Amphetamines Negative ng/mL 1000 Final Barbiturates Negative ng/mL 200 Final Benzodiazepines Negative ng/mL 200 Final Phencyclidine Negative ng/mL 25 Final Cocaine Metabolite Negative ng/mL 300 Farhana l Methadone Metabolite (EDDP) Negative ng/mL 1000 Final Oxycodone Negative ng/mL 100 Final THC Positive ng/mL 50 H Final Ethyl Alcohol (ETOH) Negative mg/dL 100 Fi nal Ecstasy (MDMA) Negative ng/mL 500 Final Opiates Negative ng/mL 300 Final Advance Directives Directive Yes / No Effective Date File Name No Information Encounters Encounter Description Practice Location Reason(s) For Visit Diagnoses Date Provider Providers Copied on Encounter OFFICE/OUTPA TIENT VISIT, [facility], [address], [place], [place], [id number] , [facility] bilateral rib cage pain (chief complaint) Spondylosis w/o myelopathy of thoracic regionSpondylos is w/o myelopathy of lumbar regionMultiple myelomaChronic pancreatitisAne miaDepressionOs teoarthritisGER D w/ esophagitisSlee p apneaCostochond ritis Marcello Moya. [address] [place] [address], [address], [id number] , . tel:[phone] Referring Provider: Griffin Carbajal, [address] [place] [address], [address] . tel:[phone] Family History Family Member Type Diagnosis Age At Onset Mother Problem (finding) Payers Payer name Insurance type Covered alliance party ID Authoriza tiblossom(s) [facility] [id number] Medicare [place] [id number] Social History Type Description Quantity Date Captured Comments Alcohol Use Details No Caffeine Use Details coffee 3 cups per day Tobacco Use Status Moderate cigarette smoker (10-19 cigs/day) Smoking Status Heavy tobacco smoker Smoking Tobacco Use Details Cigarette: Years Used 20 Cigarette: 0.5 Packs per day, Pack Year: 10 Sex Male Vital Signs Date / Time: Height Weight BMI Pulse Rate Blood Pressure Temperature Respiratory Rate Body Surface Area Head Circumference Head Circ. Percentile Wt./Will. Percentile BMI percentile Pulse Ox Inhaled Ox 9:27 AM 65.00 in 70.307 kg (155.00 lbs) 25.7 9 kg/m eter (2) 82 /min 124/81 mm[Hg] 1.80 meter(2) Chief Complaint And Reason For Visit From encounter dated '04/02/2018 11:40'. bilateral rib cage pain (chief complaint). Description: The symptoms began 24 hours ago and generally lasts 24 Hours. The symptoms are reported as being severe. The symptoms occur constantly. The location is bilateral. Aggravating factors include cant walk or stand too long. Relieving factors include rx meds. pain level at a 9/10 patient has multiply myloma cancer. 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 Evaluate and treat ordered History Of Present Illness Encounter Date Complaint History Of Prese nt Illness bilateral rib cage pain The symp toms began 24 hours ago and generally lasts 24 Hours. The symptoms are reported as being severe. The symptoms occur constantly. The location is bilateral. Aggravating factors include cant walk or stand too long. Relieving factors include rx meds. pain level at a 9/10 patient has multiply myloma cancer. pain radiates to shoulder blades and lower back on the waist line Functional Status Date Functional Assessmen t Pain Score 9/10 Instructions Date Instruction Additional Infor mation I have advised the p atient to start a course of physical therapy 3 times a weeks for 6-8 weeks. Goals are to improve ROM, reduce pain, improve flexibility, increase strength and gain proficiency in a HEP. 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 Chrissy Lance, oncology. Related to Multiple myeloma To obtain records fr om Dr. Chrissy Lance, [facility].To obtain records from Dr. Adrián Bonilla of [facility]. To obtain hospital records from [facility] October 2017. 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 Adrián Bonilla, [facility], which the patient's indicates Dr. Bonilla was not receptive to prescribing him medications. Patient reports of being hospitalize multiple times, most recently in October 2017 in [facility], which received treatment with medications. Patient admits to the current use of THC products, which was started 3 months ago, and provides minimal benefit. No bowel/bladder deficits or focal motor weakness impression E-FORCSE was analyze d for clinical management and judgment. Patient admits to the current use of THC products, which only provides minimal relief assessment Costochondritis Mental Status Date Cognitive Assessment Orientation - [place] ed to time, place, person, situation.Normal Orientation Patient Care Teams Name Effective Dates (start - stop) Status Members No Information
--- OUTSIDE RECORDS SUMMARY | 2025-03-16 11:17 | XMS_ITS | Encounter Summary ---
Author Organization [facility] Address [address] [place] [address] Care Team Providers Care Community Specialist Name Role Phone Odell Ochoa MD Primary Care Provider [phone] Reason for Referral * Imaging (Routine) - Authorized Specialty Diagnoses / Procedures Referred By Unique falk Referred To Contact Radiology Diagnoses IgG monoclonal gammopathy Weight loss Procedures CT Chest/Abdomen/Pelvis w Contrast Radha Moore MD [address] [place], [place] [id number] Phone: tel: fax: [address] [address] Phone: tel: Referral ID Status Reason Start Date Expiration Date V isits Requested Visits Authorized [id number] Authorized 03/02/2025 03/02/2026 1 1 Reason for Visit * Imaging (Routine) - Authorized Specialty Diagnoses / Procedures Referred By Unique t Referred To Contact Radiology Diagnoses IgG monoclonal gammopathy Weight loss Procedures CT Chest/Abdomen/Pelvis w Contrast Radha Moore MD [address] [place] [address] Phone: tel: fax: [address] [address] Phone: tel: Referral ID Status Reason Start Date Expiration Date V isits Requested Visits Authorized [id number] Authorized 03/02/2025 03/02/2026 1 1 Encounter Details Date Type Department Care Team (Latest Contact Info) Description 03/16/2025 11:17 AM EDT - 03/16/2025 11:59 PM EDT Hospital Encounter [facility] CT Scan [address] [place] [id number] IgG monoclonal gammopathy; Weight loss Discharge Disposition: Home or Self Care Social History Tobacco Use Types Packs/Day Years Used Date Smoking Tobacco: Every Day Cigarettes Smokeless Tobacco: Never Alcohol Use Standard Drinks/Week Comments No 0 (1 standard drink = 0.6 oz pur e alcohol) Sex and Gender Information Value Date Recorded Sex Assigned at Not on file Legal Sex Male 6:18 PM EST Gender Identity Not on file Sexual Orientation Not on file documented as of this encounter Medications at Time of Discharge acetaminophen (TYLENOL 8 HOUR) 650 mg 8 hr tablet Take 1 tablet (650 mg total) by mouth every 8 hours as needed for moderate pain or mild pain. celecoxib (CeleBREX) 200 mg capsule Take 1 capsule (200 mg total) by mouth. 07/13/2024 escitalopram (LEXAPRO) 10 mg tablet Take 1 tablet (10 mg total) by mouth 1 (one) time each day. 05/21/2024 gabapentin (NEURONTIN) 600 mg tablet Take 1 tablet (600 mg total) by mouth 3 (three) times a day. oxyCODONE (ROXICODONE) 5 mg immediate release tablet TAKE 1 TABLET BY MOUTH DAILY AT BEDTIME NEEDED FOR PAIN traZODone (DESYREL) 50 mg tablet Take 1 tablet (50 mg total) by mouth at bedtime. zolpidem (AMBIEN) 10 mg tablet Take 1 tablet (10 mg total) by mouth at bedtime. 06/30/2024 documented as of this encounter Discharge Disposition Disposition Code Departure Means Destination Home or Self Care documented in this encounter Plan of Treatment Upcoming Encounters Date Type Department Care Team (Late st Contact Info) Description 03/23/2025 9:45 AM EDT Office Visit [facility] Hematology Oncology [address] [place] [phone] Radha Moore MD [address] [place] [address] Pending Results Name Type Priority Associated Diagnoses Date /Time CT Chest/Abdomen/Pelvis w Contrast Imaging Routine IgG monoclonal gammopathy Weight loss 03/16/2025 11:31 AM EDT Scheduled Orders Name Type Priority Associated Diagnoses Orde r Schedule CT Chest/Abdomen/Pelvis w Contrast Imaging Routine IgG monoclonal gammopathy Weight loss Once for 1 Occurrences starting 03/16/2025 until 03/16/2025 documented as of this encounter Visit Diagnoses Diagnosis IgG monoclonal gammopathy Monoclonal paraproteinemia Weight loss Loss of weight documented in this encounter Administered Medications Inactive Administered Medications - up to 3 most recent administrations Medication Order MAR Action Action Date Dose Rate Site iopamidoL (ISOVUE-370) 370 mg iodine /mL (76 %) injection 90 mL 90 mL, intravenous, Once in imaging, Starting on Sat03/16/25 at 1123, For 1 dose Given 03/16/2025 11:24 AM EDT 90 mL sodium chloride 0.9 % flush 10 mL 10 mL, intravenous, Once, On Sat03/16/25 at 1145, For 1 dose Given 03/16/2025 11:24 AM EDT 10 mL documented in this encounter Care Teams Community Specialist Relationship Specialty Start Date End Date Odell Ochoa MD [address] [place] [address] [address] [place] [address] PCP - General Internal Medicine 03/16/25 documented as of this encounter
--- NOTE | 2025-03-18 08:58 | A.OFFVIS_ITS ---
Vital Signs 03/18/25 08:59 Height 5 ft 5 in Weight 120 lb BMI 20.0 BP 106/60 Blood Pressure Location Lt brachial Position Sitting Respiration 18 Pulse 74 Pulse Source Pulse Oximeter Pulse Oximetry (%) 98 Oxygen Delivery Method Room Air Intake Visit Reasons: Follow Up Pt's Request Ultrasound Sonographer Required: No Allergies oxycodone (From PERCOCET) Allergy (Intermediate, Verified 03/18/25 08:56) RASH HPI Comments Details: Robert is back in my office to have an appointment with me and to meet [employer] policy services representative to adjust his spinal cord stimulator. We agreed that I will give him 1 more week to try stimulation, if stimulation is not working for him we should proceed with intrathecal pain pump. My initial goal would be to try non opioid medications on him 1st including bupivacaine, baclofen, clonidine. Later on addition of the small doses of the opioids is not excluded. He does not have OUD, I did not start him on chronic opioid program only because he was high-risk for opioid addiction on our questionnaire. Next time in 1 week I will discuss pain pump with him in details and I will send him for the [facility] psychology psychology evaluation. Prior: As of the MRI of the cervical spine the only place where he can have this procedure to be done is actually in [facility]. He told me that he will look for another facility closer to his home here in [facility], but if he will not find appropriate place he will go there H In the past she received [employer] SCS and he reported good coverage on the left and less substantial coverage on the right. Third electrode insertion was offered to the patient however now it is on the background because I might need in the future those 2 outlets in his battery which are vacant to use for the cervical spine stimulation in the future. complains on lower back pain with radiation into bilateral lower extremities. He reports severity of the pain 9/10 He reports that pain starts in the lower back and radiates on the posterior surfaces of bilateral lower legs to the level of the lower ankles. Does not report radiation of the pain into the feet. He reports that he has problem started and 8 months ago. H This patient reports that he cannot go to MRI because of his anxiety however referral note from Dr. Walton office consists of multiple referrals to the MRIs in the past. He was subject of the epidural steroid injections in the past 1 in the neck and 1 in the back. Reports that none of the epidural steroid injections were helpful for him. He reports that he had surgery with Dr. Parrish which was related to lumbar spinal stenosis of the says surgery actual ly aggravated his pain and did not help his pain at all. [facility] Medical History SUSAN (obstructive sleep apnea) Barretts esophagus Nicotine dependence, cigarettes, uncomplicated Pure hypercholesterolemia Mild recurrent major depression Gout Chronic pain syndrome Postlaminectomy syndrome, lumbar Multiple myeloma in remission Anxiety Migraines GERD (gastroesophageal reflux disease) Surgical History History of esophageal hernia repair History of colonoscopy History of fusion of cervical spine (~07/2012) History of colostomy reversal (~2012) History of endoscopy History of tonsillectomy History of cholecystectomy (~01/2017) History of appendectomy (~2012) History of bone marrow biopsy (~12/2021) History of lumbar laminectomy for spinal cord decompression (~10/2021) History of cataract surgery (~01/2021) History of surgery on right wrist (~1989) Family History Mother Diabetes mellitus Father Stroke Social History Housing: Apartment Alcohol intake: never Patient Tobacco Use Status: Current everyday Tobacco user Tobacco use type: Cigarette Cigarettes Per Day: 7 Years Smoked: (onset 23yo, x 39yrs, max 2ppd, mainly 1ppd, now 1/2ppd - 40pyh) e-Cigarette/Vaping Use: Never Used Second Hand Smoke Exposure: No service: No Current occupational status: disabled Cognitive needs: No Hearing needs: No Vision needs: Yes (pt had eye surg. so he doesnt need glasses) Review of Systems Const All systems reviewed & are unremarkable except as noted in HPI and below ENT Reports Normal hearing present Neuro Reports Normal hearing present, Denies Abnormal speech present, Denies confusion and Denies Sensory deficit (Neuro) Psych Denies confusion Physical Exam Vital Signs: Last Vital Signs Pulse 74 03/18/25 08:59 Resp 18 03/18/25 08:59 BP 106/60 03/18/25 08:59 Pulse Ox 98 03/18/25 08:59 Oxygen Delivery Method Room Air 03/18/25 08:59 BMI result Body Mass Index 20.0 Const General: No confusion Nutritional Appearance: average body habitus Orientation/consciousness: No confusion Limitations: no limitations Eyes General: appearance normal, both eyes and all related structures Pupils: Equal, round and reactive pupils present EOM: EOMs intact bilaterally Neck Neck: Yes full ROM Chest Chest palpation & inspection: normal inspection of the chest Resp Effort & Inspection: normal respiratory effort, able to speak in complete sen tences, normal respiratory pattern, no audible wheezes and no cough Cardio Jugular venous distension: no JVD GI Inspection: Yes normal to inspection Back/Spine/Pelvis Other: Able to stand on bilateral tiptoes in bilateral feet without difficulties. Able to stand on heels without difficulty. tenderness on percussion and palpation of spinous processes T8 through T11. Unable to take a deep breath. 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) Code(s): C90.01 - Multiple myeloma in remission Category: Medical (4) Severe lumbar pain: Code(s): M54.50 - Low back pain, unspecified Category: Medical (5) Postlaminectomy syndrome, lumbar: Code(s): M96.1 - Postlaminectomy syndrome, not elsewhere classified Category: Medical (6) Chronic pain syndrome: Code(s): G89.4 - Chronic pain syndrome Category: Medical (7) Cervical pain (neck): Code(s): M54.2 - Cervicalgia Category: Medical (8) Spondylosis of lumbar region without myelopathy or radiculopathy: Code(s): M47.816 - Spondylosis without myelopathy or radiculopathy, lumbar region Category: Medical (9) 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 Currently he complains on axial back pain getting exacerbated on stimulation and alleviation of the pain in the bilateral lower extremities with stimulation . He was able to charge his battery and he is working today with [employer] policy services representative to revive his device. I will give him 1 week time to experience stimulation again, if it is not helpful we will start to talk about pain pump. I can remove the spinal cord stimulator and perform implantation of the pain pump as 1 procedure. He would need to go for psychological evaluation. After he will obtain psychological evaluation I will start do trials on non opioid medications including clonidine, baclofen, bupivacaine, I mainly concentrated on non opioid medications because in the past he had high-risk of opioid addiction after obtaining our office questionnaire with opioid addiction risks. I would not mind in the future to add small doses of the opioids as a secondary drug to main medication in his pump. The treatment of axial back pain while stimulation takes care of the lower extremities pain be done with non opioid intrathecal pain pump. I will see him in 1 week and we will discuss pain pump and preparation to the procedure by doing psychological evaluation. He also smokes and that can be detrimental to the function of the pain pump as well as it was detrimental to his spinal cord stimulator. Smoking cessation will be discussed next time he is here in the office. Patient Instructions: I here by testify that I spent 36 minutes in conversation with this patient as well as planning his care evaluating his prior records evaluating prior diagnostic studies and prior history is as well as organizing this note. 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
[2025-03-18 08:59] VITALS: BP 106/60; PULSE 74; RESP 18; O2SAT 98
--- OUTSIDE RECORDS SUMMARY | 2025-03-18 09:04 | XMS_ITS | Patient Health Record ---
Author Organization [employer] [facility] Address [address] [place], [place] [id number] Care Team Providers Care Nuclear Medicine Technician Name Role Phone NONE, NO PCP Primary Care Provider Santi Mckeon Unavailable [phone] Allergies Allergen (clinical drug ingredient) Drug/Non Drug [...] Problem Status W/U Status Risk Notes Problem Mechanical complication of nervous system device, implant AND/OR graft (70307060) Spinal cord stimulator dysfunction (T85.192A) Active confirmed Problem Lumbar post-laminectomy syndrome (476420092) Lumbar postlaminectomy syndrome (M96.1) Active confirmed Problem Neurostimulation of spinal cord tissue (021130432) Spinal cord stimulator status (Z96.89) Active confirmed Problem Lumbar radicular pain (6615227977) Lumbar radicular pain (M54.16) Active confirmed Plan Of Treatment No Information Insurance Providers Payer Name Payer Address Payer Phone Subscriber Number Group Number Insured Name Patient Relationship to Insured Coverage Start Date Coverage End Date AARP MEDICARE ADVANTAGE FROM [id number] (PPO) [address] [address] [place] [address] [phone] [id number] BRIANNA ANGUIANO Self - patient is the insured Medical (General) History Medical History History ICD Code severe depression severe anxiety cancer bone sciatic nerve athritis Surgical History Surgery Date(Month/Year) sciatic 3 sufugus hernia
--- OUTSIDE RECORDS SUMMARY | 2025-03-18 09:04 | XMS_ITS | Encounter Summary ---
Author Organization [facility] Address [address] [place] [address] Care Team Providers Care Sales Support Coordinator Name Role Phone Unavailable Primary Care Provider Unavailabl e Encounter Details Date Type Department Care Team (Late st Contact Info) Description 01/30/2022 Dental Interim Note Caring [facility] Main Dental [address] [place] [address] Melissa Lopez [address] [place] [address] Social History Tobacco Use Types Packs/Day Years Used Date Smoking Tobacco: Never Smokeless Tobacco: Never Social Connections Answer Date Recorded Social Connections and Isolation 0 12/13/2021 Financial Resource Strain Answer Date R ecorded Financial Resource Strain 0 2021 Stress Answer Date Recorded Stress 0 12/13/2021 Physical Activity Answer Date Recorded Physical Activity 0 12/13/2021 Food Insecurity Answer Date Recorded Food 0 12/13/2021 Transportation Needs Answer Date Record ed Transportation 0 12/13/2021 Housing Stability Answer Date Recorded Housing 0 12/13/2021 Safety and Environment Answer Date Aroldo rded Safety 0 12/13/2021 Utilities Answer Date Recorded Utilities 0 12/13/2021 Employment Answer Date Recorded Employment 0 12/13/2021 Sex and Gender Information Value Date Recorded Sex Assigned at Not on file Legal Sex Male 1:24 PM PDT Gender Identity Not on file Sexual Orientation Not on file COVID-19 Exposure Response Date Recorded In the last 10 days, have yo u been in contact with someone who was confirmed or suspected to have Coronavirus/COVID-19? No / Unsure 01/31/2022 1:21 PM EDT documented as of this encounter Plan of Treatment Not on file documented as of this encounter Visit Diagnoses Not on filedocumented in this encounter
--- OUTSIDE RECORDS SUMMARY | 2025-03-18 09:04 | XMS_ITS | Clinical Summary ---
Author Organization [facility] Address [address] [place] [address] Care Team Providers Care Blister Packing Machine Tender Name Role Phone Unavailable Primary Care Provider Unavailabl e Allergies Active Allergy Reactions Criticality Noted Date Comments Oxycodone Itching,Rash Low 03/02/2020 Medications Medication Sig Dispensed Refills Start Date End Date Status acetaminophen (TYLENOL) 650 MG CR tablet Take 1 tablet (650 mg total) by mouth every 8 (eight) hours as needed for pain. 0 Active amitriptyline (ELAVIL) tablet 50 mg Take 40 mg by mouth every night at bedtime. 0 Active sertraline (ZOLOFT) 50 MG tablet Take 1 tablet (50 mg total) by mouth daily. 0 Active QUEtiapine (SEROquel) 200 MG tablet Take 1 tablet (200 mg total) by mouth every night at bedtime. 0 Active Morphine Sulfate ER (MS CONTIN) 15 MG TBCR Take 1 tablet (15 mg total) by mouth every 12 (twelve) hours. 0 Active gabapentin (NEURONTIN) 600 MG tablet Take 1 tablet (600 mg total) by mouth 3 (three) times a day. 0 Active Active Problems No known active problems Social History Tobacco Use Types Packs/Day Years Used Date Smoking Tobacco: Every Day Cigarettes 0.5 Smokeless Tobacco: Never Alcohol Use Standard Drinks/Week Comments No 0 (1 standard drink = 0.6 oz pur e alcohol) Sex and Gender Information Value Date Recorded Sex Assigned at Male 03/02/2020 1:12 PM EDT Gender Identity Not on file Sexual Orientation Not on file Job Start Date Occupation Industry Not on file Not on file Not on file Last Filed Vital Signs Vital Sign Reading Time Taken Comments Blood Pressure 117/69 01/24/2024 10:47 AM EDT Pulse 59 01/24/2024 10:47 AM EDT Temperature 36.8 C (98.2 F) 01/24/2024 10:47 AM EDT Respiratory Rate - - Oxygen Saturation 100% 01/24/2024 10:47 AM EDT Inhaled Oxygen Concentration - - Weight 53.5 kg (118 lb) 01/24/2024 10:47 AM EDT Height 165.1 cm (5' 5 ) 01/24/2024 10:47 AM EDT Body Mass Index 19.64 01/24/2024 10:47 AM EDT Plan of Treatment Health Maintenance Due Date Last Done Comments Hepatitis C Screening 1960 Depression Screening 1970 Preventative Health Evaluation 1976 Colon Cancer Screening (Colonoscopy) 11/11/2003 Pneumococcal Vaccine (2 of 2 - PCV) 05/31/2020 05/31/2019 Fall Risk Assessment 11/11/2023 COVID-19 Vaccine (4 - season) 2024 09/19/2023, 07/12/2021, 11/23/2020 Influenza Vaccine (#1) 2025 3, 06/05/2022, 05/17/2020, Additional history exists DTap / Tdap / Td (2 - Td or Tdap) 05/19/2030 05/19/2020 Shingrix-Zoster Vaccine Completed 10/28/2020, 06/27 RSV Adult > 60+ Yrs or Completed 09/19/2023 Hepatitis B Vaccines Aged Out No long er eligible based on patient's age to complete this topic RSV Ped < 20 months Aged Out No longe r eligible based on patient's age to complete this topic Robert Osman Personal/Family Self 1960 [address] [place] [id number]
== END 2025-03-18 09:40 | disposition home or self-care (01) ==
PROVIDERS: PCP Internal Medicine; Visit Provider Anesthesiology
DX: M06.9 Rheumatoid arthritis, unspecified (principal); M10.9 Gout, unspecified; C90.01 Multiple myeloma in remission; M54.50 Low back pain, unspecified; M96.1 Postlaminectomy syndrome, not elsewhere classified; G89.4 Chronic pain syndrome; M54.2 Cervicalgia; M47.816 Spondylosis without myelopathy or radiculopathy, lumbar region; M50.20 Other cervical disc displacement, unspecified cervical region; M50.30 Other cervical disc degeneration, unspecified cervical region
CPT/HCPCS: 99214

== ENCOUNTER → 2025-03-18 08:49 | Outpatient (BNVA) | payer OTHER, SELFPAY | PROVIDERS: PCP Internal Medicine; Visit Provider Anesthesiology | DX: C90.01 Multiple myeloma in remission (principal); M54.50 Low back pain, unspecified; M10.9 Gout, unspecified; M96.1 Postlaminectomy syndrome, not elsewhere classified; M54.2 Cervicalgia; M47.816 Spondylosis without myelopathy or radiculopathy, lumbar region; M50.20 Other cervical disc displacement, unspecified cervical region; M50.30 Other cervical disc degeneration, unspecified cervical region; G89.4 Chronic pain syndrome; M06.9 Rheumatoid arthritis, unspecified | CPT/HCPCS: 99212 ==

== ENCOUNTER 2025-03-25 10:01 | Outpatient (AMB) | payer OTHER, SELFPAY ==
--- OUTSIDE RECORDS SUMMARY | 2025-03-23 09:45 | XMS_ITS | Encounter Summary ---
Author Organization [facility] Address [address] [place] [address] Care Team Providers Care Travel Money Advisor Name Role Phone Odell Ochoa MD Primary Care Provider [phone] Reason for Visit * Reason Comments Follow-up Encounter Details Date Type Department Care Team (Late st Contact Info) Description 03/23/2025 9:45 AM EDT Office Visit [facility] Hematology Oncology [address] [place] [id number] Radha Moore MD [address] [place] [address] MGUS (monoclonal gammopathy of unknown significance) (Primary Dx); Other chronic pain; Weight loss; Pancytopenia (CMS/HCC V24, CMS/HCC V28); IgA monoclonal gammopathy Social History Tobacco Use Types Packs/Day Years Used Date Smoking Tobacco: Every Day Cigarettes Smokeless Tobacco: Never Tobacco Cessation:Ready to Q uit: Not Asked; Counseling Given: Not Answered Alcohol Use Standard Drinks/Week Comments No 0 (1 standard drink = 0.6 oz pur e alcohol) Sex and Gender Information Value Date Recorded Sex Assigned at Not on file Legal Sex Male 6:18 PM EST Gender Identity Not on file Sexual Orientation Not on file documented as of this encounter Last Filed Vital Signs Vital Sign Reading Time Taken Comments Blood Pressure 105/53 03/23/2025 9:38 AM EDT Pulse 61 03/23/2025 9:38 AM EDT Temperature 36.3 C (97.3 F) 03/23/2025 9:38 AM EDT Respiratory Rate - - Oxygen Saturation 100% 03/23/2025 9:38 AM EDT Inhaled Oxygen Concentration - - Weight 55.3 kg (122 lb) 03/23/2025 9:38 AM EDT Height - - Body Mass Index 20.3 01/24/2024 10:47 AM EDT documented in this encounter Progress Notes * Radha Moore MD - 03/23/2025 9:45 AM EDT ONC CANCER FOLLOW UP CHIEF COMPLAINT: Follow-up IDENTIFIER:Robert Osman is a 64 y.o. male. HPI: Patient is a very pleasant 64-year-old gentleman, who has IgG kappa monoclonal gammopathy,most likely MGUS, patient has been having severe back pain issues and has been seeing different pain management without any significant improvement, patient will be going this week to Dr. Cagle in [place] to have back procedure done, patient was also having significant weight loss because of thatreason I did extensive oncological workup which is completely unremarkable ROS: Patient still has significant issues with the back pain No significant change from previous visit of 03/02/2025 PAST MEDICAL HISTORY: Anxiety/depression Fibromyalgia/osteoarthritis López's esophagus Diverticulosis Gastroparesis Migraine headache Obstructive sleep apnea Carotid artery stenosis Smoldering myeloma vs MGUS/IgA kappa monoclonal gammopathy SOCIAL HISTORY: Social History Tobacco Use Smoking status: Every Day Current packs/day: 0.50 Types: Cigarettes Smokeless tobacco: Never Substance Use Topics Alcohol use: No FAMILY HISTORY: Noncontributory Current Outpatient Medications: acetaminophen (TYLENOL 8 HOUR) 650 mg 8 hr tablet, Take 1 tablet (650 mg total) by mouth every 8 hours as needed for moderate pain or mild pain., Disp: , Rfl: celecoxib (CeleBREX) 200 mg capsule, Take 1 capsule (200 mg total) by mouth., Disp: , Rfl: escitalopram (LEXAPRO) 10 mg tablet, Take 1 tablet (10 mg total) by mouth 1 (one) time each day., Disp: , Rfl: gabapentin (NEURONTIN) 600 mg tablet, Take 1 tablet (600 mg total) by mouth 3 (three) times a day.,Disp: , Rfl: oxyCODONE (ROXICODONE) 5 mg immediate release tablet, TAKE 1 TABLET BY MOUTH DAILY AT BEDTIME NEEDED FOR PAIN, Disp: , Rfl: traZODone (DESYREL) 50 mg tablet, Take 1 tablet (50 mg total) by mouth at bedtime., Disp: , Rfl: zolpidem (AMBIEN) 10 mg tablet, Take 1 tablet (10 mg total) by mouth at bedtime., Disp: , Rfl: Allergies Allergen Reactions Oxycodone Itching and Rash Other reaction(s): Rash/Dermatitis PHYSICAL EXAM: Visit Vitals BP 105/53 (BP Location: Left arm, Patient Position: Sitting, BP Cuff Size: Adult) Pulse 61 Temp 36.3 ??C (97.3 ??F) (Temporal) Wt 55.3 kg (122 lb) SpO2 100% BMI 20.30 kg/m?? Smoking Status Every Day BSA 1.6 m?? ECOG 0-1 APPEARANCE: Alert and oriented in no acute distress EYES: nonicteric sclera pink conjunctiva ORAL CAVITY: No erythema or exudates NECK: Neck supple, no significant adenopathy, HEART: normal S1 and S2 LUNG: clear to auscultation bilaterally LYMPH NODES: No palpable superficial adenopathy ABDOMEN: soft, nontender and no organomegaly appreciated EXTREMITIES: No significant edema erythema or tenderness LABS: CT scan of chest abdomen pelvis did not show any occult malignancy IgG less than 800 mg Free kappa lambda light chain and ratio is normal Normal complete blood count Normal comprehensive metabolic panel IMPRESSION: 1. MGUS (monoclonal gammopathy of unknown significance) 2. Other chronic pain 3. Weight loss After reviewing history physical laboratory data I do not think patient has any occult malignant process, patient does not have any progression of his IgG monoclonal gammopathy which is most likely MGUS, I told patient that he may have significant weight loss because of his severe back pain which apparently was not well-managed. I told patient to follow-up with pain management closely PLAN: I will see him back in 6 to 12 months but earlier if any issues Radha Moore MD documented in this encounter Plan of Treatment Upcoming Encounters Date Type Department Care Team (Late st Contact Info) Description 02/02/2026 9:45 AM EDT Office Visit [facility] Hematology Oncology [address] [place] [phone] Radha Moore MD [address] [place] [address] Scheduled Orders Name Type Priority Associated Diagnoses Orde r Schedule CBC and differential Lab Routine MGUS (monoclonal gammopathy of unknown significance) Expected: 09/23/2025, Expires: 03/23/2026 Comprehensive metabolic panel Lab Routine MGUS (monoclonal gammopathy of unknown significance) Expected: 09/23/2025, Expires: 03/23/2026 Immunoglobulins IgG, IgA, IgM Lab Routine Pancytopenia ([facility] V24, [facility] V28) IgA monoclonal gammopathy Expected: 09/23/2025, Expires: 03/23/2026 documented as of this encounter Visit Diagnoses Diagnosis MGUS (monoclonal gammopathy of unknown significance)- Primary Monoclonal paraproteinemia Other chronic pain Weight loss Loss of weight Pancytopenia ([facility] V24, [facility] V28) IgA monoclonal gammopathy Monoclonal paraproteinemia documented in this encounter Care Teams Travel Money Advisor Relationship Specialty Start Date End Date Odell Ochoa MD [address] [place] [address] [address] [place] [address] PCP - General Internal Medicine 03/16/25 documented as of this encounter
[2025-03-25 10:41] VITALS: BP 123/64; PULSE 60; RESP 18; O2SAT 98
--- NOTE | 2025-03-25 10:41 | A.OFFVIS_ITS ---
Vital Signs 03/25/25 10:41 Weight 123 lb BP 123/64 Blood Pressure Location Lt brachial Position Sitting Respiration 18 Pulse 60 Pulse Source Pulse Oximeter Pulse Oximetry (%) 98 Oxygen Delivery Method Room Air Intake Visit Reasons: 1 week follow up Client Development Consultant Required: No Allergies oxycodone (From PERCOCET) Allergy (Intermediate, Verified 03/25/25 10:40) RASH HPI Comments Details: Robert is back in my office to report on results of modified [employer] spinal cord stimulation. Patient reports no improvement with modified stimulation. We discussed possibility of treatment of his pain with intrathecal pain pump. He requests me to remove his spinal cord stimulator and implant a pain pump. I agreed to do that but I told him that he needs to get psychological evaluation done. He has a psychologist and psychiatrist. I provided that template for the patient. As soon as the patient's psychiatrist will provide us the psychological evaluation with the approval of the trials we will start trials of the pain pump. Initially I will try him on non opioid medications like bupivacaine. The patient does not have opioid use disorder, in the past I did not start him on opioids because he is high-risk for addiction on the questionnaire. I believe it will be safe to continue opioid and non opioid medications in his pain pump. We will see how the situation will refill itself on the trials. He would give us a call when psychological evaluation will be here and we will schedule the pain pump trial with bupivacaine for him. Prior: As of the MRI of the cervical spine the only place where he can have this procedure to be done is actually in [facility]. He told me that he will look for another facility closer to his home here in [facility], but if he will not find appropriate place he will go there. In the past she received [employer] SCS and he reported good coverage on the left and less substantial coverage on the right. Third electrode insertion was offered to the patient however now it is on the background because I might need in the future those 2 outlets in his battery which are vacant to use for the cervical spine stimulation in the future. complains on lower back pain with radiation into bilateral lower extremities. He reports severity of the pain 9/10 He reports that pain starts in the lower back and radiates on the posterior surfaces of bilateral lower legs to the level of the lower ankles. Does not report radiation of the pain into the feet. He r eports that he has problem started and 8 months ago. H This patient reports that he cannot go to MRI because of his anxiety however referral note from Dr. Walton office consists of multiple referrals to the MRIs in the past. He was subject of the epidural steroid injections in the past 1 in the neck and 1 in the back. Reports that none of the epidural steroid injections were helpful for him. He reports that he had surgery with Dr. Parrish which was related to lumbar spinal stenosis of the says surgery actually aggravated his pain and did not help his pain at all. [facility] Medical History SUSAN (obstructive sleep apnea) Barretts esophagus Nicotine dependence, cigarettes, uncomplicated Pure hypercholesterolemia Mild recurrent major depression Gout Chronic pain syndrome Postlaminectomy syndrome, lumbar Multiple myeloma in remission Anxiety Migraines GERD (gastroesophageal reflux disease) Surgical History History of esophageal hernia repair History of colonoscopy History of fusion of cervical spine (~07/2012) History of colostomy reversal (~2012) History of endoscopy History of tonsillectomy History of cholecystectomy (~01/2017) History of appendectomy (~2012) History of bone marrow biopsy (~12/2021) History of lumbar laminectomy for spinal cord decompression (~10/2021) History of cataract surgery (~01/2021) History of surgery on right wrist (~1989) Family History Mother Diabetes mellitus Father Stroke Social History Housing: Apartment Alcohol intake: never Patient Tobacco Use Status: Current everyday Tobacco user Tobacco use type: Cigarette Cigarettes Per Day: 7 Years Smoked: (onset 23yo, x 39yrs, max 2ppd, mainly 1ppd, now 1/2ppd - 40pyh) e-Cigarette/Vaping Use: Never Used Second Hand Smoke Exposure: No service: No Current occupational status: disabled Cognitive needs: No Hearing needs: No Vision needs: Yes (pt had eye surg. so he doesnt need glasses) Review of Systems Const All systems reviewed & are unremarkable except as noted in HPI and below ENT Reports Normal hearing present Neuro Reports Normal hearing present, Denies Abnormal speech present, Denies confusion and Denies Sensory deficit (Neuro) Psych Denies confusion Physical Exam Vital Signs: Last Vital Signs Pulse 60 03/25/25 10:41 Resp 18 03/25/25 10:41 BP 123/64 03/25/25 10:41 Pulse Ox 98 03/25/25 10:41 Oxygen Delivery Method Room Air 03/25/25 10:41 Const General: No confusion Nutritional Appearance: average body habitus Orientation/consciousness: No confusion Limitations: no limitations Eyes General: appearance normal, both eyes and all related structures Pupils: Equal, round and reactive pupils present EOM: EOMs intact bilaterally Neck Neck: Yes full ROM Chest Chest palpation & inspection: normal inspection of the chest Resp Effort & Inspection: normal respiratory effort, able to speak in complete sentences, normal respiratory pattern, no audible wheezes and no cough Cardio Jugular venous distension: no JVD GI Inspection: Yes normal to inspection Back/Spine/Pelvis Other: Able to stand on bilateral tiptoes in bilateral feet without difficulties. Able to stand on heels without difficulty. tenderness on percussion and palpation of spinous processes T8 through T11. Unable to take a deep breath. 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) Code(s): C90.01 - Multiple myeloma in remission Category: Medical (4) Severe lumbar pain: Code(s): M54.50 - Low back pain, unspecified Category: Medical (5) Postlaminectomy syndrome, lumbar: Code(s): M96.1 - Postlaminectomy syndrome, not elsewhere classified Category: Medical (6) Chronic pain syndrome: Code(s): G89.4 - Chronic pain syndrome Category: Medical (7) Cervical pain (neck): Code(s): M54.2 - Cervicalgia Category: Medical (8) Spondylosis of lumbar region without myelopathy or radiculopathy: Code(s): M47.816 - Spondylosis without myelopathy or radiculopathy, lumbar region Category: Medical (9) 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 Currently he complains on axial back pain getting exacerbated on stimulation and alleviation of the pain in the bilateral lower extremities with stimulation . He was able to charge his battery and he is working today with [employer] civil rights representative to revive his device. I gave him 1 week to try stimulation again. Today he reports in my office with statement that new stimulation is not helping his pain. He is interested in implantation of the intrathecal pain pump. See discussion as above. He requests me to remove spinal cord stimulator when I will be implanting his intrathecal pain pump. I explained to the patient that we need to get psychological evaluation from his psychiatrist 1st. Templa te was given to the patient to be included as the formulation in the psychiatric note. As soon as the note is here he will give us a call and we will start to schedule him for the pain pump trials. First trial will go with small dose of bupivacaine 0.5 to 1 mg. He never was diagnose with opioid use disorder however when he tried to get admitted to our chronic opioid oral program he had very hig h numbers on questionnaire for opioid addiction. 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
--- OUTSIDE RECORDS SUMMARY | 2025-03-25 10:48 | XMS_ITS | Encounter Summary ---
Author Organization [facility] Address [address] [place] [address] Care Team Providers Care Underwear Finisher Name Role Phone Unavailable Primary Care Provider Unavailabl e Encounter Details Date Type Department Care Team (Late st Contact Info) Description 01/30/2022 Dental Interim Note Caring [facility] Main Dental [address] [place] [address] Melissa Lopez Y [address] [place] [address] Social History Tobacco Use Types Packs/Day Years [...]
--- OUTSIDE RECORDS SUMMARY | 2025-03-25 10:48 | XMS_ITS | Patient Health Record ---
Author Organization [facility] Address [address] [place], [place] [id number] Care Team Providers Care Air Tank Assembler Name Role Phone NONE, NO PCP Primary Care Provider Santi Mckeon Unavailable [phone] Allergies Allergen (clinical drug ingredient) Drug/Non Drug [...] (T85.192A) Active confirmed Problem Lumbar post-laminectomy syndrome (797140666) Lumbar postlaminectomy syndrome (M96.1) Active confirmed Problem Neurostimulation of spinal cord tissue (918523733) Spinal cord stimulator status (Z96.89) Active confirmed Problem Lumbar radicular pain (8504660323) Lumbar radicular pain (M54.16) Active confirmed Plan Of Treatment No Information Insurance Providers Payer Name Payer Address Payer Phone Subscriber Number Group Number Insured Name Patient Relationship to Insured Coverage Start Date Coverage End Date AARP MEDICARE ADVANTAGE FROM [facility] [id number] (PPO) [address] [address] [place] [address] [phone] [id number] BRIANNA ANGUIANO Self - patient is the insured Medical (General) History Medical History History ICD Code severe depression severe anxiety cancer bone sciatic nerve athritis Surgical History Surgery Date(Month/Year) sciatic 3 sufugus hernia
== END 2025-03-25 11:09 | disposition home or self-care (01) ==
LOC: HO.PMC 10:02
PROVIDERS: PCP Internal Medicine; Visit Provider Anesthesiology
DX: M06.9 Rheumatoid arthritis, unspecified (principal); M10.9 Gout, unspecified; C90.01 Multiple myeloma in remission; M54.50 Low back pain, unspecified; M96.1 Postlaminectomy syndrome, not elsewhere classified; G89.4 Chronic pain syndrome; M54.2 Cervicalgia; M47.816 Spondylosis without myelopathy or radiculopathy, lumbar region; M50.20 Other cervical disc displacement, unspecified cervical region; M50.30 Other cervical disc degeneration, unspecified cervical region
CPT/HCPCS: 99213

== ENCOUNTER → 2025-03-25 10:01 | Outpatient (BNVA) | payer OTHER, SELFPAY | PROVIDERS: PCP Internal Medicine; Visit Provider Anesthesiology | DX: M54.50 Low back pain, unspecified (principal); M06.9 Rheumatoid arthritis, unspecified; M10.9 Gout, unspecified; G89.4 Chronic pain syndrome; M47.816 Spondylosis without myelopathy or radiculopathy, lumbar region; M50.20 Other cervical disc displacement, unspecified cervical region; M50.30 Other cervical disc degeneration, unspecified cervical region; M96.1 Postlaminectomy syndrome, not elsewhere classified; C90.01 Multiple myeloma in remission | CPT/HCPCS: 99212 ==

== ENCOUNTER 2025-03-27 14:17 | Emergency (ER) | payer OTHER, SELFPAY ==
--- OUTSIDE RECORDS SUMMARY | 2018-04-02 07:40 | XMS_ITS | Continuity of Care Document ---
Author Organization [facility] Address [address] [place] [address] Care Team Providers Care Chorus Master Name Role Phone Griffin Box DO Unavailable Unavailable Allergies, Adverse Reactions, Alerts Substance Reaction Status Criticality OXYCODONE HCL Active No Information acetaminophen Active No Information Medications Medication Instructions Dosage Effective Dates (start - stop) Status Comments Protonix 40 mg tablet,delayed release take 1 tablet by oral route every day 40 MG - Active baclofen 10mg BUCCAL CAPSULE - Active doxepin 50 mg capsule take 1 capsule by oral route every day at bedtime 50 MG - Active fluoxetine 40 mg capsule take 1 capsule by oral route every day in the morning 40 MG - Active ondansetron HCl 4 mg tablet take 2 tablet by oral route every 8 hours for 2 days 8 MG - Active Procedures Procedure Date OFFICE/OUTPATIENT VISIT, [facility] TEST PRSMV CHEM ANLYZR Results Test [...] Providers Copied on Encounter OFFICE/OUTPA TIENT VISIT, [facility], [address], [place], [place], [id number] , [facility] bilateral rib cage pain (chief complaint) Spondylosis w/o myelopathy of thoracic regionSpondylos is w/o myelopathy of lumbar regionMultiple myelomaChronic pancreatitisAne miaDepressionOs teoarthritisGER D w/ esophagitisSlee p apneaCostochond ritis Marcello Moya. [address] [place] [address], [address], [id number] , . tel:[phone] Referring Provider: Griffin Carbajal, [address] [place] [address], [address] . 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 Chrissy Lance, [facility] [place].To obtain records from Dr. Adrián [facility]illa of [facility]. To obtain hospital records from [facility] October 2017. 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 Chrissy Lance, oncology. Related to Multiple myeloma Assessments Type Assessment Date assessment Spondylosis w/o myelopathy of th oracic region assessment Spondylosis w/o myelopathy of jewel mbar region assessment Multiple myeloma assessment Chronic pancreatitis assessment Anemia assessment Depression assessment Osteoarthritis assessment GERD w/ esophagitis assessment Sleep apnea impression (Introduction contin ued) Patient has been seen for one visit by Dr. Adrián Bonilla, [facility], which the patient's indicates Dr. Bonilla was not receptive to prescribing him medications. Patient reports of being hospitalize multiple times, most recently in October 2017 in [facility], which received treatment with medications. Patient admits [...] Mental Status Date Cognitive Assessment Orientation - [place] ed to time, place, person, situation.Normal Orientation Patient Care Teams Name Effective Dates (start - stop) Status Members No Information
--- OUTSIDE RECORDS SUMMARY | 2025-03-23 09:45 | XMS_ITS | Encounter Summary ---
Author Organization [facility] Address [address] [place] [address] Care Team Providers Care Councillor [employer] Name Role Phone Odell Ochoa MD Primary Care Provider [phone] Reason for Visit * Reason Comments Follow-up Encounter Details Date Type Department Care Team (Late st Contact Info) Description 03/23/2025 9:45 AM EDT Office Visit [facility] Hematology Oncology [address] [place] [phone] Radha Moore MD [address] [place] [address] MGUS (monoclonal gammopathy of unknown significance) (Primary [...] going this week to Dr. Cagle in [place] to have back procedure done, patient was [...] Description 02/02/2026 9:45 AM EDT Office Visit [facility] Hematology Oncology [address] [place] [phone] Radha Moore MD [address] [place] [address] Scheduled Orders Name Type Priority Associated Diagnoses Orde r Schedule CBC and differential Lab Routine MGUS (monoclonal gammopathy of unknown significance) Expected: 09/23/2025, Expires: 03/23/2026 Comprehensive metabolic panel Lab Routine MGUS (monoclonal gammopathy of unknown significance) Expected: 09/23/2025, Expires: 03/23/2026 Immunoglobulins IgG, IgA, IgM Lab Routine Pancytopenia ([facility] V24, [facility] V28) IgA monoclonal gammopathy Expected: 09/23/2025, Expires: 03/23/2026 documented as of this encounter Visit Diagnoses Diagnosis MGUS (monoclonal gammopathy of unknown significance)- Primary Monoclonal paraproteinemia Other chronic pain Weight loss Loss of weight Pancytopenia ([facility] V24, [facility] V28) IgA monoclonal gammopathy Monoclonal paraproteinemia documented in this encounter Care Teams Councillor [employer] Relationship Specialty Start Date End Date Odell Ochoa MD [address] [place] [address] [address] [place] [address] PCP - General Internal Medicine 03/16/25 documented as of this encounter
--- NOTE | ~2025-03-27 | XR_ITS ---
CLINICAL HISTORY: atraumatic L wrist swelling pain 4 view left wrist Comparison: None provided Findings: Multiple small bone fragments within the posterior aspect of the wrist. Chronic appearing deformity of the head of the 1st metacarpal. No dislocation. There are findings of SLAC wrist. There is severe chondrocalcinosis. There is a degenerative cyst within the hamate. No radiopaque foreign body. IMPRESSION: 1. There are bone fragments within the posterior aspect of the carpus, likely chronic. 2. There are findings of SLAC wrist. This document has been electronically signed by: Nakita Germain MD on 03/27/2025 15:11:53
--- NOTE | ~2025-03-27 | XR_ITS ---
CLINICAL HISTORY: atraumatic L hand swelling pain 3 view left hand Comparison: None provided Findings: Multiple small bone fragments within the posterior aspect of the wrist. Chronic appearing deformity of the head of the 1st metacarpal. No dislocation. There are findings of SLAC wrist. There is severe chondrocalcinosis. There is a degenerative cyst within the hamate. No erosions. No radiopaque foreign body. IMPRESSION: 1. There are bone fragments within the posterior aspect of the carpus, likely chronic. 2. There are findings of SLAC wrist. This document has been electronically signed by: Nakita Germain MD on 03/27/2025 15:13:11
[2025-03-27 14:23] VITALS: BP 109/62; PULSE 71; RESP 16; TEMP 36.5; O2SAT 99; BMI 20.2
--- NOTE | 2025-03-27 14:24 | ED.UPPEXIN ---
HPI - Extremity Injury (Upper) General Chief Complaint: Extremity Problem Stated Complaint: Pain on left arm Time Seen by Provider: 03/27/25 15:00 Source: patient Mode of arrival: ambulatory Limitations: no limitations History of Present Illness ED Provider: Dr. Conner Forrest HPI narrative: 64-year-old male with a history of GERD, hyperlipidemia, López's esophagitis, gout, chronic lumbar back pain/post-laminectomy syndrome, osteoarthritis, obstructive sleep apnea, depression, migraines, patient states that the symptoms started yesterday at 05:00 hours and got progressively worse. Initially the pain and swelling was in his wrist in his now spread to his hand. Patient states he has had similar problems in the past with gout. He denied fever or chills. He denied sore throat, cough, chest pain, shortness of breath, nausea, vomiting or diarrhea. The patient does take [place] (acetaminophen/hydrocodone) but he states that this has not relieving his pain. Related Data Home Medications ?Medication ?Instructions ?Recorded ?Confirmed cyclobenzaprine 5 mg tablet 5 mg PO TID PRN 12/18/23 atorvastatin 20 mg tablet (Lipitor) 20 mg PO DAILY 02/25/25 hydrocodone 5 mg-acetaminophen 325 1 tab PO DAILY PRN severe pain 02/25/25 mg tablet clonazepam 0.5 mg tablet (Klonopin) 0.5 mg PO DAILY 03/18/25 Previous Rx's ?Medication ?Instructions ?Recorded hydromorphone 4 mg tablet 4 mg PO Q6H PRN pain #10 tabs 03/27/25 (Dilaudid) hydromorphone 4 mg tablet 4 mg PO Q6H PRN pain #8 tabs 03/27/25 (Dilaudid) prednisone 10 mg tablet 10 mg PO DIRECTED #40 tabs 03/27/25 prednisone 10 mg tablet 10 mg PO DIRECTED #40 tabs 03/27/25 Allergies Allergy/AdvReac Type Severity Reaction Status Date / Time oxycodone (From PERCOCET) Allergy Intermediate RASH Verified 03/27/25 14:24 Review of Systems Review of Systems: Yes all other systems are reviewed and are negative [facility] Past Medical History [facility] Narrative: Social history: He denies tobacco, alcohol and drug use. Medical History SUSAN (obstructive sleep apnea) Barretts esophagus Nicotine dependence, cigarettes, uncomplicated Pure hypercholesterolemia Mild recurrent major depression Gout Chronic pain syndrome Postlaminectomy syndrome, lumbar Multiple myeloma in remission Anxiety Migraines GERD (gastroesophageal reflux disease) Surgical History History of esophageal hernia repair History of colonoscopy History of fusion of cervical spine (~07/2012) History of colostomy reversal (~2012) History of endoscopy History of tonsillectomy History of cholecystectomy (~01/2017) History of appendectomy (~2012) History of bone marrow biopsy (~12/2021) History of lumbar laminectomy for spinal cord decompression (~10/2021) History of cataract surgery (~01/2021) History of surgery on right wrist (~1989) Family History Family History Mother Diabetes mellitus Father Stroke Social History Social History Housing: Apartment Alcohol intake: never Patient Tobacco Use Status: Current everyday Tobacco user Tobacco use type: Cigarette Cigarettes Per Day: 7 Years Smoked: (onset 23yo, x 39yrs, max 2ppd, mainly 1ppd, now 1/2ppd - 40pyh) e-Cigarette/Vaping Use: Never Used Second Hand Smoke Exposure: No Advance Directives: No Advance Directives Information Provided: No service: No Current occupational status: disabled Cognitive needs: No Hearing needs: No Vision needs: Yes (pt had eye surg. so he doesnt need glasses) Physical Exam Vital Signs: Vital Signs: Last Vital Signs Temp 97.7 F 03/27/25 15:53 Pulse 71 03/27/25 15:53 Resp 16 03/27/25 15:53 BP 109/62 03/27/25 15:53 Pulse Ox 99 03/27/25 15:53 O2 Del Method Room Air 03/27/25 15:53 BMI result Body Mass Index 20.2 Vital signs were normal Exam: General: Awake, alert in no distress Extremities: Increased warmth and swelling CMC and MCP joints of the wrist and hand, exquisite tenderness with palpation over these joints, significant pain with passive and active range of motion, extremities neurovascularly intact Psych: Pleasant, cooperative Course Course Course Narrative: 03/27/25 [id number] KALI Gallegos This is a Rapid Medical Examination (RME) performed by Erna Lemus PA-C in triage. Full HPI, ROS, assessment and treatment plan per primary provider in the Main ED. Hx: 64 yo M here w/ atraumatic L wrist swelling on waking this morning. hx gout, bone cancer (in remission) PE/vitals: noted swelling/erythema to L wrist. unable to flex/extend. 2+ radial pulse. Plan: labs, xr Medications Administered Discontinued Medications Generic Name Dose Route Start Last Admin Trade Name Freq PRN Reason Stop Dose Admin Ketorolac Tromethamine 60 mg 03/27/25 15:22 03/27/25 15:29 Ketorolac Tromethamine 60 Mg/2 Ml Vial IM 03/27/25 15:23 60 mg ONCE ONE Administration Prednisone 40 mg 03/27/25 15:22 03/27/25 15:29 Prednisone 20 Mg Tablet PO 03/27/25 15:23 40 mg ONCE ONE Administration Medical Decision Making Medical Decision Making [facility] Narrative: 64-year-old male with a history of GERD, hyperlipidemia, López's esophagitis, gout, chronic lumbar back pain/post-laminectomy syndrome, osteoarthritis, obstructive sleep apnea, depression, migraines, patient states that the symptoms started yesterday at 05:00 hours and got progressively worse. Initially the pain and swelling was in his wrist in his now spread to his hand. Patient states he has had similar problems in the past with gout. He denied fever or chills. He denied sore throat, cough, chest pain, shortness of breath, nausea, vomiting or diarrhea. The patient does take [place] (acetaminophen/hydrocodone) but he states that this has not relieving his pain. Vital signs were normal. Exam revealed erythema with increased warmth and soft tissue swelling over CMC and MCP joints of the hand and wrist. Differential diagnosis: ?Includes but is not limited to acute gout flare-up, cellulitis, inflammatory arthritis, septic arthritis Course: My independent interpretation patient's laboratory evaluation is as follows: WBC was normal 7000. Normocytic anemia with an H&H of 12.8 and 35.8. Platelet count was low 146,000. BUN elevated 20 with a normal creatinine of 1.01. AST elevated 59. C-reactive protein elevated 1.21. ESR was normal 14. Uric acid was normal 5.0 X-rays of the patient's right hand consistent with significant degenerative arthritis with chondrocalcinosis suggesting that the patient has pseudogout. At this time I suspect that the patient's findings are more consistent with his pseudogout as opposed to infectious process and I did discuss this with him. Patient was treated with Toradol 60 mg IM and prednisone 40 mg orally. Patient was given a prescription for a 5 day pulse dose of 40 mg with a tapering dose of decreasing by 10 mg every 2 days. Patient states that it as hydrocodone was not helping with his pain. There is a shortage of morphine in the patient's he is allergic to oxycodone therefore he was given a prescription for Dilaudid 4 mg, 1 pill every 6 hours as needed for pain. He was given printed and verbal instructions and discharged home. Admission/Observation Consideration of admission/observation: Escalation of care including admission/observation considered (Yes) Lab Data MDM Lab Attestation statement: I reviewed the patient's lab results. 03/27/25 14:30 03/27/25 14:30 Labs: Lab Results 03/27/25 Range/Units 14:30 WBC 7.0 (4.8-10.8) X10*3/uL RBC 4.25 L (4.60-5.80) X10*6/uL Hgb 12.8 L (14.0-18.0) g/dl Hct 38.5 L (42.0-52.0) % MCV 90.6 (80.0-98.0) fL MCH 30.1 (27.0-33.0) pg MCHC 33.2 (31.0-36.0) g/dl RDW 14.2 (11.0-16.0) % Plt Count 146 L D (160-400) X10*3/uL MPV 9.3 L (9.4-12.4) fL Immature Gran % (Auto) 0.1 (0.0-0.4) % Neut % (Auto) 66.6 (45-73) % Lymph % (Auto) 23.9 (20-40) % Dewey % (Auto) 7.0 (2-11) % Eos % (Auto) 1.7 (0-4) % Baso % (Auto) 0.7 (0-2) % Lymph # (Auto) 1.7 (1.2-4.9) X10*3/uL Dewey # (Auto) 0.5 (0.1-1.2) X10*3/uL Eos # (Auto) 0.1 (0.0-0.4) X10*3/uL Baso # (Auto) 0.1 (0.0-0.2) X10*3/uL Abs Immat Gran (auto) 0.01 (0.00-0.03) X10*3/uL Absolute Neuts (auto) 4.6 (2.0-8.3) x10*3/uL Absolute Nucleated RBC 0.000 (0.0-0.012) X10*3/uL Nucleated RBC % (auto) 0.0 (0.0-0.2) /100WBC ESR 14 (0-15) MM/HR Sodium 145 (135-145) mmol/L Potassium 4.4 (3.3-5.1) mmol/L Chloride 108 (96-108) mmol/L Carbon Dioxide 29 (22-29) mmol/L Anion Gap 12 (12-20) BUN 20 H (9-16) mg/dL Creatinine 1.01 (0.5-1.4) mg/dL Estim Creat Clear Calc 55.9 Estimated GFR > 60 Random Glucose 60 (60-115) mg/dL Uric Acid 5.0 (3.4-7.0) mg/dL Calcium 9.3 (8.4-10.2) mg/dL Total Bilirubin 0.3 (0.0-1.0) mg/dL AST 59 H (5-37) U/L ALT 26 (0-40) U/L Alkaline Phosphatase 76 (39-117) U/L C-Reactive Protein 1.12 H (< or = 0.50) mg/dL Total Protein 6.5 (6.5-8.0) g/dL Albumin 4.1 (3.5-5.0) g/dL Independent Interpretation I performed an independent interpretation of an: Plain X-Ray Interpretation: My independent interpretation of the patient's left hand x-ray is as follows: Severe degenerative arthritis with stone fragments and chondrocalcinosis Radiology Impression Discussion of test interpretation with radiology: I have reviewed the radiologist's reading. Radiologist Impression: 3 view left hand Comparison: None provided Findings: Multiple small bone fragments within the posterior aspect of the wrist. Chronic appearing deformity of the head of the 1st metacarpal. No dislocation. There are findings of SLAC wrist. There is severe chondrocalcinosis. There is a degenerative cyst within the hamate. No erosions. No radiopaque foreign body. IMPRESSION: 1. There are bone fragments within the posterior aspect of the carpus, likely chronic. 2. There are findings of SLAC wrist. This document has been electronically signed by: Nakita Germain MD on 03/27/2025 15:13:11 Prescription Management I considered prescription management with: Pain Medication (Dilaudid) and Other (Anti-inflammatory steroids: Prednisone) Chronic Conditions Patient?s care impacted by: Other (Hyperlipidemia, GERD) Discharge Plan Discharge Clinical Impression: Acute gout of left wrist, Acute gout of left hand Patient Disposition: Home, Self-Care Instructions: Low Purine Diet (ED), Gout (ED) Additional Instructions: Your x-rays did not reveal any new broken bones. The x-rays did reveal significant arthritis of your wrists, this has not new and this has not the cause of your pain. The radiologist did not see any broken bones on their interpretation of your x-ray. The redness and pain in your hand and wrists are caused by gout (crystals that forearm in the joints and then caused inflammation and redness of the jaw). You were treated in the emergency department with prednisone 40 mg orally. Take prednisone 10 mg pills, 4 pills for 5 days then decrease by 1 pill every 2 days until you complete the prescription. Take your next dose of prednisone at 4 PM. While you ?are taking prednisone, do not take any NSAIDs (Motrin, Advil, ibuprofen, Aleve, naproxen). Take Tylenol (acetaminophen) 500 mg pills, 2 pills every 6 hours as needed for pain. For pain not relieved by ibuprofen or Tylenol take Dilaudid (hydromorphone) 4 mg pills, 1 pill every 6 hours as needed for pain. Do not drive or work while taking this medication since they can cause sleepiness. Dilaudid (hydromorphone) is a narcotic medication that can be addicting. If you are concerned about addiction you can ask the pharmacist for less pills or do not get this prescription filled. DO NOT TAKE YOUR OXYCODONE WHY YOU ARE TAKING THE DILAUDID. Follow-up with your doctor in 2 days. Please return to the emergency department if your symptoms get worse or if you develop any symptoms that are concerning to you. Prescriptions: New prednisone 10 mg tablet 10 mg PO DIRECTED Qty: 40 0RF Rx Instructions: Day 1-7, 4pills. Day 8-9, 3 pills. Day 10-11, 2 pills. Day 12-13, 1 pill hydromorphone [Dilaudid] 4 mg tablet 4 mg PO Q6H PRN (Reason: pain) Qty: 10 0RF Rx Instructions: Partial Fill upon patient request. hydromorphone [Dilaudid] 4 mg tablet 4 mg PO Q6H PRN (Reason: pain) Qty: 8 0RF Rx Instructions: Partial Fill upon patient request. prednisone 10 mg tablet 10 mg PO DIRECTED Qty: 40 0RF Rx Instructions: Day 1-7, 4pills. Day 8-9, 3 pills. Day 10-11, 2 pills. Day 12-13, 1 pill No Action cyclobenzaprine 5 mg tablet 5 mg PO TID PRN atorvastatin [Lipitor] 20 mg tablet 20 mg PO DAILY hydrocodone-acetaminophen 5-325 mg tablet 1 tab PO DAILY PRN (Reason: severe pain) clonazepam [Klonopin] 0.5 mg tablet 0.5 mg PO DAILY Interventions: ED Discharge Assessment Last Done: 03/27/25 15:53 Discharge Date/Time: 03/27/25 15:53 Print Language: Sinhala
[2025-03-27 14:35] LABS: MANUAL DIFF FLAG NO
[2025-03-27 14:38] LABS: Hematocrit 38.5 % (42.0-52.0); Hemoglobin 12.8 g/dl (14.0-18.0); Imm Gran Abs Auto 0.01 X10*3/uL (0.00-0.03); Imm Gran Pct Auto 0.1 % (0.0-0.4); Lymphocytes Absolute Auto 1.7 X10*3/uL (1.2-4.9); Mean Corpuscular HGB Conc 33.2 g/dl (31.0-36.0); Mean Corpuscular Hemoglobin 30.1 pg (27.0-33.0); Mean Corpuscular Volume 90.6 fL (80.0-98.0); NRBC Abs Auto 0.000 X10*3/uL (0.0-0.012); NRBC Pct Auto 0.0 /100WBC (0.0-0.2); Platelet Count 146 X10*3/uL (160-400); Red Blood Count 4.25 X10*6/uL (4.60-5.80); White Blood Count 7.0 X10*3/uL (4.8-10.8)
--- OUTSIDE RECORDS SUMMARY | 2025-03-27 14:52 | XMS_ITS | Encounter Summary ---
Author Organization [facility] Address [address] [place] [address] Care Team Providers Care Concrete Pointer Name Role Phone Unavailable Primary Care Provider Unavailabl e Encounter Details Date Type Department Care Team (Late st Contact Info) Description 01/30/2022 Dental Interim Note [facility] Main Dental [address] [place] [address] Melissa Lopez Y [address] [place] [address] Social History Tobacco Use Types Packs/Day Years [...]
--- OUTSIDE RECORDS SUMMARY | 2025-03-27 14:52 | XMS_ITS | Patient Health Record ---
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 [id number] (PPO) [address] [address] [place] [address] [id number] BRIANNA ANGUIANO Self - patient is the insured Medical (General) History Medical History History ICD Code severe depression severe anxiety cancer bone sciatic nerve athritis Surgical History Surgery Date(Month/Year) sciatic 3 sufugus hernia
--- OUTSIDE RECORDS SUMMARY | 2025-03-27 14:52 | XMS_ITS | Clinical Summary ---
Author Organization [facility] Address [address] [place] [address] Care Team Providers Care Forester Silviculture Name Role Phone Unavailable Primary Care Provider [...] topic Robert Osman Personal/Family Self 1960 [id number] [place] [id number]
--- OUTSIDE RECORDS SUMMARY | 2025-03-27 14:52 | XMS_ITS | Encounter Summary ---
Author Organization [facility] Address [address] [place] [address] Care Team Providers Care Detention Worker Name Role Phone Community, Pcp Primary Care Provider Vianca Matamoros MD Primary Care Provider Renetta Martin MD Primary Care Provider Shabbir Benítez, Pcp Primary Care Provider Bruce Rajput MD, PHD Unavailable Unava ilEdilma Serrano PA-C Unavailable [phone] Griffin Fuentes PA-C Unavailable [phone] Rochelle Ling MD Primary Care Provider Shabbir goodrich Encounter Details Date Type Department Care Team Description 09/16/2012 Hospital Medical Records [address] [place], [place] [id number] [place] [address] Social History Tobacco Use Types Packs/Day Years Used Date Smoking Tobacco: Every Day Cigarettes 0.5 43 Started: 09/02/1976 Smokeless Tobacco: Never Comments:5 cigarettes in a d ay Alcohol Use Standard Drinks/Week Comments No 0 (1 standard drink = 0.6 oz pur e alcohol) Physical Activity Answer Date Recorded On average, how many days pe r week do you engage in moderate to strenuous exercise (like walking fast, running, jogging, dancing, swimming, biking, or other activities that cause a light or heavy sweat)? 0 days 05/19/2020 On average, how many minutes do you engage in exercise at this level? Not asked 05/19/2020 Sex Assigned at Date Recorded Not on file Job Start Date Occupation Industry Not on file Not on file Not on file documented as of this encounter Plan of Treatment Not on file documented as of this encounter Visit Diagnoses Not on filedocumented in this encounter Care Teams Detention Worker Relationship Specialty Start Date End Date Community, Pcp PCP - General Internal Medicine 06/17/18 06/19/18 Vianca Estrada MD PCP - General Internal Medicine 06/20/18 07/04/21 Renetta Adams MD PCP - General Internal Medicine 07/05/21 09/13/21 [facility], Pcp PCP - General Internal Medicine 09/14/21 01/10/22 Rochelle Ling MD [address] [facility] [address] [place] [address] PCP - General Internal Medicine 01/11/22 Bruce Walton MD, PHD Surgeon Neurosurgery 11/16/21 Edilma Pyle PA-C [address] [address] Specialist Neurosurgery 11/16/21 Griffin Fuentes PA-C [address] [address] Specialist Neurosurgery 11/16/21 documented as of this encounter
[2025-03-27 15:08] LABS: Alanine Aminotransferase 26 U/L (0-40); Albumin Level 4.1 g/dL (3.5-5.0); Alkaline Phosphatase 76 U/L (39-117); Anion Gap 12 (12-20); Aspartate Amino Transferase 59 U/L (5-37); Blood Urea Nitrogen 20 mg/dL (9-16); Calcium 9.3 mg/dL (8.4-10.2); Carbon Dioxide 29 mmol/L (22-29); Chloride 108 mmol/L (96-108); Creatinine Clr Calc Pharmacy 55.9; Estimated Glomerular Filt Rate > 60; Potassium 4.4 mmol/L (3.3-5.1); Sodium 145 mmol/L (135-145); Total Protein 6.5 g/dL (6.5-8.0); Uric Acid 5.0 mg/dL (3.4-7.0)
[2025-03-27 15:53] VITALS: BP 109/62; PULSE 71; RESP 16; TEMP 36.5; O2SAT 99
== END 2025-03-27 15:53 | disposition home or self-care (01) ==
PROVIDERS: Physician Assistant Medical; Emergency Provider Emergency Medicine Emergency Medical Services; PCP Internal Medicine
DX: M10.9 Gout, unspecified (principal); M25.531 Pain in right wrist; M79.642 Pain in left hand; F17.210 Nicotine dependence, cigarettes, uncomplicated; E78.00 Pure hypercholesterolemia, unspecified; Z79.899 Other long term (current) drug therapy; Z79.02 Long term (current) use of antithrombotics/antiplatelets
CPT/HCPCS: 36415; 73110; 73130; 80053; 84550; 85025; 85652; 86140; 96372; 99283; 99284; J1885

== ENCOUNTER → 2025-03-27 14:25 | Outpatient (BNV) | payer OTHER, SELFPAY | PROVIDERS: Emergency Provider Emergency Medicine Emergency Medical Services; PCP Internal Medicine; Visit Provider Radiology Diagnostic Radiology | DX: M19.032 Primary osteoarthritis, left wrist (principal); R22.32 Localized swelling, mass and lump, left upper limb | CPT/HCPCS: 73110; 73130 ==